=== PATIENT | female | born 1970 | race African-American/Black ===

== ENCOUNTER 2018-08-19 08:58 | Day surgery (SDC) | payer OTHER ==
[2018-08-19] MEDS ORDERED: DUOVISC 1 KIT OPTH ONE (09:15)
[2018-08-19] MEDS ORDERED: BALANCED SALT IRRIG PLAIN 500 ML BTL IRR ONE (09:15)
[2018-08-19] MEDS ORDERED: MOXIFLOXACIN HCL 10 DROPS/ML **OR USE OPTH ONE (09:15)
[2018-08-19] MEDS ORDERED: EPINEPHRINE/PF 1 MG/ML AMP ONE (09:15)
[2018-08-19] MEDS ORDERED: NS 0.9% VIAL 10 ML ONE (09:15)
[2018-08-19] MEDS ORDERED: GENTAMICIN 0.3% OPTH DROP 5ML OPTH SCH (09:30)
[2018-08-19] MEDS ORDERED: NA CHLORIDE 0.9% 500 ML ONE (09:39)
[2018-08-19] MEDS: CYCLOPENTOLATE 1% OPTH 2 ML ONE ×3 (09:40→09:55)
[2018-08-19] MEDS: PHENYLEPHRINE 10% OPTH 5ML ONE ×3 (09:40→09:55)
[2018-08-19] MEDS: TETRACAINE HCL 0.5% 2ML OPTH ONE ×2 (09:59→10:43)
[2018-08-19] MEDS: BUPIVACAINE 0.25% PF 10 ML VIAL ONE ×2 (09:59→10:44)
[2018-08-19] MEDS: LIDOCAINE 2% MPF 5 ML VIAL ONE ×2 (10:00→10:44)
[2018-08-19] MEDS ORDERED: LIDOCAINE 1% MPF 5 ML VIAL ONE (10:49)
[2018-08-19] MEDS ORDERED: MIDAZOLAM HCL 2 MG/2 ML INJ ONE (10:49)
[2018-08-19] MEDS ORDERED: PROPOFOL 200 MG/20 ML VIAL IV ONE (10:49)
--- NOTE | 2018-08-19 11:29 | P.BOP ---
Preoperative diagnosis: Nuclear sclerotic and cortical cataract OD Postoperative diagnosis: Same Primary procedure: Phacoemulsification with IOL OD Estimated blood loss: None Anesthesia: Local (Subtenon's infusion with anesthesia for cataract surgery) Complications: None Implants: ZCB00 +13.0 Transferred to: Other (Day surgery) Condition: Good
[2018-08-19 12:07] VITALS: BP 139/80; TEMP 97.6; O2SAT 100
--- NOTE | 2018-08-19 22:33 | OP ---
Date of Procedure: 08/19/2018 Surgeon: Elyssa Floyd MD Anesthesiologist: Marty Menezes CRNA and Gustavo Thapa M.D. Preoperative Diagnosis: Nuclear sclerotic and cortical cataract, right eye. Operation Performed: Phacoemulsification with intraocular lens implant, right eye. Anesthesia: Per cataract surgery. Complications: None. Description Of Procedure: In day surgery, the patient was prepped with Betadine and draped. A conju nctival incision was made in the inferior nasal quadrant with Christy scissors. A sub-Tenon block c onsisting of a 1:1 mixture of 2% Xylocaine and 0.25% bupivacaine was placed through the conjunctival incision with a blunt cannula. A Honan balloon was placed over the eye and the patient was transferr ed to the operating room. In the operating room the patient was prepped and draped in the usual sterile fashion for ophthalmic surgery. A lid speculum was placed in the right eye. Two paracentesis sites were made superiorly an d inferiorly in the limbal cornea. Viscoat was placed in the anterior chamber and a crescent blade w as used to make a corneal groove and tunnel, and a keratome was used to enter the anterior chamber. Provisc was placed in the anterior chamber and a 360 degree capsulotomy was performed with a cystitom e. The lens was hydrodissected with BSS and rotated freely. The lens was removed with a stop and ch op technique. 5.08 Phaco CDE was used to remove the lens. Residual cortex was removed with the irri gation and aspiration. Provisc was placed in the capsular bag. A ZCB00 +13.0 lens was placed in the capsular bag without complications. Irrigation and aspiration were used to remove residual viscoela stic. The paracentesis sites were hydrated with BSS. The wound and paracentesis sites were inspecte d and found to be watertight. Vigamox 0.07 cc was placed intracamerally at the end of the procedure. The eye was irrigated with balanced salt solution. The eye was patched with a soft cotton patch an d Pope metal shield. The patient was returned to day surgery in good condition. Comments: Discharge Instructions: Ms. Swan is discharged to home in good condition. She is to follow up dante Floyd today at 3 and then in the morning. YESSIL/JEVON Voice ID: [id number] Report ID: [id number]
== END 2018-08-19 11:55 | disposition home or self-care (01) ==
LOC: OR 08:58
PROVIDERS: ATTEND Ophthalmology Retina Specialist
PROC: 08RJ3JZ Replacement of Right Lens with Synthetic Substitute, Percutaneous Approach (ICD-10-PCS; principal; 2018-08-19 10:00)
DX: H25.11 Age-related nuclear cataract, right eye (principal); H25.011 Cortical age-related cataract, right eye; H40.053 Ocular hypertension, bilateral; I10 Essential (primary) hypertension; K21.9 Gastro-esophageal reflux disease without esophagitis; E66.01 Morbid (severe) obesity due to excess calories; Z68.36 Body mass index [BMI] 36.0-36.9, adult; Z83.518 Family history of other specified eye disorder; Z83.3 Family history of diabetes mellitus
CPT/HCPCS: 66984; J0171; J2250; J2704

== ENCOUNTER 2019-01-03 00:42 | Emergency (ER) | payer OTHER ==
[2019-01-03] MEDS ORDERED: ONDANSETRON 4 MG/2 ML VIAL ONE (01:32)
[2019-01-03] MEDS ORDERED: FENTANYL CITR 100 MCG/2 ML ONE ×2 (01:32→02:16)
[2019-01-03] MEDS ORDERED: FAMOTIDINE 20 MG/2 ML VIAL IV ONE (01:32)
[2019-01-03] MEDS ORDERED: NA CHLORIDE 0.9% 1,000 ML ONE (01:32)
[2019-01-03 01:46] LABS: Absolute Lymphocytes (CBC) 2.4 K/uL (0.7-4.9); Absolute Monocytes 0.6 K/uL (0.1-1.3); Absolute Neutrophil 13.5 K/uL (1.8-8.0); Basophils % 0.4 % (0-1.3); Eosinophils % 0.2 % (0-4.4); Hematocrit 50.7 % (36.0-45.0); Lymphocytes % 14.5 % (15.3-44.8); MPV 7.5 fL (7.6-11.3); Monocytes % 3.9 % (3.3-12.3); RBC Red Blood Cell Count 5.85 M/uL (3.86-4.86)
[2019-01-03 01:59] LABS: Albumin 3.9 g/dL (3.4-5.0); Bilirubin Direct 0.4 mg/dL (0-0.2); Bilirubin Total 1.7 mg/dL (0.2-1.0); Potassium 3.9 mmol/L (3.5-5.1); Protein, Total 9.2 g/dL (6.4-8.2)
[2019-01-03 02:58] LABS: Urine Bacteria 20-50 /HPF (<20); Urine Culture Reflex Order REFLEXED; Urine RBC <5 /HPF (NONE SEEN)
[2019-01-03] MEDS ORDERED: MORPHINE 4 MG/ML SYR ONE (04:15)
--- NOTE | 2019-01-03 04:30 | EDPHYS ---
Physician Documentation [facility] Name: Vanna Swan Age: 48 yrs Sex: Female : 1970 Arrival Date: 01/03/2019 Time: 00:48 Bed 5 Private MD: ED Physician Gamaliel Olsen HPI: 01/03 04:25 This 48 yrs old Black Female presents to ER via EMS with complaints of gs Nausea/Vomiting/Diarrhea. 04:25 The patient presents to the emergency department with nausea, vomiting, diarrhea. gs Onset: The symptoms/episode began/occurred acutely, yesterday. Possible causes: unknown. The symptoms are aggravated by nothing. The symptoms are alleviated by nothing. Associated signs and symptoms: Pertinent positives: abdominal pain, Pertinent negatives: fever. Severity of symptoms: At their worst the symptoms were severe in the emergency department the symptoms have improved markedly. The patient has experienced similar episodes in the past, a few times. The patient has not recently seen a physician. USED [facility] [employer] [facility]: 00:53 LMP N/A - ao Historical: - Allergies: 00:52 No Known Allergies; ao - Home Meds: 00:52 Lisinopril Oral [Active]; pantoprazole oral oral [Active]; topiramate oral oral ao [Active]; - PMHx: 00:52 Irregular heart rate; Hypertension; Ulcers; ao - PSHx: 00:52 None; ao - Immunization history:: Adult Immunizations up to date. - Social history:: Smoking status: Patient uses tobacco products, smokes one pack cigarettes per day. Patient uses alcohol, occasionally. Patient/guardian denies using street drugs, IV drugs. - Ebola Screening: : Patient negative for fever greater than or equal to 101.5 degrees Fahrenheit, and additional compatible Ebola Virus Disease symptoms Patient denies exposure to infectious person Patient denies travel to an Ebola-affected area in the 21 days before illness onset. ROS: 04:25 All other systems are negative. gs Exam: 04:25 Head/Face: Normocephalic, atraumatic. Eyes: Pupils equal round and reactive to light, gs extra-ocular motions intact. Lids and lashes normal. Conjunctiva and sclera are non-icteric and not injected. Cornea within normal limits. Periorbital areas with no swelling, redness, or edema. ENT: Nares patent. No nasal discharge, no septal abnormalities noted. Tympanic membranes are normal and external auditory canals are clear. Oropharynx with no redness, swelling, or masses, exudates, or evidence of obstruction, uvula midline. Mucous membranes moist. Neck: Trachea midline, no thyromegaly or masses palpated, and no cervical lymphadenopathy. Supple, full range of motion without nuchal rigidity, or vertebral point tenderness. No Meningismus. Chest/axilla: Normal chest wall appearance and motion. Nontender with no deformity. No lesions are appreciated. 04:25 Respiratory: Lungs have equal breath sounds bilaterally, clear to auscultation and percussion. No rales, rhonchi or wheezes noted. No increased work of breathing, no retractions or nasal flaring. Back: No spinal tenderness. No costovertebral tenderness. Full range of motion. Skin: Warm, dry with normal turgor. Normal color with no rashes, no lesions, and no evidence of cellulitis. MS/ Extremity: Pulses equal, no cyanosis. Neurovascular intact. Full, normal range of motion. Neuro: Awake and alert, GCS 15, oriented to person, place, time, and situation. Cranial nerves II-XII grossly intact. Motor strength 5/5 in all extremities. Sensory grossly intact. Cerebellar exam normal. Normal gait. 04:25 Constitutional: The patient appears alert, awake. 04:25 Cardiovascular: Rate: tachycardic, Rhythm: regular, Pulses: no pulse deficits are appreciated. 04:25 Abdomen/GI: Palpation: mild abdominal tenderness, in all quadrants, rebound tenderness, is not appreciated. Vital Signs: 00:53 BP 119 / 89; Pulse 114; Resp 20; Temp 98.2(O); Pulse Ox 98% on R/A; Weight 132.9 kg ao (R); Height 6 ft. 2 in. (187.96 cm) (R); Pain 7/10; 01:55 BP 112 / 84; Pulse 98; Resp 16; Pulse Ox 99% ; ao 03:34 BP 113 / 83; Pulse 83; Resp 16; Pulse Ox 98% on R/A; ao 04:50 BP 115 / 75; Pulse 84; Resp 16; Temp 98.0(O); Pulse Ox 99% on R/A; Pain 0/10; ao 00:53 Body Mass Index 37.62 (132.90 kg, 187.96 cm) ao MDM: 01:02 Patient medically screened. 04:25 Differential diagnosis: Nonspecific abd pain, gastritis, pancreatitis, viral gs gastroenteritis, gastroenteritis. Data reviewed: vital signs, nurses notes. Counseling: I had a detailed discussion with the patient and/or guardian regarding: the historical points, exam findings, and any diagnostic results supporting the discharge/admit diagnosis, lab results, radiology results, the need for outpatient follow up. Response to treatment: the patient's symptoms have markedly improved after treatment, the patient's symptoms have resolved after treatment, patient is well hydrated. 01/03 01:01 Order name: Basic Metabolic Panel; Complete Time: 02:51 01/03 01:01 Order name: CBC with Diff; Complete Time: 02:51 01/03 01:01 Order name: Hepatic Function; Complete Time: 02:51 01/03 01:01 Order name: Lipase; Complete Time: 02:51 01/03 01:01 Order name: Urine Microscopic Only; Complete Time: 04:33 01/03 03:01 Order name: Urine Culture EDDE 01/03 01:01 Order name: IV Saline Lock; Complete Time: 01:36 01/03 02:52 Order name: CT Abd/Pelvis - W/Contrast 01/03 01:01 Order name: Labs collected and sent; Complete Time: 01:36 01/03 01:01 Order name: Urine Test (obtain specimen); Complete Time: 01:36 01/03 01:01 Order name: Urine Dipstick-Ancillary (obtain specimen); Complete Time: 01:36 gs Administered Medications: 01:30 Drug: Zofran 4 mg Route: IVP; Site: right antecubital; ao 04:55 Follow up: Response: No adverse reaction ao 01:34 Drug: NS 0.9% 1000 ml Route: IV; Rate: 1 bolus; Site: right antecubital; ao 04:55 Follow up: IV Status: Completed infusion; IV Intake: 1000ml ao 01:35 Drug: Pepcid 20 mg Route: IVP; Site: right antecubital; ao 04:55 Follow up: Response: No adverse reaction ao 01:35 Drug: fentaNYL (PF) 50 mcg Route: IVP; Site: right antecubital; ao 04:55 Follow up: Response: No adverse reaction ao 02:04 Drug: fentaNYL (PF) 50 mcg Route: IVP; Site: right antecubital; ao 04:54 Follow up: Response: No adverse reaction ao 04:05 Drug: morphine 4 mg Route: IVP; Site: right antecubital; ao 04:53 Follow up: Response: No adverse reaction ao Disposition: 01/03/19 04:29 Discharged to Home. Impression: Noninfective gastroenteritis and colitis, unspecified. - Condition is Stable. - Prescriptions for Tylenol- Codeine #4 300-60 mg Oral Tablet - take 1 tablet by ORAL route every 6 hours As needed; 10 tablet. Zofran 4 mg Oral Tablet - take 1 tablet by ORAL route every 12 hours As needed; 10 tablet. Flagyl 250 mg Oral Tablet - take 1 tablet by ORAL route every 12 hours for 5 days; 10 tablet. - Medication Reconciliation Form, Thank You Letter, Antibiotic Education, Prescription Opioid Use form. - Follow up: Private Physician; When: 2 - 3 days; Reason: Re-evaluation by your physician. Signatures: Dispatcher [employer] Homar Clifton RN RN Gamaliel Salinas MD MD Corrections: (The following items were deleted from the chart) 04:56 04:29 01/03/2019 04:29 Discharged to Home. Impression: Noninfective gastroenteritis and ao colitis, unspecified. Condition is Stable. Forms are Medication Reconciliation Form, Thank You Letter, Antibiotic Education, Prescription Opioid Use. Follow up: Private Physician; When: 2 - 3 days; Reason: Re-evaluation by your physician. gs
--- NOTE | 2019-01-03 04:30 | ER ---
Nurse's Notes [facility] Name: Vanna Swan Age: 48 yrs Sex: Female : 1970 Arrival Date: 01/03/2019 Time: 00:48 Bed 5 Private MD: Diagnosis: Noninfective gastroenteritis and colitis, unspecified Presentation: 01/03 00:48 Presenting complaint: Patient states: Patient C/O nausea, vomiting and diarrhea for a ao day. Patient also C/O abdominal pain. Patient reports last eating was chicken yesterday. Transition of care: patient was not received from another setting of care. Onset of symptoms is unknown. Risk Assessment: Do you want to hurt yourself or someone else? Patient reports no desire to harm self or others. Initial Sepsis Screen: Does the patient meet any 2 criteria? No. Patient's initial sepsis screen is negative. Does the patient have a suspected source of infection? No. Patient's initial sepsis screen is negative. Care prior to arrival: None. 00:48 Method Of Arrival: EMS: [facility] ao 00:48 Acuity: AILEEN 3 ao Triage Assessment: 00:55 General: Appears in no apparent distress. comfortable, Behavior is calm, cooperative, ao appropriate for age. Pain: Complains of pain in abdomen Pain does not radiate. Pain currently is 7 out of 10 on a pain scale. EENT: No signs and/or symptoms were reported regarding the EENT system. Neuro: Level of Consciousness is awake, alert, obeys commands, Oriented to person, place, time, situation, Appropriate for age Moves all extremities. Full function Speech is normal, Facial symmetry appears normal. Cardiovascular: Capillary refill < 3 seconds Patient's skin is warm and dry. Respiratory: Airway is patent Respiratory effort is even, unlabored, Respiratory pattern is regular, symmetrical. GI: Abdomen is obese, Bowel sounds present X 4 quads. Reports lower abdominal pain. : No signs and/or symptoms were reported regarding the genitourinary system. Derm: No signs and/or symptoms reported regarding the dermatologic system. Musculoskeletal: No signs and/or symptoms reported regarding the musculoskeletal system. 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 - Social history:: Smoking status: Patient uses tobacco products, smokes one pack cigarettes per day. Patient uses alcohol, occasionally. Patient/guardian denies using street drugs, IV drugs. - Ebola Screening: : Patient negative for fever greater than or equal to 101.5 degrees Fahrenheit, and additional compatible Ebola Virus Disease symptoms Patient denies exposure to infectious person Patient denies travel to an Ebola-affected area in the 21 days before illness onset. Screenin:54 Abuse screen: Denies threats or abuse. Denies injuries from another. Nutritional ao screening: No deficits noted. Tuberculosis screening: No symptoms or risk factors identified. Fall Risk None identified. Assessment: 00:56 General: Appears See triage assessment. GI: No deficits noted. ao 01:55 Reassessment: Patient appears in no apparent distress at this time. No changes from ao previously documented assessment. Patient and/or family updated on plan of care and expected duration. Pain level reassessed. Patient is alert, oriented x 3, equal unlabored respirations, skin warm/dry/pink. 03:34 Reassessment: Patient appears in no apparent distress at this time. Patient and/or ao family updated on plan of care and expected duration. Pain level reassessed. Patient is alert, oriented x 3, equal unlabored respirations, skin warm/dry/pink. Waiting on dispo orders. 04:52 Reassessment: DC instruction given to patient. Patient agree with POC and to follow up ao with PCP. No questions at this time. Vital Signs: 00:53 BP 119 / 89; Pulse 114; Resp 20; Temp 98.2(O); Pulse Ox 98% on R/A; Weight 132.9 kg ao (R); Height 6 ft. 2 in. (187.96 cm) (R); Pain 7/10; 01:55 BP 112 / 84; Pulse 98; Resp 16; Pulse Ox 99% ; ao 03:34 BP 113 / 83; Pulse 83; Resp 16; Pulse Ox 98% on R/A; ao 04:50 BP 115 / 75; Pulse 84; Resp 16; Temp 98.0(O); Pulse Ox 99% on R/A; Pain 0/10; ao 00:53 Body Mass Index 37.62 (132.90 kg, 187.96 cm) ao ED Course: 00:47 Gamaliel Olsen MD is Attending Physician. gs 00:48 Patient arrived in ED. ao 00:50 Triage completed. ao 00:54 Arm band placed on right wrist. Patient placed in an exam room, on a stretcher, on ao pulse oximetry. 00:56 Patient has correct armband on for positive identification. Pulse ox on. NIBP on. ao 01:03 Homar Garces, RN is Primary Nurse. ao 01:30 Inserted saline lock: 22 gauge in right antecubital area, using aseptic technique. ao Blood collected. 03:37 CT Abd/Pelvis - W/Contrast In Process Unspecified. EDMS 04:52 No provider procedures requiring assistance completed. IV discontinued, intact, ao bleeding controlled, No redness/swelling at site. Pressure dressing applied. Administered Medications: 01:30 Drug: Zofran 4 mg Route: IVP; Site: right antecubital; ao 04:55 Follow up: Response: No adverse reaction ao 01:34 Drug: NS 0.9% 1000 ml Route: IV; Rate: 1 bolus; Site: right antecubital; ao 04:55 Follow up: IV Status: Completed infusion; IV Intake: 1000ml ao 01:35 Drug: Pepcid 20 mg Route: IVP; Site: right antecubital; ao 04:55 Follow up: Response: No adverse reaction ao 01:35 Drug: fentaNYL (PF) 50 mcg Route: IVP; Site: right antecubital; ao 04:55 Follow up: Response: No adverse reaction ao 02:04 Drug: fentaNYL (PF) 50 mcg Route: IVP; Site: right antecubital; ao 04:54 Follow up: Response: No adverse reaction ao 04:05 Drug: morphine 4 mg Route: IVP; Site: right antecubital; ao 04:53 Follow up: Response: No adverse reaction ao Intake: 04:55 IV: 1000ml; Total: 1000ml. ao Outcome: 04:29 Discharge ordered by . gs 04:53 Discharged to home ambulatory. ao 04:53 Condition: stable 04:53 Discharge instructions given to patient, Instructed on discharge instructions, follow up and referral plans. Demonstrated understanding of instructions, follow-up care, medications, Prescriptions given X 3. 04:56 Patient left the ED. ao Signatures: Dispatcher [employer] Homar Perry RN RN Gamaliel Salinas MD MD
[2019-01-03 05:22] VITALS: BP 115/75; TEMP 98; O2SAT 99
--- NOTE | 2019-01-03 10:17 | RAD REPORT ---
EXAM DESCRIPTION: CT - Abdomen Pelvis W Contrast - 01/03/2019 3:35 am COMPARISON: CT abdomen pelvis July 09, 2014 Indication: Abdominal pain TECHNIQUE: Multiple helical axial images were obtained through the abdomen and pelvis using intraven ous contrast. Coronal and sagittal reformatted images were obtained. All CT scans at this facility use dose modulation, iterative reconstruction, and/or weight-based dosi ng when appropriate to reduce radiation dose to as low as reasonably achievable. FINDINGS: Lung bases: A small hiatal hernia is present. Liver: Low-attenuation is present suggestive of fatty changes. Gallbladder/biliary: Appears unremarkable Pancreas: Unremarkable. No evidence of ductal enlargement. Spleen: Appears unremarkable. No splenomegaly. Adrenals: Unremarkable. Kidneys and ureters: No evidence of hydronephrosis. Normal enhancement. Bladder: Unremarkable. Pelvic organs: A few calcific densities in the uterus suggestive of fibroids. Bowel: Mildly thickened small bowel loops in the mid abdomen demonstrated with adjacent mesenteric st randing suggestive of enteritis. There is low-attenuation within the colonic wall which may be relate d to prior inflammation. No evidence of bowel obstruction. Appendix appears unremarkable. Vasculature: Unremarkable. Peritoneum: No free air. There is a small amount of ascites. Lymph nodes: Unremarkable. Soft tissues: Unremarkable. Bones: Vacuum disc phenomenon and osteophyte formation at L2-L3 noted. IMPRESSION: 1. Findings suggestive of enteritis involving several bowel loops in the midabdomen. 2. Small amount of ascites. Electronically signed by: Navdeep Broussard MD 01/03/2019 3:56 AM CDT Due to temporary technical issues with the PACS/Fluency reporting system, reports are being signed by the in house radiologist as a courtesy to ensure prompt reporting. The interpreting radiologist is f ully responsible for the content of the report.
== END 2019-01-03 04:56 | disposition home or self-care (01) ==
LOC: ER 00:42
DX: K52.9 Noninfective gastroenteritis and colitis, unspecified (principal); I10 Essential (primary) hypertension; F17.210 Nicotine dependence, cigarettes, uncomplicated
CPT/HCPCS: 96361; 87088; 85025; 87086; 80048; 36415; 80076; 81015; 83690; 74177; 96375; 96374; 99284; Q9967; J3010 ×2; J7030; J2405

== ENCOUNTER 2019-01-27 11:31 | Day surgery (SDC) | payer OTHER ==
[2019-01-27] MEDS ORDERED: BALANCED SALT IRRIG PLAIN 500 ML BTL IRR ONE (11:52)
[2019-01-27] MEDS ORDERED: EPINEPHRINE/PF 1 MG/ML AMP ONE (11:52)
[2019-01-27] MEDS ORDERED: NS 0.9% VIAL 10 ML ONE (11:52)
[2019-01-27] MEDS ORDERED: DUOVISC 1 KIT OPTH ONE ×2 (11:52→14:37)
[2019-01-27] MEDS ORDERED: MOXIFLOXACIN HCL 10 DROPS/ML **OR USE OPTH ONE (11:53)
[2019-01-27] MEDS ORDERED: NA CHLORIDE 0.9% 500 ML ONE (11:59)
[2019-01-27] MEDS ORDERED: CYCLOPENTOLATE 1% OPTH 2 ML ONE (11:59)
[2019-01-27] MEDS ORDERED: PHENYLEPHRINE 10% OPTH 5ML ONE (11:59)
[2019-01-27] MEDS ORDERED: PHENYLEPHRINE 10% OPTH 5ML OPTH ONE ×3 (12:10→12:20)
[2019-01-27] MEDS ORDERED: Gatifloxacin Ophth 0.5% (2.5 ML BTL) OPTH ONE ×4 (12:10→12:20)
[2019-01-27] MEDS ORDERED: CYCLOPENTOLATE 1% OPTH 2 ML OPTH ONE ×3 (12:10→12:20)
[2019-01-27 12:16] VITALS: O2SAT 100
[2019-01-27] MEDS: TETRACAINE HCL 0.5% 4ML OPTH ONE ×2 (12:41→13:04)
[2019-01-27] MEDS: BUPIVACAINE 0.25% PF 10 ML VIAL ONE ×2 (12:42→13:05)
[2019-01-27] MEDS: LIDOCAINE 2% MPF 5 ML VIAL ONE ×2 (12:43→13:05)
[2019-01-27] MEDS ORDERED: PROPOFOL 200 MG/20 ML VIAL IV ONE ×2 (12:56→13:07)
[2019-01-27] MEDS ORDERED: LIDOCAINE 2% MPF 5 ML VIAL ONE (12:56)
[2019-01-27] MEDS ORDERED: LIDOCAINE 2% INJ, MPF 2 ML 1 ML ONE (13:08)
--- NOTE | 2019-01-27 13:48 | P.BOP ---
Preoperative diagnosis: Nuclear sclerotic cataract OS Postoperative diagnosis: Same Primary procedure: Phacoemulsification with IOL OS Estimated blood loss: None Anesthesia: Local (Subtenon's infusion with anesthesia for cataract surgery) Complications: None Implants: ZCB00 +17.0 Transferred to: Other (Day surgery) Condition: Good
[2019-01-27 14:12] VITALS: BP 109/78; TEMP 97.1
--- NOTE | 2019-01-27 22:51 | OP ---
Date of Procedure: 01/27/2019 Surgeon: Elyssa Floyd MD Anesthesiologist: Julian Stewart CRNA and Major Rivera MD. Preoperative Diagnosis: Nuclear sclerotic cataract, left eye. Operation Performed: Phacoemulsification with intraocular lens implant, left eye. Anesthesia: Per cataract surgery. Complications: None. Description Of Procedure: In day surgery, the patient was prepped with Betadine and draped. A conju nctival incision was made in the inferior nasal quadrant with Christy scissors. A sub-Tenon block c onsisting of a 1:1 mixture of 2% Xylocaine and 0.25% bupivacaine was placed through the conjunctival incision with a blunt cannula. A Honan balloon was placed over the eye and the patient was transferr ed to the operating room. In the operating room the patient was prepped and draped in the usual sterile fashion for ophthalmic surgery. A lid speculum was placed in the left eye. Two paracentesis sites were made superiorly and inferiorly in the limbal cornea. Viscoat was placed in the anterior chamber and a crescent blade wa s used to make a corneal groove and tunnel, and a keratome was used to enter the anterior chamber. P rovisc was placed in the anterior chamber and a 360 degree capsulotomy was performed with a cystitome . The lens was hydrodissected with BSS and rotated freely. The lens was removed with a stop and cho p technique. 3.81 phaco CDE was used to remove the lens. Residual cortex was removed with the irrig ation and aspiration. Provisc was placed in the capsular bag. A ZCB00 +17.0 lens was placed in the capsular bag without complications. Irrigation and aspiration were used to remove residual viscoelas tic. The paracentesis sites were hydrated with BSS. The wound and paracentesis sites were inspected and found to be watertight. Vigamox 0.07 cc was placed intracamerally at the end of the procedure. The eye was irrigated with balanced salt solution. The eye was patched with a soft cotton patch and Pope metal shield. The patient was returned to day surgery in good condition. Comments: Discharge Instructions: Ms. Swan is discharged to home in good condition. She is to follow up dante Floyd today at 3 to check her pressure and then in the morning. ALPESH/JEVON Voice ID: [id number] Report ID: [id number]
== END 2019-01-27 14:20 | disposition home or self-care (01) ==
LOC: OR 11:31
PROVIDERS: ATTEND Ophthalmology Retina Specialist
PROC: 08RK3JZ Replacement of Left Lens with Synthetic Substitute, Percutaneous Approach (ICD-10-PCS; principal; 2019-01-27 11:30)
DX: H25.12 Age-related nuclear cataract, left eye (principal); I10 Essential (primary) hypertension; K21.9 Gastro-esophageal reflux disease without esophagitis; Z79.899 Other long term (current) drug therapy; F17.200 Nicotine dependence, unspecified, uncomplicated
CPT/HCPCS: 66984; J2704; J0171; J3490

== ENCOUNTER 2019-03-02 21:13 | Emergency (ER) | payer OTHER ==
[2019-03-02] MEDS ORDERED: DICYCLOMINE HCL 10 MG CAP ONE (21:56)
[2019-03-02] MEDS ORDERED: NA CHLORIDE 0.9% 1,000 ML ONE (21:56)
[2019-03-02] MEDS ORDERED: PANTOPRAZOLE 40 MG INJ ONE (21:56)
[2019-03-02] MEDS ORDERED: DIPHENOX/ATROP SULF 1 TAB PO ONE (21:56)
[2019-03-02] MEDS ORDERED: ONDANSETRON 4 MG/2 ML VIAL ONE (21:56)
[2019-03-02 22:56] LABS: Basophils % 0.4 % (0-1.3); Eosinophils % 0.2 % (0-4.4); Hematocrit 50.6 % (36.0-45.0); Lymphocytes % 11.5 % (15.3-44.8); MPV 7.6 fL (7.6-11.3); Monocytes % 3.6 % (3.3-12.3); RBC Red Blood Cell Count 5.61 M/uL (3.86-4.86)
[2019-03-02 23:01] LABS: Albumin 3.9 g/dL (3.4-5.0); Bilirubin Direct 0.5 mg/dL (0-0.2); Bilirubin Total 1.9 mg/dL (0.2-1.0); Potassium 3.5 mmol/L (3.5-5.1); Protein, Total 8.7 g/dL (6.4-8.2)
[2019-03-02] MEDS ORDERED: KETOROLAC 30 MG/ML INJ ONE (23:40)
[2019-03-03] MEDS ORDERED: NA CHLORIDE 0.9% 1,000 ML ONE (00:24)
--- NOTE | 2019-03-03 04:02 | EDPHYS ---
Physician Documentation [facility] Name: Vanna Swan Age: 49 yrs Sex: Female : 1970 Arrival Date: 03/02/2019 Time: 21:16 Bed 6 Private MD: ED Physician Jhonny Lozada HPI: 03/02 22:02 This 49 yrs old Black Female presents to ER via EMS with complaints of tw4 Nausea/Vomiting/Diarrhea. 22:02 The patient presents to the emergency department with nausea, vomiting. Onset: The tw4 symptoms/episode began/occurred today. Possible causes: unknown. The symptoms are aggravated by nothing. The symptoms are alleviated by nothing. The patient has not experienced similar symptoms in the past. Historical: - Allergies: 21:26 No Known Allergies; ak1 - Home Meds: 21:26 lisinopril Oral [Active]; pantoprazole Oral [Active]; topiramate Oral [Active]; ak1 carvedilol oral oral [Active]; unknown fluid pill [Active]; - PMHx: 21:26 Hypertension; Irregular heart rate; Ulcers; colitis; ak1 - PSHx: 21:26 None; ak1 - Immunization history:: Adult Immunizations up to date. - Social history:: Smoking status: Patient/guardian denies using tobacco. - Ebola Screening: : No symptoms or risks identified at this time. ROS: 22:02 Constitutional: Negative for fever, chills, and weight loss, Eyes: Negative for injury, tw4 pain, redness, and discharge, Cardiovascular: Negative for chest pain, palpitations, and edema, Respiratory: Negative for shortness of breath, cough, wheezing, and pleuritic chest pain, Back: Negative for injury and pain. 22:02 MS/Extremity: Negative for injury and deformity, Skin: Negative for injury, rash, and discoloration, Neuro: Negative for headache, weakness, numbness, tingling, and seizure. 22:02 Abdomen/GI: Positive for abdominal pain, nausea and vomiting, nausea, vomiting, and diarrhea, nausea, vomiting, diarrhea, Negative for abdominal distension, black/tarry stool, rectal pain, acute changes. Exam: 03/03 03:58 Constitutional: This is a well developed, well nourished patient who is awake, alert, tw4 and in no acute distress. Head/Face: Normocephalic, atraumatic. Chest/axilla: Normal chest wall appearance and motion. Nontender with no deformity. No lesions are appreciated. Cardiovascular: Regular rate and rhythm with a normal S1 and S2. No gallops, murmurs, or rubs. Normal PMI, no JVD. No pulse deficits. Respiratory: Lungs have equal breath sounds bilaterally, clear to auscultation and percussion. No rales, rhonchi or wheezes noted. No increased work of breathing, no retractions or nasal flaring. Back: No spinal tenderness. No costovertebral tenderness. Full range of motion. MS/ Extremity: Pulses equal, no cyanosis. Neurovascular intact. Full, normal range of motion. Neuro: Awake and alert, GCS 15, oriented to person, place, time, and situation. Cranial nerves II-XII grossly intact. Motor strength 5/5 in all extremities. Sensory grossly intact. Cerebellar exam normal. Normal gait. Psych: Awake, alert, with orientation to person, place and time. Behavior, mood, and affect are within normal limits. Abdomen/GI: Inspection: abdomen appears normal, Bowel sounds: diminished, Palpation: mild abdominal tenderness. Vital Signs: 03/02 21:23 BP 105 / 85; Pulse 99; Resp 16; Temp 97.6; Pulse Ox 98% on R/A; Weight 128.82 kg (R); ak1 Height 6 ft. 2 in. (187.96 cm) (R); Pain 10/10; 22:00 BP 99 / 74; Pulse 96; Resp 16; Temp 98.1; Pulse Ox 99% on R/A; ak1 22:30 BP 118 / 95; Pulse 99; Resp 16; Temp 98.1; Pulse Ox 99% on R/A; ak1 23:53 BP 139 / 91; Pulse 88; Resp 16; Temp 98.1; Pulse Ox 99% on R/A; ak1 03/03 01:44 BP 116 / 76; Pulse 73; Resp 16; Temp 98.1; Pulse Ox 99% on R/A; ak1 04:37 BP 113 / 80; Pulse 85; Resp 14; Pulse Ox 97% on R/A; ak1 03/02 21:23 Body Mass Index 36.46 (128.82 kg, 187.96 cm) ak1 MDM: 03/02 21:18 Patient medically screened. tw4 03/03 03:58 Differential diagnosis: Nonspecific abd pain, gastritis. Data reviewed: vital signs, tw4 nurses notes. Data interpreted: Pulse oximetry: Interpretation: normal. Counseling: I had a detailed discussion with the patient and/or guardian regarding: the historical points, exam findings, and any diagnostic results supporting the discharge/admit diagnosis, lab results, radiology results. Medication response: morphine partially relieved the patient's pain, Toradol markedly relieved the patient's pain. Response to treatment: the patient's symptoms have markedly improved after treatment, and as a result, I will discharge patient. Special discussion: Based on the patient's Hx, exam, and Dx evaluation, there is no indication for emergent surgery or inpatient Tx. It is understood by the patient/guardian that if the Sx's persist or worsen they need to return immediately for re-evaluation. I discussed with the patient/guardian in detail that at this point there is no indication for admission to the hospital. It is understood, however, that if the symptoms persist or worsen the patient needs to return immediately for re-evaluation. 03/02 21:20 Order name: Basic Metabolic Panel tw 03/02 21:20 Order name: CBC with Diff tw 03/02 21:20 Order name: Hepatic Function tw4 03/02 21:20 Order name: Lipase tw 03/02 21:51 Order name: Basic Metabolic Panel; Complete Time: 23:45 EDMS 03/02 23:45 Interpretation: GLUC 126; CRE 1.60; GFR 42. tw4 03/02 21:51 Order name: CBC with Automated Diff; Complete Time: 23:44 EDMS 03/02 23:44 Interpretation: Normal except: WBC 17.2; RBC 5.61; HGB 16.4; HCT 50.6; MCV 90.3. tw4 03/03 00:23 Order name: CT Abd/Pelvis - Without Contrast tw4 03/02 21:20 Order name: IV Saline Lock; Complete Time: 21:54 tw4 03/02 21:20 Order name: Labs collected and sent; Complete Time: 21:54 tw4 Administered Medications: 03/02 21:54 Drug: NS 0.9% 1000 ml Route: IV; Rate: 1 bolus; Site: right antecubital; ak1 23:21 Follow up: IV Status: Completed infusion; IV Intake: 1000ml ak1 21:54 Drug: Zofran 4 mg Route: IVP; Site: right antecubital; ak1 23:21 Follow up: Response: No adverse reaction ak1 21:54 Drug: ProTONIX 40 mg Route: IVP; Site: right antecubital; ak1 23:21 Follow up: Response: No adverse reaction ak1 22:01 Drug: LoMOTIL 1 tabs Route: PO; ak1 23:21 Follow up: Response: No adverse reaction ak1 22:01 Drug: Bentyl 10 mg Route: PO; ak1 23:21 Follow up: Response: No adverse reaction; Pain is unchanged, physician notified ak1 23:25 Drug: TORadol 30 mg Route: IVP; Site: right antecubital; ak1 23:36 Follow up: Response: No adverse reaction ak1 03/03 00:23 Drug: NS 0.9% 1000 ml Route: IV; Rate: 1 bolus; Site: right antecubital; ea 04:42 Follow up: IV Status: Completed infusion; IV Intake: 1000ml ak1 04:33 Drug: morphine 2 mg Route: IVP; Site: right antecubital; ea 04:42 Follow up: Response: No adverse reaction; Pain is decreased ak1 Disposition: 03/03/19 04:01 Discharged to Home. Impression: ENTERITIS, Nausea and vomiting, Diarrhea, unspecified. - Condition is Stable. - Discharge Instructions: Food Choices to Help Relieve Diarrhea, Adult, Diarrhea, Adult, Nausea and Vomiting, Adult, [id number]. - Prescriptions for Zofran 8 mg Oral Tablet - take 1 tablet by ORAL route every 12 hours As needed; 20 tablet. Levsin 0.125 mg Oral Tablet - take 1 tablet by ORAL route every 6 hours; 40 tablet. - Medication Reconciliation Form, Thank You Letter, Antibiotic Education, Prescription Opioid Use form. - Follow up: Private Physician; When: Upon discharge from the Emergency Department; Reason: If symptoms return, Recheck today's complaints, Continuance of care. - Problem is new. - Symptoms have improved. Signatures: Dispatcher [employer] EDYoko Mckeon RN RN ak1 Mariama Mendoza RN RN ea Wadley, Terrence, MD MD tw4 Corrections: (The following items were deleted from the chart) 03/02 22:48 21:51 Creatinine for Radiology+C.LAB.BRZ ordered. EDMS EDMS 03/03 04:42 03/02 21:44 Urine Dipstick-Ancillary ordered. tw4 ak1 03/03 04:42 03/02 21:44 Urine Test ordered. tw4 ak1 03/03 04:43 04:01 03/03/2019 04:01 Discharged to Home. Impression: ENTERITIS; Nausea and vomiting; ak1 Diarrhea, unspecified. Condition is Stable. Forms are Medication Reconciliation Form, Thank You Letter, Antibiotic Education, Prescription Opioid Use. Follow up: Private Physician; When: Upon discharge from the Emergency Department; Reason: If symptoms return, Recheck today's complaints, Continuance of care. Problem is new. Symptoms have improved. tw4
--- NOTE | 2019-03-03 04:02 | ER ---
Nurse's Notes [facility] Name: Vanna Swan Age: 49 yrs Sex: Female : 1970 Arrival Date: 03/02/2019 Time: 21:16 Bed 6 Private MD: Diagnosis: ENTERITIS;Nausea and vomiting;Diarrhea, unspecified Presentation: 03/02 21:23 Presenting complaint: Patient states: 3 hours [employer] pt c/o N/V/D after eating ribs today. ak1 pt c/o generalized abd cramps. Transition of care: patient was not received from another setting of care. Onset of symptoms was March 02, 2019. Risk Assessment: Do you want to hurt yourself or someone else? Patient reports no desire to harm self or others. Initial Sepsis Screen: Does the patient meet any 2 criteria? No. Patient's initial sepsis screen is negative. Does the patient have a suspected source of infection? No. Patient's initial sepsis screen is negative. Care prior to arrival: None. 21:23 Method Of Arrival: EMS: [facility] ak1 21:23 Acuity: AILEEN 3 ak1 21:24 Care prior to arrival: None. ea 21:24 Acuity: AILEEN 3 ea Triage Assessment: 21:26 General: Appears in no apparent distress. uncomfortable, Behavior is cooperative, ak1 anxious, fussy. Pain: Complains of pain in abdomen. EENT: No signs and/or symptoms were reported regarding the EENT system. Neuro: No deficits noted. Cardiovascular: No deficits noted. Respiratory: No deficits noted. GI: Abdomen is round Bowel sounds present X 4 quads. Abd is soft X 4 quads Reports lower abdominal pain, upper abdominal pain, cramping, diarrhea, nausea, vomiting. : No signs and/or symptoms were reported regarding the genitourinary system. Derm: No signs and/or symptoms reported regarding the dermatologic system. Musculoskeletal: No signs and/or symptoms reported regarding the musculoskeletal system. Historical: - Allergies: 21:26 No Known Allergies; ak1 - Home Meds: 21:26 lisinopril Oral [Active]; pantoprazole Oral [Active]; topiramate Oral [Active]; ak1 carvedilol oral oral [Active]; unknown fluid pill [Active]; - PMHx: 21:26 Hypertension; Irregular heart rate; Ulcers; colitis; ak1 - PSHx: 21:26 None; ak1 - Immunization history:: Adult Immunizations up to date. - Social history:: Smoking status: Patient/guardian denies using tobacco. - Ebola Screening: : No symptoms or risks identified at this time. Screenin:23 Abuse screen: Denies threats or abuse. Nutritional screening: No deficits noted. ea Tuberculosis screening: No symptoms or risk factors identified. Fall Risk None identified. Assessment: 21:22 General: Appears uncomfortable, Behavior is restless. Pain: Complains of pain in ea abdomen. Neuro: Level of Consciousness is awake, alert, obeys commands, Oriented to person, place, time, situation. Cardiovascular: Patient's skin is warm and dry. Respiratory: Airway is patent Respiratory effort is even, unlabored, Respiratory pattern is regular, symmetrical. GI: Reports lower abdominal pain, upper abdominal pain, cramping, diarrhea, nausea, vomiting. Derm: Skin is pink, warm \\T\\ dry. Musculoskeletal: Circulation, motion, and sensation intact. 22:58 Reassessment: no vomiting noted or reported since arriving to ER6. no diarrhea or ak1 request to use restroom since arriving to ER6. provider notified of pt's continues request for "a pain shot". 23:25 Reassessment: Patient appears in no apparent distress at this time. No changes from ak1 previously documented assessment. Patient and/or family updated on plan of care and expected duration. Pain level reassessed. Patient is alert, oriented x 3, equal unlabored respirations, skin warm/dry/pink. pt refused UPT stating she has not had "sex". 23:51 Reassessment: pt informed of need for current liter of fluid to finish and that the ERP ak1 ordered a second liter to infuse. 03/03 02:02 Reassessment: pt continues to keep arm bend preventing fluids from infusing. pt ak1 currently at CT. Vital Signs: 03/02 21:23 BP 105 / 85; Pulse 99; Resp 16; Temp 97.6; Pulse Ox 98% on R/A; Weight 128.82 kg (R); ak1 Height 6 ft. 2 in. (187.96 cm) (R); Pain 10/10; 22:00 BP 99 / 74; Pulse 96; Resp 16; Temp 98.1; Pulse Ox 99% on R/A; ak1 22:30 BP 118 / 95; Pulse 99; Resp 16; Temp 98.1; Pulse Ox 99% on R/A; ak1 23:53 BP 139 / 91; Pulse 88; Resp 16; Temp 98.1; Pulse Ox 99% on R/A; ak1 03/03 01:44 BP 116 / 76; Pulse 73; Resp 16; Temp 98.1; Pulse Ox 99% on R/A; ak1 04:37 BP 113 / 80; Pulse 85; Resp 14; Pulse Ox 97% on R/A; ak1 03/02 21:23 Body Mass Index 36.46 (128.82 kg, 187.96 cm) ak1 ED Course: 03/02 21:16 Patient arrived in ED. ds1 21:18 Jhonny Lozada MD is Attending Physician. tw4 21:23 Yoko Farah, DAILY is Primary Nurse. ak1 21:24 Triage completed. ea 21:24 Patient has correct armband on for positive identification. Bed in low position. Call ea light in reach. Side rails up X2. 21:26 Arm band placed on Patient placed in an exam room, on a stretcher, on pulse oximetry, ak1 Patient notified of wait time. 22:00 Initial lab(s) drawn, by me, sent to lab. Inserted saline lock: 20 gauge in right ak1 antecubital area, using aseptic technique. Blood collected. 03/03 03:07 CT Abd/Pelvis - Without Contrast In Process Unspecified. EDMS 04:37 No provider procedures requiring assistance completed. ak1 04:42 IV discontinued, intact, bleeding controlled, No redness/swelling at site. Pressure ak1 dressing applied. Administered Medications: 03/02 21:54 Drug: NS 0.9% 1000 ml Route: IV; Rate: 1 bolus; Site: right antecubital; ak1 23:21 Follow up: IV Status: Completed infusion; IV Intake: 1000ml ak1 21:54 Drug: Zofran 4 mg Route: IVP; Site: right antecubital; ak1 23:21 Follow up: Response: No adverse reaction ak1 21:54 Drug: ProTONIX 40 mg Route: IVP; Site: right antecubital; ak1 23:21 Follow up: Response: No adverse reaction ak1 22:01 Drug: LoMOTIL 1 tabs Route: PO; ak1 23:21 Follow up: Response: No adverse reaction ak1 22:01 Drug: Bentyl 10 mg Route: PO; ak1 23:21 Follow up: Response: No adverse reaction; Pain is unchanged, physician notified ak1 23:25 Drug: TORadol 30 mg Route: IVP; Site: right antecubital; ak1 23:36 Follow up: Response: No adverse reaction ak1 03/03 00:23 Drug: NS 0.9% 1000 ml Route: IV; Rate: 1 bolus; Site: right antecubital; ea 04:42 Follow up: IV Status: Completed infusion; IV Intake: 1000ml ak1 04:33 Drug: morphine 2 mg Route: IVP; Site: right antecubital; ea 04:42 Follow up: Response: No adverse reaction; Pain is decreased ak1 Intake: 03/02 23:21 IV: 1000ml; Total: 1000ml. ak1 03/03 04:42 IV: 1000ml; Total: 2000ml. ak1 Outcome: 04:01 Discharge ordered by . tw4 04:37 Condition: improved ak1 04:37 Discharge instructions given to patient, family, Instructed on discharge instructions, follow up and referral plans. no drinking with medication, no driving heavy equipment, medication usage, Demonstrated understanding of instructions, follow-up care, medications, Prescriptions given X 2. 04:43 Discharged to home ambulatory, with family. ak1 04:43 Patient left the ED. ak1 Signatures: Dispatcher [employer] [facility] Niecy Joseph ds1 Yoko Farah RN RN ak1 Mariama Mendoza RN RN ea Wadley, Terrence, MD MD tw4 Corrections: (The following items were deleted from the chart) 02:04 03/02 23:51 Reassessment: pt informed of need for current litter of fluid to finish and ak1 that the ERP ordered a second litter to infuse. ak1
[2019-03-03] MEDS ORDERED: MORPHINE 2 MG/ML SYR ONE (04:48)
[2019-03-03 04:53] VITALS: TEMP 98.1
[2019-03-03 04:58] VITALS: BP 113/80; O2SAT 97
--- NOTE | 2019-03-03 09:41 | RAD REPORT ---
EXAM DESCRIPTION: CT - Abdomen Pelvis Wo Contrast - 03/03/2019 4:47 am CLINICAL HISTORY: The patient is 49 years old and is Female; ABD PAIN TECHNIQUE: Axial computed tomography images of the abdomen and pelvis without intravenous contrast. Sagittal and coronal reformatted images were created and reviewed. This CT exam was performed usi ng one or more of the following dose reduction techniques: automated exposure control, adjustment o f the mA and/or kV according to patient size, and/or use of iterative reconstruction technique. COMPARISON: CT of the abdomen and pelvis January 03, 2019. FINDINGS: LUNG BASES: Unremarkable. No mass. No consolidation. ABDOMEN: LIVER: The liver is mildly fatty and enlarged. GALLBLADDER AND BILE DUCTS: No calcified stones. No ductal dilation. PANCREAS: Fatty infiltration of the pancreas is noted. No ductal dilation. SPLEEN: Unremarkable. ADRENALS: Unremarkable. No mass. KIDNEYS AND URETERS: No obstructing stones. No hydronephrosis. STOMACH AND BOWEL: The stomach is minimally fluid filled. Several small bowel loops within the m id abdomen demonstrate mucosal thickening with surrounding inflammatory stranding and edema in the ad jacent mesentery. The remainder of the small bowel is normal in appearance. Stool is noted within the colon. Infiltration of the colonic mucosa by fat suggesting a history of inflammation is noted. PELVIS: APPENDIX: The appendix is normal in caliber without surrounding inflammation. BLADDER: The bladder is not well distended. REPRODUCTIVE: Calcified uterine fibroid is present. ABDOMEN and PELVIS: INTRAPERITONEAL SPACE: Free fluid is present within the pelvis. No free air. BONES/JOINTS: No acute fracture. SOFT TISSUES: The soft tissues are normal. VASCULATURE: Unremarkable. No abdominal aortic aneurysm. LYMPH NODES: Unremarkable. No enlarged lymph nodes. IMPRESSION: 1. Findings suggestive of a moderate enteritis involving several small bowel loops wit hin the midabdomen. Findings have progressed since prior exam. 2. Chronic findings as above. Electronically signed by: Minerva Rogers MD 03/03/2019 3:36 AM CDT Due to temporary technical issues with the PACS/Fluency reporting system, reports are being signed by the in house radiologist as a courtesy to ensure prompt reporting. The interpreting radiologist is eleazar gamboaly responsible for the content of the report.
== END 2019-03-03 04:43 | disposition home or self-care (01) ==
LOC: ER 21:13
DX: K52.9 Noninfective gastroenteritis and colitis, unspecified (principal); I10 Essential (primary) hypertension
CPT/HCPCS: 96361; 85025; 80048; 80076; 83690; 74176; 96375; 96374; 99284; C9113; J2270; J7030 ×2; J2405

== ENCOUNTER 2019-09-25 08:05 | Day surgery (SDC) | payer OTHER ==
[2019-09-10 11:17] LABS: Basophils % 0.8 % (0-1.3); Hematocrit 38.1 % (36.0-45.0); Lymphocytes % 26.6 % (15.3-44.8); MPV 7.3 fL (7.6-11.3); RBC Red Blood Cell Count 4.58 M/uL (3.86-4.86)
[2019-09-10 11:21] LABS: Protime INR 0.96
[2019-09-10 11:30] LABS: Potassium 3.9 mmol/L (3.5-5.1)
[2019-09-25] MEDS ORDERED: Ringers Lactate 1,000 ML IV ONE (08:58)
[2019-09-25] MEDS ORDERED: CEFAZOLIN/SWI 1gm 1 GM/10 ML SYR ONE (10:24)
[2019-09-25] MEDS ORDERED: FENTANYL CITR 100 MCG/2 ML ONE (10:32)
[2019-09-25] MEDS ORDERED: dexAMETHasone 10 MG/ML VIAL ONE (10:32)
[2019-09-25] MEDS ORDERED: propofoL 200 MG/20 ML VIAL IV ONE (10:32)
[2019-09-25] MEDS ORDERED: LIDOCAINE 1% 20 ML MDV ONE (10:32)
[2019-09-25] MEDS ORDERED: BUPIVACAINE 0.5% PF 10 ML VIAL ONE (10:32)
[2019-09-25] MEDS ORDERED: LIDOCAINE 2% MPF 5 ML VIAL ONE (10:32)
[2019-09-25] MEDS ORDERED: MIDAZOLAM HCL 2 MG/2 ML INJ ONE (10:32)
[2019-09-25] MEDS ORDERED: ONDANSETRON 4 MG/2 ML VIAL ONE (10:33)
[2019-09-25] MEDS ORDERED: KETOROLAC 30 MG/ML INJ ONE (13:24)
[2019-09-25] MEDS ORDERED: PROMETHAZINE INJ 25 MG/ML AMP ONE (13:50)
[2019-09-25] MEDS ORDERED: HYDROMORPHONE HCL 1 MG/ML INJ ONE (13:50)
[2019-09-25 14:42] VITALS: TEMP 98.9
[2019-09-25] MEDS ORDERED: HYDROCODONE/APAP 7.5/325 MG TAB ONE (15:36)
[2019-09-25 16:15] VITALS: BP 122/76; O2SAT 98
== END 2019-09-25 16:00 | disposition home or self-care (01) ==
LOC: OR 08:05
PROVIDERS: ATTEND Podiatrist Foot Surgery
PROC: 0QSN04Z Reposition Right Metatarsal with Internal Fixation Device, Open Approach (ICD-10-PCS; 2019-09-25)
PROC: 0SQP0ZZ Repair Right Toe Phalangeal Joint, Open Approach (ICD-10-PCS; principal; 2019-09-25 09:15)
DX: M20.11 Hallux valgus (acquired), right foot (principal); M20.41 Other hammer toe(s) (acquired), right foot; M21.6X1 Other acquired deformities of right foot; I10 Essential (primary) hypertension; K21.9 Gastro-esophageal reflux disease without esophagitis; Z87.891 Personal history of nicotine dependence
CPT/HCPCS: 28285 ×4; 28299; 85025; 80048; 36415; 81025; 85610; 85730; J2704; J2550; J2250; J3010; J1100; J1170; J0690; J7120; J2405

== ENCOUNTER 2021-02-27 19:19 | Emergency (ER) | payer OTHER ==
[2021-02-27 20:19] LABS: Absolute Lymphocytes (CBC) 2.2 K/uL (0.7-4.9); Hematocrit 37.7 % (36.0-45.0); Lymphocytes % 31.7 % (15.3-44.8); MPV 7.4 fL (7.6-11.3); RBC Red Blood Cell Count 4.42 M/uL (3.86-4.86)
[2021-02-27 20:21] LABS: Albumin 3.4 g/dL (3.4-5.0); Bilirubin Direct 0.3 mg/dL (0-0.2); Bilirubin Total 0.8 mg/dL (0.2-1.0); Potassium 3.7 mmol/L (3.5-5.1); Protein, Total 7.8 g/dL (6.4-8.2)
[2021-02-27] MEDS ORDERED: MORPHINE 4 MG/ML SYR ONE ×2 (20:37→22:16)
[2021-02-27] MEDS ORDERED: ONDANSETRON 4 MG/2 ML VIAL ONE (20:37)
--- NOTE | 2021-02-27 21:12 | RAD REPORT ---
EXAM DESCRIPTION: CTAbdomen Pelvis W Contrast - 02/27/2021 9:04 pm CLINICAL HISTORY: Abdominal pain. ABD PAIN COMPARISON: Abdomen Pelvis W Contrast dated 01/03/2019 TECHNIQUE: Biphasic CT imaging of the abdomen and pelvis was performed with 100 ml non-ionic IV cont rast. All CT scans are performed using dose optimization technique as appropriate and may include automated exposure control or mA/KV adjustment according to patient size. FINDINGS: The lung bases are clear. The liver, spleen, pancreas, adrenal glands and kidneys are within normal limits. No bowel obstruction, free air, free fluid or abscess. Significant retained stool is seen throughout the colon. Short segment of narrowing is seen in the sigmoid colon (image 85/116). The appendix is no rmal. No evidence of significant lymphadenopathy. No suspicious bony findings. IMPRESSION: No acute intra-abdominal or pelvic finding. Moderate fecal retention is noted. Focal narrowing of the sigmoid colon seen (85/116). Recommend colonoscopy followup if not recently pe rformed.
--- NOTE | 2021-02-27 23:13 | ER ---
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 HX of Ulcerative Colitis. Denies chest pain, denies neck pain, denies arm pain. BP 150/96, HR 75, 98% on RA. Coronavirus screen: Client denies travel out of the [place] in the last 14 days. At this time, the client does not indicate any symptoms associated with coronavirus-19. Ebola Screen: Patient negative for fever greater than or equal to 101.5 degrees Fahrenheit, and additional compatible Ebola Virus Disease symptoms Patient denies exposure to infectious person. Patient denies travel to an Ebola-affected area in the 21 days before illness onset. No symptoms or risks identified at this time. Initial Sepsis Screen: Does the patient meet any 2 criteria? No. Patient's initial sepsis screen is negative. Does the patient have a suspected source of infection? No. Patient's initial sepsis screen is negative. Risk Assessment: Do you want to hurt yourself or someone else? Patient reports no desire to harm self or others. Onset of symptoms was February 27, 2021. 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 Flu vaccine is not up to date. - Social history:: Smoking status: Patient reports the use of cigarette tobacco products, smokes one pack cigarettes per day. Screenin:30 Abuse screen: Denies threats or abuse. Denies injuries from another. Nutritional ca1 screening: No deficits noted. Tuberculosis screening: No symptoms or risk factors identified. Fall Risk IV access (20 points). Assessment: 19:30 General: Appears in no apparent distress. uncomfortable, slender, Behavior is calm, ca1 cooperative, appropriate for age. Pain: Complains of pain in right lower quadrant and left lower quadrant Pain radiates to low back area Quality of pain is described as crampy, Pain began 1 hour ago. Is intermittent. Neuro: Level of Consciousness is awake, alert, obeys commands, Oriented to person, place, time, situation. Cardiovascular: Heart tones S1 S2 present Capillary refill < 3 seconds Patient's skin is warm and dry. Respiratory: Airway is patent Respiratory effort is even, unlabored, Respiratory pattern is regular, symmetrical, Breath sounds are clear bilaterally. GI: Abdomen is round non-distended, obese, Bowel sounds present X 4 quads. Abd is soft X 4 quads Abdomen is tender to palpation in right lower quadrant and left lower quadrant. : No signs and/or symptoms were reported regarding the genitourinary system. EENT: No signs and/or symptoms were reported regarding the EENT system. Derm: Skin is intact, is healthy with good turgor, Skin is pink, warm \T\ dry. Musculoskeletal: Circulation, motion, and sensation intact. Capillary refill < 3 seconds. 20:30 Reassessment: Patient appears in no apparent distress at this time. Patient and/or ca1 family updated on plan of care and expected duration. Pain level reassessed. Patient is alert, oriented x 3, equal unlabored respirations, skin warm/dry/pink. 21:57 Reassessment: Patient appears in no apparent distress at this time. Patient and/or ca1 family updated on plan of care and expected duration. Pain level reassessed. Patient is alert, oriented x 3, equal unlabored respirations, skin warm/dry/pink. 22:56 Reassessment: Patient appears in no apparent distress at this time. Patient and/or ca1 family updated on plan of care and expected duration. Pain level reassessed. Patient is alert, oriented x 3, equal unlabored respirations, skin warm/dry/pink. Patient states feeling better. 23:21 Reassessment: Patient appears in no apparent distress at this time. Patient and/or ca1 family updated on plan of care and expected duration. Pain level reassessed. Patient is alert, oriented x 3, equal unlabored respirations, skin warm/dry/pink. Vital Signs: 19:27 BP 116 / 69; Pulse 72; Resp 18 S; Temp 98.5(O); Pulse Ox 100% on R/A; Weight 122.47 kg ca1 (R); Height 6 ft. 2 in. (187.96 cm) (R); Pain 10/10; 20:30 BP 116 / 66; Pulse 77; Resp 15 S; Pulse Ox 100% on R/A; ca1 21:57 BP 111 / 59; Pulse 76; Resp 18 S; Pulse Ox 100% on R/A; ca1 22:56 BP 122 / 80; Pulse 71; Resp 16 S; Pulse Ox 100% on R/A; ca1 23:21 BP 110 / 64; Pulse 64; Resp 15 S; Pulse Ox 100% on R/A; ca1 19:27 Body Mass Index 34.67 (122.47 kg, 187.96 cm) ca1 ED Course: 19:26 Patient arrived in ED. ca1 19:29 Triage completed. ca1 19:29 Arm band placed on right wrist. ca1 19:30 Patient has correct armband on for positive identification. Placed in gown. Bed in low ca1 position. Call light in reach. Side rails up X2. Pulse ox on. NIBP on. Warm blanket given. 19:30 No provider procedures requiring assistance completed. Maintain EMS IV. Dressing ca1 intact. Good blood return noted. Site clean \T\ dry. Gauge \T\ site: 20 G RFA. 19:31 Alverto Duggan PA is PHCP. [facility] 19:31 Trent Alvarado MD is Attending Physician. [facility] 19:32 Monalisa Martines, DAILY is Primary Nurse. ca1 19:52 Initial lab(s) drawn, by me, sent to lab. ca1 21:04 CT Abd/Pelvis - IV Contrast Only In Process Unspecified. EDMS 23:21 IV discontinued, intact, bleeding controlled, No redness/swelling at site. Pressure ca1 dressing applied. Administered Medications: 20:17 Drug: Zofran (Ondansetron) 4 mg Route: IVP; Site: right forearm; ca1 21:56 Follow up: Response: No adverse reaction; Nausea is decreased ca1 20:20 Drug: morphine 4 mg {Note: rass 0.} Route: IVP; Site: right forearm; ca1 21:56 Follow up: Response: No adverse reaction; Pain is unchanged, physician notified ca1 21:56 Drug: morphine 4 mg {Note: rass 0.} Route: IVP; Site: right forearm; ca1 22:57 Follow up: Response: No adverse reaction; Pain is decreased ca1 Outcome: 23:13 Discharge ordered by MD. laguna 23:21 Discharged to home ambulatory, with significant other. ca1 23:21 Condition: stable 23:21 Discharge instructions given to patient, Instructed on discharge instructions, follow up and referral plans. medication usage, Demonstrated understanding of instructions, follow-up care, medications, Prescriptions given X 2. 23:22 Patient left the ED. ca1 Signatures: Dispatcher [employer] EDMS Alverto Duggan PA PA jmm Acob, Cheryl, RN RN ca1
--- NOTE | 2021-02-27 23:14 | EDPHYS ---
Physician Documentation [facility] Name: Vanna Swan Age: 51 yrs Sex: Female : 1970 Arrival Date: 02/27/2021 Time: 19:26 Bed 17 Private MD: ED Physician Trent Alvarado HPI: 02/27 19:31 This 51 yrs old Black Female presents to ER via EMS with complaints of Abdominal Pain. jmm 19:31 The patient presents with abdominal pain. Onset: The symptoms/episode began/occurred jmm acutely, today. The symptoms radiate to The symptoms are described as achy. Modifying factors: The symptoms are alleviated by nothing, the symptoms are aggravated by nothing. This is a 51 year old female with a history of htn that presents to the ED with complaints of acute onset abdominal pain. Denies vomiting, diarrhea, fever. . 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 Flu vaccine is not up to date. - Social history:: Smoking status: Patient reports the use of cigarette tobacco products, smokes one pack cigarettes per day. ROS: 19:31 Constitutional: Negative for fever, chills, and weight loss, Cardiovascular: Negative jmm for chest pain, palpitations, and edema, Respiratory: Negative for shortness of breath, cough, wheezing, and pleuritic chest pain. 19:31 Abdomen/GI: Positive for abdominal pain. 19:31 All other systems are negative. Exam: 19:31 Constitutional: This is a well developed, well nourished patient who is awake, alert, jmm and in no acute distress. Head/Face: atraumatic. Eyes: EOMI, no conjunctival erythema appreciated ENT: Moist Mucus Membranes Neck: Trachea midline, Supple Chest/axilla: Normal chest wall appearance and motion. Cardiovascular: Regular rate and rhythm. No edema appreciated Respiratory: Normal respirations, no respiratory distress appreciated 19:31 Back: Normal ROM Skin: General appearance color normal MS/ Extremity: Moves all extremities, no obvious deformities appreciated, no edema noted to the lower extremities Neuro: Awake and alert, normal gait Psych: Behavior is normal, Mood is normal, Patient is cooperative and pleasant 19:31 Abdomen/GI: Inspection: abdomen appears normal, Bowel sounds: normal, Palpation: soft, in the left upper quadrant. Vital Signs: 19:27 BP 116 / 69; Pulse 72; Resp 18 S; Temp 98.5(O); Pulse Ox 100% on R/A; Weight 122.47 kg ca1 (R); Height 6 ft. 2 in. (187.96 cm) (R); Pain 10/10; 20:30 BP 116 / 66; Pulse 77; Resp 15 S; Pulse Ox 100% on R/A; ca1 21:57 BP 111 / 59; Pulse 76; Resp 18 S; Pulse Ox 100% on R/A; ca1 22:56 BP 122 / 80; Pulse 71; Resp 16 S; Pulse Ox 100% on R/A; ca1 23:21 BP 110 / 64; Pulse 64; Resp 15 S; Pulse Ox 100% on R/A; ca1 19:27 Body Mass Index 34.67 (122.47 kg, 187.96 cm) ca1 MDM: 20:12 Patient medically screened. [facility] 23:09 Data reviewed: vital signs, nurses notes. Counseling: I had a detailed discussion with luz elena the patient and/or guardian regarding: the historical points, exam findings, and any diagnostic results supporting the discharge/admit diagnosis, lab results, radiology results, the need for outpatient follow up, to return to the emergency department if symptoms worsen or persist or if there are any questions or concerns that arise at home. ED course: Patient is alert and non toxic in appearance in the ED. CT negative for an acute process. Advised to follow up with GI for colonoscopy. Patient given strict return precautions. Patient understood and agrees with the plan of care. . 02/27 19:31 Order name: Basic Metabolic Panel; Complete Time: 20:21 [facility] 02/27 19:31 Order name: CBC with Diff; Complete Time: 20:21 [facility] 02/27 19:31 Order name: Hepatic Function; Complete Time: 20:21 [facility] 02/27 19:31 Order name: Lipase; Complete Time: 20:21 [facility] 02/27 20:42 Order name: CT Abd/Pelvis - IV Contrast Only; Complete Time: 21:13 [facility] 02/27 19:31 Order name: IV Saline Lock; Complete Time: 19:52 [facility] 02/27 19:31 Order name: Labs collected and sent; Complete Time: :52 [facility] Administered Medications: 20:17 Drug: Zofran (Ondansetron) 4 mg Route: IVP; Site: right forearm; ca1 21:56 Follow up: Response: No adverse reaction; Nausea is decreased ca1 20:20 Drug: morphine 4 mg {Note: rass 0.} Route: IVP; Site: right forearm; ca1 21:56 Follow up: Response: No adverse reaction; Pain is unchanged, physician notified ca1 21:56 Drug: morphine 4 mg {Note: rass 0.} Route: IVP; Site: right forearm; ca1 22:57 Follow up: Response: No adverse reaction; Pain is decreased ca1 Disposition: 02/28 00:35 Co-signature as Attending Physician, Trent Alvarado MD. shelbi Disposition Summary: 02/27/21 23:13 Discharge Ordered Location: Home [facility] Condition: Stable [facility] Diagnosis - Abdominal pain, unspecified [facility] Followup: [facility] - With: Private Physician - When: 2 - 3 days - Reason: Recheck today's complaints, Continuance of care, Re-evaluation by your physician Discharge Instructions: - Discharge Summary Sheet [facility] - Abdominal Pain, Adult [facility] Forms: - Medication Reconciliation Form [facility] - Thank You Letter [facility] - Antibiotic Education [facility] - Prescription Opioid Use [facility] - Work release form ca1 Prescriptions: - Pepcid 20 mg Oral Tablet - take 1 tablet by ORAL route every 12 hours for 10 days; 20 tablet; Refills: 0, [facility] Product Selection Permitted - dicyclomine 20 mg Oral Tablet - take 1 tablet by ORAL route 4 times per day; 40 tablet; Refills: 0, Product [facility] Selection Permitted Signatures: Dispatcher [employer] Trent Hare MD MD pkl Mickail, Joel, PA PA jmm Acob, Cheryl, RN RN ca1
[2021-02-27 23:33] VITALS: TEMP 98.5; O2SAT 100
[2021-02-27 23:40] VITALS: BP 110/64
== END 2021-02-27 23:22 | disposition home or self-care (01) ==
LOC: ER 19:19
DX: R10.12 Left upper quadrant pain (principal); I10 Essential (primary) hypertension; F17.210 Nicotine dependence, cigarettes, uncomplicated
CPT/HCPCS: 85025; 80048; 36415; 80076; 83690; 74177; 96375; 96374; 99284; Q9967; J2405

== ENCOUNTER 2021-04-18 13:25 | Emergency (ER) | payer OTHER ==
[2021-04-18 17:44] LABS: Urine Blood Negative (Negative); Urine Glucose Trace (Negative); Urine Protein Negative (Negative); Urine pH 5.5 (5.0-7.0)
[2021-04-18] MEDS ORDERED: ONDANSETRON 4 MG/2 ML VIAL ONE (17:53)
[2021-04-18] MEDS ORDERED: MORPHINE 4 MG/ML SYR ONE ×2 (17:53→19:50)
[2021-04-18 18:10] LABS: Absolute Lymphocytes (CBC) 1.5 K/uL (0.7-4.9); Basophils % 1.1 % (0-1.3); Hematocrit 39.5 % (36.0-45.0); Lymphocytes % 22.2 % (15.3-44.8); MPV 7.1 fL (7.6-11.3); RBC Red Blood Cell Count 4.59 M/uL (3.86-4.86)
--- NOTE | 2021-04-18 18:29 | RAD REPORT ---
EXAM DESCRIPTION: CT - Stone Protocol - 04/18/2021 5:50 pm CLINICAL HISTORY: Flank pain. left mid back pain COMPARISON: Abdomen Pelvis W Contrast dated 02/27/2021 TECHNIQUE: Axial images were obtained without oral or IV contrast. Lack of contrast limits solid org an and vascular assessment. The [id number] spans the entirety of the system partially obscuring uppermost abdomen and lung bases. Coronal reformatted images were obtained and reviewed. All CT scans are performed using dose optimization technique as appropriate and may include automated exposure control or mA/KV adjustment according to patient size. FINDINGS: The lower lung holt are clear. Imaged portions of the liver and spleen show no suspicious findings on non-contrast imaging.Trace flu id is noted in gallbladder fossa. The pancreas and adrenal glands are normal. No pathologic lymphaden opathy in the abdomen or pelvis. No urinary tract stones or obstructive uropathy. No bowel obstruction, free air, free fluid or abscess. Normal appendix noted.Moderate fecal retention throughout the colon. No significant bony abnormality. IMPRESSION: Moderate fecal retention is seen. Mild fluid in the gallbladder fossa seen, followup gallbladder ultrasound could be performed for furt her evaluation clinically indicated.
[2021-04-18 18:32] LABS: Albumin 3.5 g/dL (3.4-5.0); Bilirubin Total 3.4 mg/dL (0.2-1.0); Potassium 3.3 mmol/L (3.5-5.1); Protein, Total 7.9 g/dL (6.4-8.2)
[2021-04-18] MEDS ORDERED: CEFTRIAXONE/SWI 1gm 2 GM/20 ML SYR ONE (19:15)
--- NOTE | 2021-04-18 19:18 | RAD REPORT ---
EXAM DESCRIPTION: US - Abdomen Exam Limited - 04/18/2021 7:05 pm CLINICAL HISTORY: back pain Right upper quadrant abdominal pain COMPARISON: No comparisons FINDINGS: The gallbladder demonstrates contracted gallbladder containing stones. No pericholecystic fluid or gallbladder wall thickening. The common bile duct is normal measuring 4 mm. The liver demonstrates no findings of intrahepatic biliary dilatation. IMPRESSION: Cholelithiasis. Gallbladder contraction presumably from recent meal.
--- NOTE | 2021-04-18 19:40 | ER ---
Nurse's Notes [facility] Name: Vanna Swan Age: 51 yrs Sex: Female : 1970 Arrival Date: 04/18/2021 Time: 13:46 Bed 30 Private MD: Diagnosis: Calculus of gallbladder without cholecystitis Presentation: 04/18 13:46 Chief complaint: Patient states: Back and abd pain for a couple days. CP started ll1 started today. + nasal congestion. No fever. Coronavirus screen: Vaccine status: Patient reports being unvaccinated. Client denies travel out of the [place] in the last 14 days. congestion, cough unrelated to allergies. Coronavirus screen: fatigue, headache, muscle pain, Client presents with at least one sign or symptom that may indicate coronavirus-19. Standard/surgical mask placed on the client. Ebola Screen: Patient denies travel to an Ebola-affected area in the 21 days before illness onset. Initial Sepsis Screen: Does the patient meet any 2 criteria? No. Patient's initial sepsis screen is negative. Does the patient have a suspected source of infection? No. Patient's initial sepsis screen is negative. Risk Assessment: Do you want to hurt yourself or someone else? Patient reports no desire to harm self or others. Onset of symptoms was April 16, 2021. 13:46 Method Of Arrival: EMS: [facility] 13:46 Acuity: AILEEN 3 ll1 Historical: - Allergies: 13:49 No Known Allergies; ll1 - PMHx: 13:49 Colitis; Hypertension; Irregular heart rate; Ulcers; ll1 - PSHx: 13:49 uterine ablation; ll1 - Immunization history:: Client reports having NOT received the Covid vaccine. Flu vaccine status is unknown. - Social history:: Smoking status: Patient reports the use of cigarette tobacco products, smokes one-half pack cigarettes per day. Screenin:14 Abuse screen: Denies threats or abuse. Denies injuries from another. Nutritional ld1 screening: No deficits noted. Tuberculosis screening: No symptoms or risk factors identified. Fall Risk None identified. Assessment: 17:14 General: Appears in no apparent distress. uncomfortable, Behavior is calm, cooperative, ld1 appropriate for age. Pain: Complains of pain in abdomen Pain does not radiate. Pain currently is 9 out of 10 on a pain scale. Quality of pain is described as throbbing, Pain began 2-3 days ago. Is continuous. Neuro: Level of Consciousness is awake, alert, obeys commands, Oriented to person, place, time, situation, Appropriate for age. Cardiovascular: Capillary refill < 3 seconds Patient's skin is warm and dry. Respiratory: Airway is patent Respiratory effort is even, unlabored, Respiratory pattern is regular, symmetrical. GI: Abdomen is round non-distended, Bowel sounds present X 4 quads. Abd is soft Abdomen is tender to palpation in right lower quadrant and left lower quadrant Reports nausea, vomiting. : No signs and/or symptoms were reported regarding the genitourinary system. EENT: No signs and/or symptoms were reported regarding the EENT system. Derm: No signs and/or symptoms reported regarding the dermatologic system. Musculoskeletal: No signs and/or symptoms reported regarding the musculoskeletal system. 18:08 Reassessment: Patient appears in no apparent distress at this time. No changes from ld1 previously documented assessment. Patient and/or family updated on plan of care and expected duration. Pain level reassessed. Patient is alert, oriented x 3, equal unlabored respirations, skin warm/dry/pink. 19:29 Reassessment: Patient appears in no apparent distress at this time. No changes from ld1 previously documented assessment. Patient and/or family updated on plan of care and expected duration. Pain level reassessed. Patient is alert, oriented x 3, equal unlabored respirations, skin warm/dry/pink. Vital Signs: 13:46 BP 126 / 92; Pulse 80; Resp 18; Temp 97.8; Pulse Ox 100% ; Weight 122.47 kg; Height 6 ll1 ft. 2 in. (187.96 cm); Pain 10/10; 17:14 BP 140 / 83; Pulse 72; Resp 18; Pulse Ox 100% on R/A; Pain 9/10; ld1 18:08 BP 118 / 70; Pulse 69; Resp 18; Pulse Ox 98% on R/A; ld1 19:29 BP 134 / 80; Pulse 75; Resp 18; Pulse Ox 100% on R/A; ld1 13:46 Body Mass Index 34.67 (122.47 kg, 187.96 cm) ll1 ED Course: 13:46 Patient arrived in ED. ll1 13:49 Triage completed. ll1 13:49 Arm band placed on. EKG completed in triage. Results shown to MD. ll1 17:06 [facility] Millan [facility]. cp 17:06 aDvis Anthony MD is Attending Physician. cp 17:14 Patient has correct armband on for positive identification. Bed in low position. Call ld1 light in reach. Side rails up X2. night monitor on. Pulse ox on. NIBP on. Door closed. Noise minimized. Warm blanket given. 17:14 No provider procedures requiring assistance completed. ld1 17:44 Urine Microscopic Only Sent. ld1 17:50 CT Stone Protocol In Process Unspecified. EDMS 19:05 US Abdomen Limited: RUQ/epigastric In Process Unspecified. EDMS 23:31 Patient transferred, IV remains in place. ld1 Administered Medications: 17:44 Drug: morphine 4 mg Route: IVP; Site: right antecubital; ld1 17:44 Follow up: Response: No adverse reaction; Marked relief of symptoms ld1 17:44 Drug: Zofran (Ondansetron) 4 mg Route: IVP; Site: right antecubital; ld1 17:44 Follow up: Response: No adverse reaction ld1 17:44 Follow up: Response: No adverse reaction ld1 19:27 Drug: Rocephin - (cefTRIAXone) 2 grams Route: IVPB; Infused Over: 30 mins; Site: right ld1 antecubital; 19:28 Follow up: Response: No adverse reaction; IV Status: Completed infusion ld1 21:35 Drug: Potassium Chloride 20 mEq Route: IV; Rate: calculated rate; Site: right ld1 antecubital; 21:36 Drug: NS 0.9% 500 ml Route: IV; Rate: bolus; Site: right antecubital; ld1 21:36 Drug: NS 0.9% 1000 ml Route: IV; Rate: 75 ml/hr; Site: right antecubital; ld1 21:37 Drug: Dilaudid (HYDROmorphone) 1 mg Route: IVP; Site: right antecubital; ld1 Outcome: 19:40 ER care complete, transfer ordered by . cp 23:30 Transferred by ground EMS to [facility]. ld1 23:30 Condition: stable 23:30 Discharge instructions given to patient, Instructed on the need for transfer, Demonstrated understanding of instructions, follow-up care, medications. 23:31 Patient left the ED. ld1 Signatures: Dispatcher [employer] EDMS Davis Millan PA PA cp Lewis, Lynsay RN RN ll1 Radha Gorman RN RN ld1
--- NOTE | 2021-04-18 19:40 | EDPHYS ---
Physician Documentation [facility] Name: Vanna Swan Age: 51 yrs Sex: Female : 1970 Arrival Date: 04/18/2021 Time: 13:46 Bed 30 Private MD: ED Physician Davis Anthony HPI: 04/18 17:25 This 51 yrs old Black Female presents to ER via EMS with complaints of Abd Pain > 50 cp y/o. 17:25 The patient complains of pain in the left mid back. The pain radiates to the left side cp left side of abdomen. 17:25 Onset: The symptoms/episode began/occurred this morning. Associated signs and symptoms: cp Pertinent positives: nausea, Pertinent negatives: diarrhea, dysuria, fever, pain radiating to the lower extremities, vomiting. Severity of pain: in the emergency department the pain is unchanged despite home interventions. Historical: - Allergies: 13:49 No Known Allergies; ll1 - PMHx: 13:49 Colitis; Hypertension; Irregular heart rate; Ulcers; ll1 - PSHx: 13:49 uterine ablation; ll1 - Immunization history:: Client reports having NOT received the Covid vaccine. Flu vaccine status is unknown. - Social history:: Smoking status: Patient reports the use of cigarette tobacco products, smokes one-half pack cigarettes per day. ROS: 17:30 Back: Positive for pain at rest, pain with movement, of the left mid back. cp 17:30 Eyes: Negative for injury, pain, redness, and discharge. cp 17:30 Constitutional: Negative for body aches, chills, fever, poor PO intake. 17:30 Abdomen/GI: Positive for abdominal pain, nausea, Negative for vomiting, diarrhea, constipation, black/tarry stool, rectal bleeding. 17:30 Cardiovascular: Negative for chest pain, palpitations. cp 17:30 Respiratory: Negative for cough, shortness of breath, wheezing. cp 17:30 Neuro: Negative for altered mental status, dizziness, headache, numbness, weakness. 17:30 All other systems are negative. Exam: 17:35 Constitutional: The patient appears in no acute distress, alert, awake, cp non-diaphoretic, non-toxic, well developed, well nourished, obese. 17:35 Head/Face: Normocephalic, atraumatic. cp 17:35 Eyes: Periorbital structures: appear normal, Conjunctiva: normal, no exudate, no injection, Sclera: no appreciated abnormality, Lids and lashes: appear normal, bilaterally. 17:35 ENT: External ear(s): are unremarkable, Nose: is normal, Mouth: Lips: moist, Oral mucosa: moist, Posterior pharynx: Airway: no evidence of obstruction, patent. 17:35 Chest/axilla: Inspection: normal, Palpation: is normal, no crepitus, no tenderness. 17:35 Cardiovascular: Rate: normal, Rhythm: regular. 17:35 Respiratory: the patient does not display signs of respiratory distress, Respirations: normal, no use of accessory muscles, no retractions, labored breathing, is not present, Breath sounds: are clear throughout, no decreased breath sounds, no stridor, no wheezing. 17:35 Abdomen/GI: Inspection: abdomen appears normal, Bowel sounds: active, all quadrants, Palpation: soft, in all quadrants, moderate abdominal tenderness, in the posterior aspect of left lateral abdomen, anterior aspect of left lateral abdomen, left upper quadrant and left lower quadrant. 17:35 Back: pain, that is moderate, of the left mid back, vertebral tenderness, is not appreciated, Straight leg raises: of both lower extremities does not illicit pain. 17:35 Skin: no rash present. Vital Signs: 13:46 BP 126 / 92; Pulse 80; Resp 18; Temp 97.8; Pulse Ox 100% ; Weight 122.47 kg; Height 6 ll1 ft. 2 in. (187.96 cm); Pain 10/10; 17:14 BP 140 / 83; Pulse 72; Resp 18; Pulse Ox 100% on R/A; Pain 9/10; ld1 18:08 BP 118 / 70; Pulse 69; Resp 18; Pulse Ox 98% on R/A; ld1 19:29 BP 134 / 80; Pulse 75; Resp 18; Pulse Ox 100% on R/A; ld1 13:46 Body Mass Index 34.67 (122.47 kg, 187.96 cm) ll1 MDM: 17:11 Patient medically screened. cp 19:32 Data reviewed: vital signs, nurses notes, lab test result(s), radiologic studies, CT cp scan, ultrasound. Physician consultation: Mariusz Rosa MD was called at 19:32, was contacted at 19:32, regarding patient's condition, after a discussion of the case, a recommendation for transfer for higher level of care is made, due to lack of GI services. 19:45 Physician consultation: was contacted at 19:40, regarding regarding transfer, to [facility]. patient's condition, accepting physician will be DR Browning, hospitalist, for continued care. 20:05 Physician consultation: was contacted at 20:00, regarding regarding transfer, to [facility]. consult, patient's condition, spoke with DR Callahan, GI physician, will consult on patient and requests transfer to hospitalist services. 04/18 17:18 Order name: Basic Metabolic Panel; Complete Time: 18:36 04/18 19:16 Interpretation: Normal except: K 3.3; GFR 58. 04/18 17:18 Order name: CBC with Diff; Complete Time: 18:12 04/18 18:12 Interpretation: Normal except: MPV 7.1. 04/18 17:18 Order name: Hepatic Function; Complete Time: 18:36 04/18 17:18 Order name: Lipase; Complete Time: 18:36 04/18 17:18 Order name: Urine Microscopic Only; Complete Time: 19:45 04/18 19:46 Interpretation: Normal except: UBACT 20-50; SQEPI 5-10. 04/18 17:43 Order name: Urine Dipstick-Ancillary; Complete Time: 18:12 [facility] 04/18 17:18 Order name: CT Stone Protocol; Complete Time: 18:36 04/18 18:38 Order name: US Abdomen Limited: RUQ/epigastric; Complete Time: 19:25 04/18 18:39 Order name: Lactate 04/18 18:39 Order name: Procalcitonin; Complete Time: 20:34 04/18 18:39 Order name: Blood Culture Adult (2) 04/18 19:43 Order name: Urine Culture EDNM 04/18 21:19 Order name: SARS-COV-2 RT PCR EDNM 04/18 13:50 Order name: EKG; Complete Time: 13:50 ll1 04/18 17:18 Order name: IV Saline Lock; Complete Time: 17:44 04/18 17:18 Order name: Labs collected and sent; Complete Time: 17:44 cp 04/18 17:18 Order name: Urine Dipstick-Ancillary (obtain specimen); Complete Time: 17:44 cp Administered Medications: 17:44 Drug: morphine 4 mg Route: IVP; Site: right antecubital; ld1 17:44 Follow up: Response: No adverse reaction; Marked relief of symptoms ld1 17:44 Drug: Zofran (Ondansetron) 4 mg Route: IVP; Site: right antecubital; ld1 17:44 Follow up: Response: No adverse reaction ld1 17:44 Follow up: Response: No adverse reaction ld1 19:27 Drug: Rocephin - (cefTRIAXone) 2 grams Route: IVPB; Infused Over: 30 mins; Site: right ld1 antecubital; 19:28 Follow up: Response: No adverse reaction; IV Status: Completed infusion ld1 21:35 Drug: Potassium Chloride 20 mEq Route: IV; Rate: calculated rate; Site: right ld1 antecubital; 21:36 Drug: NS 0.9% 500 ml Route: IV; Rate: bolus; Site: right antecubital; ld1 21:36 Drug: NS 0.9% 1000 ml Route: IV; Rate: 75 ml/hr; Site: right antecubital; ld1 21:37 Drug: Dilaudid (HYDROmorphone) 1 mg Route: IVP; Site: right antecubital; ld1 Disposition: 04/19 08:49 Co-signature as Attending Physician, Davis Anthony MD I agree with the assessment and giselle plan of care. Disposition Summary: 04/18/21 19:40 Transfer Ordered Transfer Location: [facility] cp Reason: Higher level of care cp Condition: Stable cp Problem: new cp Symptoms: have improved cp Accepting Physician: DR Lilian Browning(04/18/21 23:31) ld1 Diagnosis - Calculus of gallbladder without cholecystitis cp Forms: - Medication Reconciliation Form cp - SBAR form cp Signatures: Dispatcher [employer] Davis Marcelino MD MD cha Page, Corey, PA PA cp Philipp Wei RN RN ll1 Radha Gorman RN RN ld1 Corrections: (The following items were deleted from the chart) 04/18 19:57 19:46 CORONAVIRUS+MR.LAB.BRZ ordered. EDMS EDMS 21:02 19:40 Doctor garza cp 23:31 21:02 DR Lilian Browning cp ld1
[2021-04-18 19:42] LABS: Urine Amorphous Sediment 1+ /HPF (NONE SEEN); Urine Bacteria 20-50 /HPF (<20); Urine Mucus 1+ /HPF (NONE SEEN); Urine RBC <5 /HPF (NONE SEEN)
[2021-04-18] MEDS ORDERED: NA CHLORIDE 0.9% 1,000 ML ONE (21:41)
[2021-04-18] MEDS ORDERED: KCL 20 MEQ/100 mL IVPB 20 MEQ/100 ML BAG IV ONE (21:41)
[2021-04-18] MEDS ORDERED: NA CHLORIDE 0.9% 500 ML ONE (21:41)
[2021-04-18] MEDS ORDERED: HYDROMORPHONE HCL 1 MG/ML INJ ONE (21:57)
[2021-04-19] MEDS ORDERED: HYDROMORPHONE HCL 1 MG/ML INJ ONE (00:11)
[2021-04-19 00:32] VITALS: TEMP 97.8
[2021-04-19 00:35] VITALS: BP 134/80; O2SAT 100
--- NOTE | 2021-04-19 10:57 | EKG ---
Test Date: 2021-04-18 Test Time: 13:53:04 Unit Director: EDGAR MEASUREMENT RESULTS: Intervals: Rate: 75 IL: 174 QRSD: 86 QT: 374 QTc: 417 [place]: P: 45 IL: 174 QRS: 51 T: 35 INTERPRETIVE STATEMENTS: Normal sinus rhythm Normal ECG Compared to ECG 07/07/2013 11:13:07 No significant changes Electronically Signed On 04-19-21 10:54:12 CDT by Deacon Duckworth
== END 2021-04-18 23:31 | disposition short-term general hospital (02) ==
LOC: ER 13:25
DX: K80.20 Calculus of gallbladder without cholecystitis without obstruction (principal); I10 Essential (primary) hypertension; F17.210 Nicotine dependence, cigarettes, uncomplicated; Z20.822 Contact with and (suspected) exposure to COVID-19
CPT/HCPCS: 93005; 87040 ×2; 87088; 85025; 87086; 80048; 36415; 80076; 83605; 83690; 84145; 76377; 74176; 76705; 96375; 96374; 99285; U0003; J3480; J1170; J0696; J7040; J7030; J2405; 81003; 81015

== ENCOUNTER 2021-08-19 09:09 | Emergency (ER) | payer OTHER ==
--- OUTSIDE RECORDS SUMMARY | 2021-08-19 09:13 | XMS REPORT | Continuity of Care Document ---
:1970 Author Organization [facility] t Address [address] [place] [address] Care Team Providers Name Role Phone LYSSA ABER JR Primary Care Physician Unavailable DANY TEJADA Attending Clinician Unavailable ASIYA Attending Clinician Unavailable DANY TEJADA Admitting Clinician Unavailable Payers Payer Name Policy Type Policy Number Effective Date Expiration Date S ource UNITED MEDICARE [id number] 2020 O 00:00:00 [facility] COMM STAR [id number] 2019 PLAN 00:00:00 Problems This patient has no known problems. Allergies, Adverse Reactions, Alerts Allergy Allergy Status Severity Reaction(s) Onset Inactive Treating Comm ents Source Name Type Date Date Clinician NO KNOWN Allergy Active [facility] Medications This patient has no known medications. Vital Signs Vital Name Observation Time Observation Value Comments Source HEIGHT 2021-04-19 01:39:00 188 cm WEIGHT 2021-04-19 01:39:00 125.374 kg HEIGHT 2021-04-19 01:39:00 188 cm WEIGHT 2021-04-19 01:39:00 125.374 kg Procedures This patient has no known procedures. Encounters Start End Encounter Admission Attending Care Care Encounter Source Date/Time Date/Time Type Type Clinicians Facility Department ID 2021-05-22 Inpatient ER MARISEL TEJADA G[facility] [id number] [facility] 11:27:13 LAMIN 2021-04-29 2021-04-29 Outpatient EL MARISEL BRADEN [facility] [id number] [facility] 00:00:00 00:00:00 VALE 2021-04-19 2021-04-19 Outpatient [facility] [id number] [facility] 00:40:00 23:59:00 [facility] Results Test Description Test Time Test Comments Results Result [facility] e Comments TISSUE EXAM 2021-04-27 Surgical Pathology 13:15:38 Report Case: [id number] Authorizing Provider: Yamilex Cota MD Collected: 04/22/2021 10:18 AM Ordering Location: [facility] PERIOPERATIVE Received: 04/22/2021 11:00 AM SERVICES Pathologist: Amaya Peraza MD Specimen: Gallbladder GALLBLADDER, CHOLECYSTECTOMY:- CHRONIC CHOLECYSTITIS- CHOLELITHIASIS- CHOLESTEROLOSIS Signing Pathologist Direct Phone Line: [phone] ally signed by Amaya Peraza MD on 04/27/2021 at 1:15 [id number] asisGallbladderPerform ed.[facility], Department of Pathology, [address] [place] [address], [facility], Department of Pathology, [address] [place] [address], [facility], Department of Pathology, [address] [place] [address], Imaudvfx fresh labeled the patient's name, accession number and "gallbladder" is a 8.3 x 3.3 x 2.0 cm intact gallbladder with a 0.2 cm in length by 0.2 cm in diameter attached cystic duct. The serosa is purple-pink, smooth and hyperemic. The specimen is opened to reveal approximately 4 mL of yellow bile and a 1.5 x 0.8 x 0.5 cm aggregate of yellow, bosselated calculi. There are calculi lodged within the cystic duct. The mucosa is boudreaux-pink, focally hemorrhagic, trabeculated and displays a moderate amount of yellow stippling. The wall measures up to 0.3 cm thick and displays multiple embedded black calculi. Engineering Mechanic sections are submitted in A1-A2, with the inked cystic duct margin in A1.MARCO Slaughter, HT (ASCP) COMPREHENSIVE METABOLIC PANEL 2021-04-24 07:46:37 Test Item Value Reference Range Interpretation Comme nts TOTAL PROTEIN (BEAKER) 7.5 gm/dL 6.0-8.3 Speci men slightly (test code = 770) hemolyzed ALBUMIN (BEAKER) (test code 3.5 g/dL 3.5-5.0 Specimen slightly = 1145) hemolyzed ALKALINE PHOSPHATASE 94 U/L 40-150 (BEAKER) (test code = 346) BILIRUBIN TOTAL (BEAKER) 1.6 mg/dL 0.2-1.2 H Spe cimen slightly (test code = 377) hemolyzed SODIUM (BEAKER) (test code 137 meq/L 136-145 = 381) POTASSIUM (BEAKER) (test 3.9 meq/L 3.5-5.1 Spe cimen slightly code = 379) hemolyzed CHLORIDE (BEAKER) (test 103 meq/L 98-107 code = 382) CO2 (BEAKER) (test code = 22 meq/L 22-29 355) BLOOD UREA NITROGEN 8 mg/dL 7-21 (BEAKER) (test code = 354) CREATININE (BEAKER) (test 0.93 mg/dL 0.57-1.25 Sp ecimen slightly code = 358) hemolyzed GLUCOSE RANDOM (BEAKER) 99 mg/dL 70-105 (test code = 652) CALCIUM (BEAKER) (test code 8.6 mg/dL 8.4-10.2 = 697) AST (SGOT) (BEAKER) (test 32 U/L 5-34 Sp ecimen slightly code = 353) hemolyzed ALT (SGPT) (BEAKER) (test 68 U/L 6-55 H Sp ecimen slightly code = 347) hemolyzed EGFR (BEAKER) (test code = 77 mL/min/1.73 sq m ESTIMATED GFR IS NOT 1092) ACCURATE CRE ATININE CLEARANCE IN UT EDICTING GLOMERULAR FILT RATION RATE. ESTIMATED GFR IS NOT APPLICABLE FOR DIALYSIS PATIENTS. Brick Grader GEETA - KIMBER FCBC (HEMOGRAM ONLY)2021-04-24 07:03:46 Test Item Value Reference Range Interpretation Comments WHITE BLOOD CELL COUNT (BEAKER) 13.4 K/ L 3.5-10.5 H (test code = 775) RED BLOOD CELL COUNT (BEAKER) 4.40 M/ L 3.93-5.22 (test code = 761) HEMOGLOBIN (BEAKER) (test code = 12.6 GM/DL 11.2-15.7 410) HEMATOCRIT (BEAKER) (test code = 39.1 % 34.1-44.9 411) MEAN CORPUSCULAR VOLUME (BEAKER) 88.9 fL 79.4-94.8 (test code = 753) MEAN CORPUSCULAR HEMOGLOBIN 28.6 pg 25.6-32.2 (BEAKER) (test code = 751) MEAN CORPUSCULAR HEMOGLOBIN CONC 32.2 GM/DL 32.2-35.5 (BEAKER) (test code = 752) RED CELL DISTRIBUTION WIDTH 13.0 % 11.7-14.4 (BEAKER) (test code = 412) PLATELET COUNT (BEAKER) (test 167 K/CU MM 150-450 code = 756) MEAN PLATELET VOLUME (BEAKER) 9.9 fL 9.4-12.3 (test code = 754) NUCLEATED RED BLOOD CELLS 0 /100 WBC 0-0 (BEAKER) (test code = 413) [id number] 07:25:27 Test Item Value Reference Range Interpretation Comments PHOSPHORUS (BEAKER) (test code = 2.5 mg/dL 2.3-4.7 604) Brick Grader ID - GLYNN [id number] 07:25:26 Test Item Value Reference Range Interpretation Comments MAGNESIUM (BEAKER) (test code = 1.9 mg/dL 1.6-2.6 627) Brick Grader ID - GLYNN MCOMPREHENSIVE METABOLIC [id number] 07:25:25 Test Item Value Reference Range Interpretation Comments TOTAL PROTEIN 7.2 gm/dL 6.0-8.3 (BEAKER) (test code = 770) ALBUMIN (BEAKER) 3.3 g/dL 3.5-5.0 L (test code = 1145) ALKALINE PHOSPHATASE 95 U/L 40-150 (BEAKER) (test code = 346) BILIRUBIN TOTAL 1.6 mg/dL 0.2-1.2 H (BEAKER) (test code = 377) SODIUM (BEAKER) (test 141 meq/L 136-145 code = 381) POTASSIUM (BEAKER) 3.8 meq/L 3.5-5.1 (test code = 379) CHLORIDE (BEAKER) 106 meq/L 98-107 (test code = 382) CO2 (BEAKER) (test 26 meq/L 22-29 code = 355) BLOOD UREA NITROGEN 7 mg/dL 7-21 (BEAKER) (test code = 354) CREATININE (BEAKER) 1.01 mg/dL 0.57-1.25 (test code = 358) GLUCOSE RANDOM 100 mg/dL 70-105 (BEAKER) (test code = 652) CALCIUM (BEAKER) 9.3 mg/dL 8.4-10.2 (test code = 697) AST (SGOT) (BEAKER) 39 U/L 5-34 H (test code = 353) ALT (SGPT) (BEAKER) 91 U/L 6-55 H (test code = 347) EGFR (BEAKER) (test 70 mL/min/1.73 ESTIMA SANTI GFR IS code = 1092) sq m NOT ACCURATE CREATININE CLEARANCE IN PREDICTING GLOMERULAR FILTRATION RATE . ESTIMATED GFR I S NOT APPLICABLE FOR DIALYSIS PATIEN TS. Brick Grader ID - GLYNN MCBC (HEMOGRAM ONLY)2021-04-23 06:17:56 Test Item Value Reference Range Interpretation Comments WHITE BLOOD CELL COUNT (BEAKER) 10.5 K/ L 3.5-10.5 (test code = 775) RED BLOOD CELL COUNT (BEAKER) 4.24 M/ L 3.93-5.22 (test code = 761) HEMOGLOBIN (BEAKER) (test code = 12.1 GM/DL 11.2-15.7 410) HEMATOCRIT (BEAKER) (test code = 36.7 % 34.1-44.9 411) MEAN CORPUSCULAR VOLUME (BEAKER) 86.6 fL 79.4-94.8 (test code = 753) MEAN CORPUSCULAR HEMOGLOBIN 28.5 pg 25.6-32.2 (BEAKER) (test code = 751) MEAN CORPUSCULAR HEMOGLOBIN CONC 33.0 GM/DL 32.2-35.5 (BEAKER) (test code = 752) RED CELL DISTRIBUTION WIDTH 12.6 % 11.7-14.4 (BEAKER) (test code = 412) PLATELET COUNT (BEAKER) (test 227 K/CU MM 150-450 code = 756) MEAN PLATELET VOLUME (BEAKER) 8.6 fL 9.4-12.3 L (test code = 754) NUCLEATED RED BLOOD CELLS 0 /100 WBC 0-0 (BEAKER) (test code = 413) COMPREHENSIVE METABOLIC [id number] 05:27:00 Test Item Value Reference Range Interpretation Comments TOTAL PROTEIN 6.6 gm/dL 6.0-8.3 (BEAKER) (test code = 770) ALBUMIN (BEAKER) 3.3 g/dL 3.5-5.0 L (test code = 1145) ALKALINE PHOSPHATASE 98 U/L 40-150 (BEAKER) (test code = 346) BILIRUBIN TOTAL 1.9 mg/dL 0.2-1.2 H (BEAKER) (test code = 377) SODIUM (BEAKER) (test 141 meq/L 136-145 code = 381) POTASSIUM (BEAKER) 3.4 meq/L 3.5-5.1 L (test code = 379) CHLORIDE (BEAKER) 106 meq/L 98-107 (test code = 382) CO2 (BEAKER) (test 27 meq/L 22-29 code = 355) BLOOD UREA NITROGEN 7 mg/dL 7-21 (BEAKER) (test code = 354) CREATININE (BEAKER) 1.13 mg/dL 0.57-1.25 (test code = 358) GLUCOSE RANDOM 91 mg/dL 70-105 (BEAKER) (test code = 652) CALCIUM (BEAKER) 8.8 mg/dL 8.4-10.2 (test code = 697) AST (SGOT) (BEAKER) 46 U/L 5-34 H (test code = 353) ALT (SGPT) (BEAKER) 108 U/L 6-55 H (test code = 347) EGFR (BEAKER) (test 62 mL/min/1.73 ESTIMA SANTI GFR IS code = 1092) sq m NOT ACCURATE CREATININE CLEARANCE IN PREDICTING GLOMERULAR FILTRATION RATE . ESTIMATED GFR I S NOT APPLICABLE FOR DIALYSIS PATIEN TS. Brick Grader ID - PAZ [id number] 05:27:00 Test Item Value Reference Range Interpretation Comments MAGNESIUM (BEAKER) (test code = 1.9 mg/dL 1.6-2.6 627) Brick Grader ID - PAZ [id number] 05:27:00 Test Item Value Reference Range Interpretation Comments PHOSPHORUS (BEAKER) (test code = 3.3 mg/dL 2.3-4.7 604) Brick Grader ID - PAZ LCBC (HEMOGRAM ONLY)2021-04-22 04:50:00 Test Item Value Reference Range Interpretation Comments WHITE BLOOD CELL COUNT (BEAKER) 5.1 K/ L 3.5-10.5 (test code = 775) RED BLOOD CELL COUNT (BEAKER) 4.13 M/ L 3.93-5.22 (test code = 761) HEMOGLOBIN (BEAKER) (test code = 12.0 GM/DL 11.2-15.7 410) HEMATOCRIT (BEAKER) (test code = 35.8 % 34.1-44.9 411) MEAN CORPUSCULAR VOLUME (BEAKER) 86.7 fL 79.4-94.8 (test code = 753) MEAN CORPUSCULAR HEMOGLOBIN 29.1 pg 25.6-32.2 (BEAKER) (test code = 751) MEAN CORPUSCULAR HEMOGLOBIN CONC 33.5 GM/DL 32.2-35.5 (BEAKER) (test code = 752) RED CELL DISTRIBUTION WIDTH 12.4 % 11.7-14.4 (BEAKER) (test code = 412) PLATELET COUNT (BEAKER) (test 209 K/CU MM 150-450 code = 756) MEAN PLATELET VOLUME (BEAKER) 8.8 fL 9.4-12.3 L (test code = 754) NUCLEATED RED BLOOD CELLS 0 /100 WBC 0-0 (BEAKER) (test code = 413) SCREEN, [id number] 07:38:00 Test Item Value Reference Range Interpretation Comments TEST URINE (BEAKER) (test Negative code = 583) [id number] 07:13:00 Test Item Value Reference Range Interpretation Comments MAGNESIUM (BEAKER) (test code = 1.8 mg/dL 1.6-2.6 627) Brick Grader ID - GLYNN [id number] 07:13:00 Test Item Value Reference Range Interpretation Comments PHOSPHORUS (BEAKER) (test code = 3.5 mg/dL 2.3-4.7 604) Brick Grader ID - GLYNN MCOMPREHENSIVE METABOLIC [id number] 07:13:00 Test Item Value Reference Range Interpretation Comments TOTAL PROTEIN 6.5 gm/dL 6.0-8.3 (BEAKER) (test code = 770) ALBUMIN (BEAKER) 3.3 g/dL 3.5-5.0 L (test code = 1145) ALKALINE PHOSPHATASE 101 U/L 40-150 (BEAKER) (test code = 346) BILIRUBIN TOTAL 1.8 mg/dL 0.2-1.2 H (BEAKER) (test code = 377) SODIUM (BEAKER) (test 138 meq/L 136-145 code = 381) POTASSIUM (BEAKER) 3.5 meq/L 3.5-5.1 (test code = 379) CHLORIDE (BEAKER) 104 meq/L 98-107 (test code = 382) CO2 (BEAKER) (test 26 meq/L 22-29 code = 355) BLOOD UREA NITROGEN 7 mg/dL 7-21 (BEAKER) (test code = 354) CREATININE (BEAKER) 1.12 mg/dL 0.57-1.25 (test code = 358) GLUCOSE RANDOM 90 mg/dL 70-105 (BEAKER) (test code = 652) CALCIUM (BEAKER) 8.6 mg/dL 8.4-10.2 (test code = 697) AST (SGOT) (BEAKER) 56 U/L 5-34 H (test code = 353) ALT (SGPT) (BEAKER) 126 U/L 6-55 H (test code = 347) EGFR (BEAKER) (test 62 mL/min/1.73 ESTIMA SANTI GFR IS code = 1092) sq m NOT ACCURATE CREATININE CLEARANCE IN PREDICTING GLOMERULAR FILTRATION RATE . ESTIMATED GFR I S NOT APPLICABLE FOR DIALYSIS PATIEN TS. Brick Grader ID - GLYNN MSpecimen slightly ictericCBC (HEMOGRAM ONLY)2021-04-21 04:34:00 Test Item Value Reference Range Interpretation Comments WHITE BLOOD CELL COUNT (BEAKER) 5.2 K/ L 3.5-10.5 (test code = 775) RED BLOOD CELL COUNT (BEAKER) 3.99 M/ L 3.93-5.22 (test code = 761) HEMOGLOBIN (BEAKER) (test code = 11.4 GM/DL 11.2-15.7 410) HEMATOCRIT (BEAKER) (test code = 34.5 % 34.1-44.9 411) MEAN CORPUSCULAR VOLUME (BEAKER) 86.5 fL 79.4-94.8 (test code = 753) MEAN CORPUSCULAR HEMOGLOBIN 28.6 pg 25.6-32.2 (BEAKER) (test code = 751) MEAN CORPUSCULAR HEMOGLOBIN CONC 33.0 GM/DL 32.2-35.5 (BEAKER) (test code = 752) RED CELL DISTRIBUTION WIDTH 12.3 % 11.7-14.4 (BEAKER) (test code = 412) PLATELET COUNT (BEAKER) (test 210 K/CU MM 150-450 code = 756) MEAN PLATELET VOLUME (BEAKER) 8.7 fL 9.4-12.3 L (test code = 754) NUCLEATED RED BLOOD CELLS 0 /100 WBC 0-0 (BEAKER) (test code = 413) FL, [id number] 12:19:00Reason for exam:->abnormal imagery [facility] : 1970 Sex: FFluoroscopic unit utilized for a procedure performed in the OR. No interpretation was requested. Refer to the operative report for findings. Refer to PACS for patient radiation dose information.COMPREHENSIVE METABOLIC [id number] 06:27:00 Test Item Value Reference Range Interpretation Comments TOTAL PROTEIN 6.2 gm/dL 6.0-8.3 (BEAKER) (test code = 770) ALBUMIN (BEAKER) 3.1 g/dL 3.5-5.0 L (test code = 1145) ALKALINE PHOSPHATASE 111 U/L 40-150 (BEAKER) (test code = 346) BILIRUBIN TOTAL 1.7 mg/dL 0.2-1.2 H (BEAKER) (test code = 377) SODIUM (BEAKER) (test 142 meq/L 136-145 code = 381) POTASSIUM (BEAKER) 3.7 meq/L 3.5-5.1 (test code = 379) CHLORIDE (BEAKER) 108 meq/L 98-107 H (test code = 382) CO2 (BEAKER) (test 29 meq/L 22-29 code = 355) BLOOD UREA NITROGEN 8 mg/dL 7-21 (BEAKER) (test code = 354) CREATININE (BEAKER) 1.14 mg/dL 0.57-1.25 (test code = 358) GLUCOSE RANDOM 95 mg/dL 70-105 (BEAKER) (test code = 652) CALCIUM (BEAKER) 8.4 mg/dL 8.4-10.2 (test code = 697) AST (SGOT) (BEAKER) 94 U/L 5-34 H (test code = 353) ALT (SGPT) (BEAKER) 156 U/L 6-55 H (test code = 347) EGFR (BEAKER) (test 61 mL/min/1.73 ESTIMA SANTI GFR IS code = 1092) sq m NOT ACCURATE CREATININE CLEARANCE IN PREDICTING GLOMERULAR FILTRATION RATE . ESTIMATED GFR I S NOT APPLICABLE FOR DIALYSIS PATIEN TS. Brick Grader ID - MADISONSALVADOR [id number] 06:27:00 Test Item Value Reference Range Interpretation Comments MAGNESIUM (BEAKER) (test code = 1.9 mg/dL 1.6-2.6 627) Brick Grader ID - MADISONSALVADOR [id number] 06:27:00 Test Item Value Reference Range Interpretation Comments PHOSPHORUS (BEAKER) (test code = 3.9 mg/dL 2.3-4.7 604) Brick Grader ID - PAZ LCBC (HEMOGRAM ONLY)2021-04-20 05:44:00 Test Item Value Reference Range Interpretation Comments WHITE BLOOD CELL COUNT (BEAKER) 4.6 K/ L 3.5-10.5 (test code = 775) RED BLOOD CELL COUNT (BEAKER) 3.96 M/ L 3.93-5.22 (test code = 761) HEMOGLOBIN (BEAKER) (test code = 11.3 GM/DL 11.2-15.7 410) HEMATOCRIT (BEAKER) (test code = 34.1 % 34.1-44.9 411) MEAN CORPUSCULAR VOLUME (BEAKER) 86.1 fL 79.4-94.8 (test code = 753) MEAN CORPUSCULAR HEMOGLOBIN 28.5 pg 25.6-32.2 (BEAKER) (test code = 751) MEAN CORPUSCULAR HEMOGLOBIN CONC 33.1 GM/DL 32.2-35.5 (BEAKER) (test code = 752) RED CELL DISTRIBUTION WIDTH 12.5 % 11.7-14.4 (BEAKER) (test code = 412) PLATELET COUNT (BEAKER) (test 194 K/CU MM 150-450 code = 756) MEAN PLATELET VOLUME (BEAKER) 8.7 fL 9.4-12.3 L (test code = 754) NUCLEATED RED BLOOD CELLS 0 /100 WBC 0-0 (BEAKER) (test code = 413) SARS-COV2/RT-PCR ([facility])2021-04-20 02:44:00 Test Item Value Reference Range Interpretation Comments SARS-COV2/RT-PCR (test code = Negative Negative [id number]) Negative result for this test determines that SARS-CoV-2 RNA was not present in the specimen above the Limit of Detection (LOD). However, Negative results do not preclude SARS-CoV-2 infection and should not be used as the sole basis for treatment or patient management decisions. Negative results must be combined with clinical observations, patient history, and epidemiological information. A false negative result may occur if a specimen is improperly collected, transported, or handled. A false negative result should be considered if patient's recent exposures or clinical presentation indicate that COVID-19 (SARS-CoV-2) is likely and diagnostic tests for other causes of illness are negative. Re-testing should be considered in cases of suspected false negatives.The limit of detection for this assay is 100 copies/mL.This SARS-CoV-2 test is a real-time RT_PCR test intended for the qualitative detection of nucleic acid from SARS-CoV-2 in a nasopharyngeal swab specimen collected from individuals suspected of COVID-19 by their healthcare provider.This test has not been Food and Drug Administration (FDA) cleared or approved. This is a modified version of an approved Emergency Use Authorization (EUA) and is in the process of review by the FDA. Once authorized by the FDA, the issued EUA will be e ffective until the declaration that circumstances exist justifying the authorization of the emergency use of in vitro diagnostic tests for detection and/or diagnosis of COVID-19 is terminated under Section 564(b)(2) of the Act or the EUA is revoked under Section 564(g) of the Act.Testing was performedusing the [employer] SARS-CoV-2 assay.Fact Sheet for Healthcare Providers:https://www.Rundown App.Matternet/perry/RT SARS-CoV-2 HCP Fact Sheet 51- 008307.pdfFact Sheet for Healthcare Patients:https://www.Rundown App.Matternet/perry/RT SARS-CoV-2 Patient Fact Sheet EN 51-180446J5.pdfMR, ABDOMEN, [id number] 11:04:00Unlisted Reason for Exam - Click Yes and Enter Reason Below->No [facility] : 1970 Sex: FFINAL REPORT MR, ABDOMEN, MRCP HISTORY: Cholelithiasis COMPARISON: None. TECHNIQUE: MRI of the abdomen with exam tailored to evaluate the biliary tree and the pancreas. Multiplanar, multisequence images, including heavily T2- weighted MRCP sequences were obtained. 3-D reconstructions of the biliary tree were provided FINDINGS: Metallic artifact significantly degrades this exam. Bile ducts: Normal in caliber. A subcentimeter intraluminal filling defect in the mid common bile duct on one of the MRCP sequences (series 1101 image 1). No strictures or dilated intra- or extrahepatic bile ducts.Liver: Mild diffuse signal loss from the in-phase to opposed-phase images, compatible with mild steatosis. A circumscribed 22 mm T2 hyperintensity in segment 5/6 and a 10 mm circumscribed T2 hyperintensity in segment 7, incompletely characterized on this noncontrast exam but likely cysts or hemangiomas.Gallbladder: Cholelithiasis and gallbladder wall thickening.Pancreas: Unremarkable. Additional Findings:Lung bases: Significantly obscured by artifact but unremarkable otherwise.Spleen: UnremarkableAdrenals: UnremarkableKidneys and ureters: Unremarkable.Bowel: Unremarkable.Lymph nodes: Unremarkable.Peritoneum: Unremarkable.Vessels: UnremarkableAbdominal wall: Unremarkable.Bones: Unremarkable. IMPRESSION: Metallic artifact significantly degrades this exam. 1.An intraluminal filling defect in the mid common bile duct on one of the MRCP sequences. Concerning for choledocholithiasis. No biliary ductal dilation. Correlate with ERCP. 2.Cholelithiasis with gallbladder wall thickening concerning for cholecystitis. 3.Mild hepatic steatosis. Circumscribed T2 hyperintensitiesin the liver are likely cysts or hemangiomas, up to 22 mm. Signed: Tuan Nicole Verified Date/Time: 04/19/2021 11:04:09 Reading Location: [facility] Diagnostic Imaging Reading Room - [place] [address] HEPATITIS PANEL, [id number] 08:02:00 Test Item Value Reference Range Interpretation Comments HEPATITIS A IGM ANTIBODY (BEAKER) Nonreactive Nonreactive (test code = 498) HEPATITIS B CORE IGM ANTIBODY Nonreactive Nonreactive (BEAKER) (test code = 645) HEPATITIS C ANTIBODY (BEAKER) Nonreactive Nonreactive (test code = 367) HEPATITIS B SURFACE ANTIGEN (2) Nonreactive Nonreactive (BEAKER) (test code = 2585) Brick Grader ID - GABRIEL CURINALYSIS W/ REFLEX URINE [id number] 05:17:00 Test Item Value Reference Range Interpretation Comments COLOR (BEAKER) (test code = 470) Yellow CLARITY (BEAKER) (test code = 469) Hazy SPECIFIC GRAVITY UA (BEAKER) (test 1.016 1.001-1.035 code = 468) PH UA (BEAKER) (test code = 467) 6.0 5.0-8.0 PROTEIN UA (BEAKER) (test code = Negative Negative 464) GLUCOSE UA (BEAKER) (test code = Negative Negative 365) KETONES UA (BEAKER) (test code = Negative Negative 371) BILIRUBIN UA (BEAKER) (test code = Negative Negative 462) BLOOD UA (BEAKER) (test code = 461) Negative Negative NITRITE UA (BEAKER) (test code = Negative Negative 465) LEUKOCYTE ESTERASE UA (BEAKER) Negative Negative (test code = 466) UROBILINOGEN UA (BEAKER) (test code 0.2 mg/dL 0.2-1.0 = 463) RBC UA (BEAKER) (test code = 519) 1 /HPF WBC UA (BEAKER) (test code = 520) 2 /HPF BACTERIA (BEAKER) (test code = 517) Rare MUCUS (BEAKER) (test code = 1574) Rare SQUAMOUS EPITHELIAL (BEAKER) (test 7 /HPF code = 516) CRYSTALS, URINE (BEAKER) (test code None Seen = 1521) AMORPHOUS CRYSTALS (BEAKER) (test Few code = 1584) SOURCE(BEAKER) (test code = 2795) Brick Grader ID - [auto]Brick Grader ID - [id number] 04:58:00 Test Item Value Reference Range Interpretation Comments LIPASE (BEAKER) (test code = 749) 19 U/L 8-78 Brick Grader ID - GLYNN MSpecimen slightly ictericC-REACTIVE [id number] 04:58:00 Test Item Value Reference Range Interpretation Comments C-REACTIVE PROTEIN (BEAKER) (test 1.68 mg/dL 0.00-0.50 H code = 676) Brick Grader ID - GLYNN [id number] 04:58:00 Test Item Value Reference Range Interpretation Comments MAGNESIUM (BEAKER) (test code = 1.8 mg/dL 1.6-2.6 627) Brick Grader ID - GLYNN [id number] 04:58:00 Test Item Value Reference Range Interpretation Comments PHOSPHORUS (BEAKER) (test code = 2.8 mg/dL 2.3-4.7 604) Brick Grader ID - GLYNN MCOMPREHENSIVE METABOLIC [id number] 04:58:00 Test Item Value Reference Range Interpretation Comments TOTAL PROTEIN 6.7 gm/dL 6.0-8.3 (BEAKER) (test code = 770) ALBUMIN (BEAKER) 3.4 g/dL 3.5-5.0 L (test code = 1145) ALKALINE PHOSPHATASE 118 U/L 40-150 (BEAKER) (test code = 346) BILIRUBIN TOTAL 2.7 mg/dL 0.2-1.2 H (BEAKER) (test code = 377) SODIUM (BEAKER) (test 140 meq/L 136-145 code = 381) POTASSIUM (BEAKER) 3.7 meq/L 3.5-5.1 (test code = 379) CHLORIDE (BEAKER) 108 meq/L 98-107 H (test code = 382) CO2 (BEAKER) (test 26 meq/L 22-29 code = 355) BLOOD UREA NITROGEN 6 mg/dL 7-21 L (BEAKER) (test code = 354) CREATININE (BEAKER) 0.99 mg/dL 0.57-1.25 (test code = 358) GLUCOSE RANDOM 103 mg/dL 70-105 (BEAKER) (test code = 652) CALCIUM (BEAKER) 8.5 mg/dL 8.4-10.2 (test code = 697) AST (SGOT) (BEAKER) 259 U/L 5-34 H (test code = 353) ALT (SGPT) (BEAKER) 207 U/L 6-55 H (test code = 347) EGFR (BEAKER) (test 72 mL/min/1.73 ESTIMA SANTI GFR IS code = 1092) sq m NOT ACCURATE CREATININE CLEARANCE IN PREDICTING GLOMERULAR FILTRATION RATE . ESTIMATED GFR I S NOT APPLICABLE FOR DIALYSIS PATIEN TS. Brick Grader ID - GLYNN MSpecimen slightly ictericBILIRUBIN, [id number] 04:58:00 Test Item Value Reference Range Interpretation Comments BILIRUBIN DIRECT (BEAKER) (test 1.5 mg/dL 0.1-0.5 H code = 706) Brick Grader ID - GLYNN MPROTHROMBIN [id number] 04:26:00 Test Item Value Reference Range Interpretation Comments PROTIME (BEAKER) 13.1 seconds 11.9-14.2 (test code = 759) INR (BEAKER) (test 1.01 See_Comment [Automat ed message] code = 370) The system [employer] generated this result transmitted ref erence range: <=5.90. The reference range was not used to int erpret this result as normal/abnormal . RECOMMENDED COUMADIN/WARFARIN INR THERAPY RANGESSTANDARD DOSE: 2.0 - 3.0 Includes: PROPHYLAXIS forvenous thrombosis, systemic embolization; TREATMENT for venous thrombosis and/or pulmonary embolus.HIGH RISK: Target INR is 2.5-3.5 for patients with mechanical heart valves.CBC W/PLT COUNT & AUTO DIFFERENTIAL 2021-04-19 04:21:00 Test Item Value Reference Range Interpretation Comments WHITE BLOOD CELL COUNT (BEAKER) 5.0 K/ L 3.5-10.5 (test code = 775) RED BLOOD CELL COUNT (BEAKER) 4.15 M/ L 3.93-5.22 (test code = 761) HEMOGLOBIN (BEAKER) (test code = 11.8 GM/DL 11.2-15.7 410) HEMATOCRIT (BEAKER) (test code = 35.7 % 34.1-44.9 411) MEAN CORPUSCULAR VOLUME (BEAKER) 86.0 fL 79.4-94.8 (test code = 753) MEAN CORPUSCULAR HEMOGLOBIN 28.4 pg 25.6-32.2 (BEAKER) (test code = 751) MEAN CORPUSCULAR HEMOGLOBIN CONC 33.1 GM/DL 32.2-35.5 (BEAKER) (test code = 752) RED CELL DISTRIBUTION WIDTH 12.6 % 11.7-14.4 (BEAKER) (test code = 412) PLATELET COUNT (BEAKER) (test 203 K/CU MM 150-450 code = 756) MEAN PLATELET VOLUME (BEAKER) 8.7 fL 9.4-12.3 L (test code = 754) NUCLEATED RED BLOOD CELLS 0 /100 WBC 0-0 (BEAKER) (test code = 413) NEUTROPHILS RELATIVE PERCENT 64 % (BEAKER) (test code = 429) LYMPHOCYTES RELATIVE PERCENT 29 % (BEAKER) (test code = 430) MONOCYTES RELATIVE PERCENT 5 % (BEAKER) (test code = 431) EOSINOPHILS RELATIVE PERCENT 1 % (BEAKER) (test code = 432) BASOPHILS RELATIVE PERCENT 0 % (BEAKER) (test code = 437) NEUTROPHILS ABSOLUTE COUNT 3.19 K/ L 1.56-6.13 (BEAKER) (test code = 670) LYMPHOCYTES ABSOLUTE COUNT 1.45 K/ L 1.18-3.74 (BEAKER) (test code = 414) MONOCYTES ABSOLUTE COUNT (BEAKER) 0.26 K/ L 0.24-0.36 (test code = 415) EOSINOPHILS ABSOLUTE COUNT 0.05 K/ L 0.04-0.36 (BEAKER) (test code = 416) BASOPHILS ABSOLUTE COUNT (BEAKER) 0.01 K/ L 0.01-0.08 (test code = 417) IMMATURE GRANULOCYTES-RELATIVE 0 % 0-1 PERCENT (BEAKER) (test code = 2801) U/S, ABDOMINAL, [id number] 03:10:00Abdomen limited area? Add comment if clarification is needed.->Gall BladderReason for exam:->ch oledocholithiasisShould this be performed at the bedside?->Yes [facility] 1970 Sex: FFINAL REPORT EXAM/TECHNIQUE: Limited ultrasound of the abdomen, right upper quadrant. INDICATION: Choledocholithiasis. COMPARISON: None. FINDINGS: Liver: Visualized liver is normal in appearance and contour without focal mass. The main portal vein is patent measuring 12 mm. Biliary: Cholelithiasis is present. Adenomyomatosis may be present. No wall thickening, dilatation, or sonographic Enamorado sign. The common bile duct measures 3 mm. Pancreas: The visualized pancreas is unremarkable in appearance. Right kidney: No hydronephrosis or focal mass. Impression: Cholelithiasis is present without biliary dilatation. Signed: Danny Trammell MDReport Verified Date/Time: 04/19/2021 03:10:27
[2021-08-19] MEDS ORDERED: HYDROCODONE/APAP 5/325 MG TAB ONE (10:41)
--- NOTE | 2021-08-19 12:12 | RAD REPORT ---
EXAM DESCRIPTION: RAD - Lumbar Spine 3 Views - 08/19/2021 11:51 am CLINICAL HISTORY: SMASH INJURY COMPARISON: Lumbar Spine 3 Views dated 07/10/2018 FINDINGS: A three-view lumbar spine examination was performed. Lumbar bodies are normal in height. There is very slight retrolisthesis of L2 on 3 with L2-3 disc spa ce narrowed. This is a stable presentation from 2018. Endplate spurring changes are seen throughout t he lumbar spine also similar to comparison. No fracture or acute bony process seen. No other disc spa ce narrowing. Facet joint degenerative change in the mid and lower lumbar spine without significant p rogression since 2018. No pars defects identified. IMPRESSION: Vertebral body, disc and facet joint degenerative changes are present as detailed. No acute lumbar finding. No significant change from 2018 imaging.
--- NOTE | 2021-08-19 12:13 | RAD REPORT ---
EXAM DESCRIPTION: RAD - Pelvis - 08/19/2021 11:51 am CLINICAL HISTORY: TRAUMA COMPARISON: Stone Protocol dated 04/18/2021 TECHNIQUE: AP imaging of the pelvis was obtained. FINDINGS: No fracture of the bony pelvis identifiable. Mild SI joint degenerative changes are presen t. Mild sclerosis along the margins of the SI joints match the CT study. Sclerosis of the pubic symph ysis also matches the prior study. The bilateral hip joint degenerative changes are stable. No AVN or acute femoral head finding. IMPRESSION: Pelvis and hip joint degenerative change matching the recent 04/18/2021 CT study. No acu te findings.
--- NOTE | 2021-08-19 12:14 | RAD REPORT ---
EXAM DESCRIPTION: RAD - Hip Right 2 View - 08/19/2021 11:52 am CLINICAL HISTORY: SMASH INJURY COMPARISON: Stone Protocol dated 04/18/2021 FINDINGS: AP and frog-leg views of the right hip were obtained. There is no fracture or dislocation. No AVN or focal head abnormality. Hip joint degenerative changes are present with joint space narrowing and spurring along the articular margins of the femoral head and acetabulum. No periarticular mass or hematoma. SI joint degenerative changes are present. The SI joint and hip joint degenerative changes are not substantially different from the 04/18/2021 C T study. IMPRESSION: Negative right hip examination for acute or significant findings. Degenerative hip joint changes match the 04/18/2021 CT study.
--- NOTE | 2021-08-19 12:28 | ER ---
Nurse's Notes [facility] Name: Vanna Swan Age: 51 yrs Sex: Female : 1970 Arrival Date: 08/19/2021 Time: 09:12 Bed 23 Private MD: Diagnosis: Contusions to low back and right hip, laceration to left flank (no repair needed) Presentation: 08/19 09:42 Chief complaint: Patient states: i had an injection done in my neck this morning. they tw2 dropped me from laying. i was under sedation. i was under anestheisa when it happened so i dont know what all i hit. it was about 8 am. my RIGHT hip is hurting able. i know i have a laceration on my back because there was bandages. i asked them what i hit and they said i hit the surgical chair. they wanted to keep me and watch me but i told them my brother had been out there an hour waiting for me so i was ready to go. they just now let me out of over there and when i put weight i noticed the pain in my RIGHT hip. we came straight over here. Coronavirus screen: At this time, the client does not indicate any symptoms associated with coronavirus-19. Ebola Screen: Patient denies travel to an Ebola-affected area in the 21 days before illness onset. Initial Sepsis Screen: Does the patient meet any 2 criteria? No. Patient's initial sepsis screen is negative. Does the patient have a suspected source of infection? No. Patient's initial sepsis screen is negative. Risk Assessment: Do you want to hurt yourself or someone else? Patient reports no desire to harm self or others. Onset of symptoms was August 19, 2021. 09:42 Method Of Arrival: Wheelchair tw2 09:42 Acuity: AILEEN 4 tw2 10:25 Care prior to arrival: Bleeding of injury controlled. Injury dressed. Mechanism of ab2 Injury: Laceration sustained Injury was Pt was under anesthesia and was told she rolled off the side of the bed during her neck injection and fell into a surgical chair, causing a laceration to the left lower area of her back. . Trauma event details: Injury occurred in the [facility], Injury occurred: in a public building. Injury occurred: August 19, 2021. Triage Assessment: 09:48 General: Appears in no apparent distress. obese, well groomed, Behavior is. Pain: tw2 Complains of pain in right hip and back. 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 N/A - Post-menopause ab2 Trauma Activation: Not Applicable Physician: ED Physician; Name: ; Notified At: ; Arrived At: Physician: General Surgeon; Name: ; Notified At: ; Arrived At: Physician: Radiology; Name: ; Notified At: ; Arrived At: Physician: Respiratory; Name: ; Notified At: ; Arrived At: Physician: Lab; Name: ; Notified At: ; Arrived At: Historical: - Allergies: 09:47 No Known Allergies; tw2 - Home Meds: 09:47 lisinopril Oral [Active]; pantoprazole Oral [Active]; tw2 - PMHx: 09:47 Colitis; Hypertension; Irregular heart rate; Ulcers; tw2 - PSHx: 09:47 uterine ablation; tw2 - Immunization history:: Adult Immunizations up to date, Flu vaccine is not up to date. - Social history:: Smoking status: Patient denies any tobacco usage or history of. - Immunization history: Last tetanus immunization: - up to date. Screenin:21 Abuse screen: Denies threats or abuse. Denies injuries from another. Nutritional ab2 screening: No deficits noted. Tuberculosis screening: No symptoms or risk factors identified. Fall Risk None identified. Primary Survey: 10:21 NO uncontrolled hemorrhage observed. A: The patient is alert. Airway: patent, No ab2 supplemental oxygen in use on arrival. Breathing/Chest: Respiratory pattern: regular, Respiratory effort: spontaneous, unlabored, Breath sounds: clear, Chest inspection: symmetrical rise and fall of the chest. Circulation: Heart tones present. Pulses: palpable right dorsalis pedis artery and left dorsalis pedis artery. Disability Alert. Exposure/Environment: All clothing and personal items were removed. Forensic evidence collection is not deemed to be indicated at this time. Items placed in patient belonging bag. There is no evidence of uncontrolled external bleeding. Obvious injury(ies) are noted at this time: Pt has superficial laceration to left lower back. Reassessment Airway Airway Patent Breathing/Chest Respiratory pattern Regular Respiratory effort Spontaneous Unlabored Breath sounds Clear Circulation Pulses Palpable Disability Alert. Assessment: 10:17 General: Appears in no apparent distress. uncomfortable, well groomed, Behavior is ab2 calm, cooperative, appropriate for age. Pain: Complains of pain in left low back Pain currently is 10 out of 10 on a pain scale. Quality of pain is described as sharp, Pain began suddenly, 1 hour ago. Neuro: No deficits noted. Level of Consciousness is Oriented to person, place, time, situation, Appropriate for age. GI: No deficits noted. No signs and/or symptoms were reported involving the gastrointestinal system. : No deficits noted. No signs and/or symptoms were reported regarding the genitourinary system. Derm: Wound noted left low back Other: superficial laceration measuring approx 20cm in length Reports pain that is 10 out of 10 on a pain scale. Musculoskeletal: Reports pain in left lower back. Injury Description: Laceration sustained to left low back is superficial, > 20 cm long, was sustained 1-2 hours ago. a small amount of bleeding noted at this time. Vital Signs: 09:42 BP 143 / 106; Pulse 70; Resp 17; Temp 97.7; Pulse Ox 98% on R/A; Weight 128.82 kg (R); tw2 Height 6 ft. 2 in. (187.96 cm) (R); Pain 10/10; 10:32 BP 167 / 117; Pulse 73; Resp 18; Pulse Ox 97% ; watts 11:16 BP 129 / 82; Pulse 79; Resp 16; Pulse Ox 97% ; ab2 09:42 Body Mass Index 36.46 (128.82 kg, 187.96 cm) tw2 [place] Coma Score: 10:23 Eye Response: spontaneous(4). Verbal Response: oriented(5). Motor Response: obeys ab2 commands(6). Total: 15. Trauma Score (Adult): 10:23 Eye Response: spontaneous(1); Verbal Response: oriented(1); Motor Response: obeys ab2 commands(2); Systolic BP: > 89 mm Hg(4); Respiratory Rate: 10 to 29 per min(4); Giles Score: 15; Trauma Score: 12 ED Course: 09:12 Patient arrived in ED. as 09:46 Triage completed. tw2 09:49 Arm band placed on. tw2 10:16 Carlin Muñoz is Primary Nurse. ab2 10:17 Hermes Fu MD is Attending Physician. sp3 10:23 No provider procedures requiring assistance completed. Patient did not have IV access ab2 during this emergency room visit. Patient maintains SpO2 saturation greater than 95% on room air. Dressings: non-adherent dressing x 1 left low back. 10:27 Patient has correct armband on for positive identification. Placed in gown. Bed in low ab2 position. Call light in reach. Side rails up X2. Warm blanket given. Pillow given. Verbal reassurance given. Head of bed elevated. 10:28 Thermoregulation: warm blanket given to patient. ab2 11:51 XRAY Lumbar Spine (3 Views) In Process Unspecified. EDMS 11:51 Pelvis XRAY In Process Unspecified. EDMS 11:51 Hip Right 2 View In Process Unspecified. EDMS Administered Medications: 10:42 Drug: HYDROcodone-acetaminophen 5 mg-325 mg 2 tabs Route: PO; ab2 12:44 Follow up: Response: No adverse reaction; Pain is decreased watts Intake: 12:45 PO: 0ml; Total: 0ml. watts Outcome: 12:27 Discharge ordered by . sp3 12:45 Discharged to home watts 12:45 Condition: good 12:45 Discharge instructions given to patient. 12:45 Patient's length of stay was not longer than 2 hours. watts 12:45 Patient left the ED. watts Signatures: Dispatcher [employer] Viky Calzada Tara RN RN tw2 Hermes Fu MD MD sp3 Isabell Blevins RN RN ha Bleininger, Alexis ab2
--- NOTE | 2021-08-19 12:28 | EDPHYS ---
Physician Documentation [facility] Name: Vanna Swan Age: 51 yrs Sex: Female : 1970 Arrival Date: 08/19/2021 Time: 09:12 Bed 23 Private MD: ED Physician Hermes Fu HPI: 08/19 10:35 This 51 yrs old Black Female presents to ER via Wheelchair with complaints of Fall sp3 Injury, Hip Pain, Laceration - back. 10:35 51-year-old female with a history of hypertension and cervical radiculopathy who was sp3 getting steroid injections performed at the local procedure clinic presents with chief complaint bilateral hip pain low back pain and laceration secondary to allegedly "being dropped" after procedure by the staff there. Patient states that after the procedure while she was still sedated that the staff dropped her onto the ground where she injured herself in the above manner. Patient does not have full recollection of what happened secondary to being sedated. She states that later "they admitted to dropping her" and she presents here for evaluation of her pain and injuries. She currently does not have a headache, change in her neck pain, chest pain, upper back pain, rash, bleeding, abdominal pain, nausea, vomiting, diarrhea, any other symptoms on ROS. She cannot say whether she lost consciousness or not since she was in a sedated state.. 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 - Social history:: Smoking status: Patient denies any tobacco usage or history of. - Immunization history: Last tetanus immunization: - up to date. ROS: 10:37 Constitutional: Negative for fever, chills, and weight loss, Eyes: Negative for injury, sp3 pain, redness, and discharge, ENT: Negative for injury, pain, and discharge, Neck: Negative for injury, pain, and swelling, Cardiovascular: Negative for chest pain, palpitations, and edema, Respiratory: Negative for shortness of breath, cough, wheezing, and pleuritic chest pain, Abdomen/GI: Negative for abdominal pain, nausea, vomiting, diarrhea, and constipation, Neuro: Negative for headache, weakness, numbness, tingling, and seizure. 10:37 All other systems are negative. Exam: 10:37 Constitutional: This is a well developed, well nourished patient who is awake, alert, sp3 and in no acute distress. Head/Face: Normocephalic, atraumatic. Eyes: Pupils equal round and reactive to light, extra-ocular motions intact. Lids and lashes normal. Conjunctiva and sclera are non-icteric and not injected. Cornea within normal limits. Periorbital areas with no swelling, redness, or edema. ENT: Nares patent. No nasal discharge, no septal abnormalities noted. External auditory canals are clear. Oropharynx with no redness, swelling, or masses, exudates, or evidence of obstruction, uvula midline. Mucous membranes moist. Neck: Trachea midline, no thyromegaly or masses palpated, and no cervical lymphadenopathy. Supple, full range of motion without nuchal rigidity, or vertebral point tenderness. No Meningismus. Chest/axilla: Normal chest wall appearance and motion. Nontender with no deformity. No lesions are appreciated. Cardiovascular: Regular rate and rhythm with a normal S1 and S2. No gallops, murmurs, or rubs. Normal PMI, no JVD. No pulse deficits. Respiratory: Lungs have equal breath sounds bilaterally, clear to auscultation and percussion. No rales, rhonchi or wheezes noted. No increased work of breathing, no retractions or nasal flaring. Abdomen/GI: Soft, non-tender, with normal bowel sounds. No distension or tympany. No guarding or rebound. No evidence of tenderness throughout. Skin: Warm, dry with normal turgor. Normal color with no rashes, no lesions, and no evidence of cellulitis. Neuro: Awake and alert, GCS 15, oriented to person, place, time, and situation. Cranial nerves II-XII grossly intact. Motor strength 5/5 in all extremities. Sensory grossly intact. Cerebellar exam normal. Normal gait. Psych: Awake, alert, with orientation to person, place and time. Behavior, mood, and affect are within normal limits. 10:37 Back: Approximately 20 cm laceration going horizontally on her lower back that is superficial with minimal bleeding and not requiring repair.. 10:37 Musculoskeletal/extremity: Patient has diffuse lower back pain including pain on palpation of the lower spinous processes. It is hard for patient to bear weight secondary to pain on her right hip. There is no hip shortening and range of motion is present. No pain to pelvic rock no lower abdominal pain noted. Distal exam is normal.. Vital Signs: 09:42 BP 143 / 106; Pulse 70; Resp 17; Temp 97.7; Pulse Ox 98% on R/A; Weight 128.82 kg (R); tw2 Height 6 ft. 2 in. (187.96 cm) (R); Pain 10/10; 10:32 BP 167 / 117; Pulse 73; Resp 18; Pulse Ox 97% ; watts 11:16 BP 129 / 82; Pulse 79; Resp 16; Pulse Ox 97% ; ab2 09:42 Body Mass Index 36.46 (128.82 kg, 187.96 cm) tw2 Giles Coma Score: 10:23 Eye Response: spontaneous(4). Verbal Response: oriented(5). Motor Response: obeys ab2 commands(6). Total: 15. Trauma Score (Adult): 10:23 Eye Response: spontaneous(1); Verbal Response: oriented(1); Motor Response: obeys ab2 commands(2); Systolic BP: > 89 mm Hg(4); Respiratory Rate: 10 to 29 per min(4); [place] Score: 15; Trauma Score: 12 MDM: 10:34 Patient medically screened. sp3 10:39 Data reviewed: vital signs, nurses notes. ED course: 51-year-old female presents with sp3 injuries consistent with a fall type mechanism. Will obtain x-rays of the pelvis, right hip, and lumbosacral spine. 2 [place]'s will be given for pain control. I do not believe patient has significant head or neck injury or any other secondary injuries at this time. Patient is okay with the plan and will be discharged if work-up is negative. Laceration will be cleaned and dressed.. 12:25 ED course: X-rays negative and laceration has been dressed. Will discharge patient home sp3 at this time.. 08/19 10:34 Order name: XRAY Lumbar Spine (3 Views); Complete Time: 12:25 sp3 08/19 10:34 Order name: Pelvis XRAY; Complete Time: 12:25 sp3 08/19 11:35 Order name: Hip Right 2 View; Complete Time: 12:25 EDMS Administered Medications: 10:42 Drug: HYDROcodone-acetaminophen 5 mg-325 mg 2 tabs Route: PO; ab2 12:44 Follow up: Response: No adverse reaction; Pain is decreased watts Disposition Summary: 08/19/21 12:27 Discharge Ordered Location: Home sp3 Condition: Stable sp3 Diagnosis - Contusions to low back and right hip, laceration to left flank (no repair needed) sp3 Followup: sp3 - With: Private Physician - When: As needed - Reason: Continuance of care Discharge Instructions: - Discharge Summary Sheet sp3 - Contusion sp3 - Laceration Care, Adult sp3 Forms: - Medication Reconciliation Form sp3 - Thank You Letter sp3 - Antibiotic Education sp3 - Prescription Opioid Use sp3 Signatures: Dispatcher [employer] EDMS Emely Jeffery, RN RN tw2 Hermes Fu MD MD sp3 Au-StagerIsabell RN RN Carlin Roblero ab2 Corrections: (The following items were deleted from the chart) 11:35 10:34 Hip Left 2 View+RAD.[email or web address].[email or web address] ordered. EDMS EDMS
[2021-08-19 12:54] VITALS: TEMP 97.7
[2021-08-19 12:56] VITALS: O2SAT 97
[2021-08-19 12:57] VITALS: BP 129/82
== END 2021-08-19 12:45 | disposition home or self-care (01) ==
LOC: ER 09:09
DX: S70.01XA Contusion of right hip, initial encounter (principal); S30.0XXA Contusion of lower back and pelvis, initial encounter; S31.119A Laceration without foreign body of abdominal wall, unspecified quadrant without penetration into peritoneal cavity, initial encounter; W17.89XA Other fall from one level to another, initial encounter; Y93.89 Activity, other specified; Y92.239 Unspecified place in hospital as the place of occurrence of the external cause; Z98.890 Other specified postprocedural states
CPT/HCPCS: 72100; 72170; 99284

== ENCOUNTER 2021-08-21 09:29 | Emergency (ER) | payer OTHER ==
--- OUTSIDE RECORDS SUMMARY | 2021-08-21 09:32 | XMS REPORT | Continuity of Care Document ---
:1970 Author Organization [facility] t Address [address] [place] [address] Care Team Providers Name Role Phone LYSSA BAER JR Primary Care Physician Unavailable DANY TEJADA Attending Clinician Unavailable ASIYA Attending Clinician Unavailable DANY TEJADA Admitting Clinician Unavailable Payers Payer Name Policy Type Policy Number Effective Date Expiration Date S ource UNITED MEDICARE [id number] 2020 O 00:00:00 [facility] [id number] 2019 PLAN 00:00:00 Problems This patient has no known problems. Allergies, Adverse Reactions, Alerts Allergy Allergy Status Severity Reaction(s) Onset Inactive Treating Comm ents Source Name Type Date Date Clinician NO KNOWN Allergy Active [facility] Medications This patient has no known medications. [...] ID 2021-05-22 Inpatient ER MARISEL TEJADA Gastro [id number] [facility] 11:27:13 LAMIN 2021-04-29 2021-04-29 Outpatient EL MARISEL BRADEN [facility] [id number] [facility] 00:00:00 00:00:00 VALE 2021-04-19 2021-04-19 Outpatient [facility] [id number] [facility] [place] 00:40:00 23:59:00 [facility] Results Test Description Test Time Test Comments Results Result [facility] e Comments TISSUE EXAM 2021-04-27 Surgical Pathology 13:15:38 Report Case: [id number] Authorizing Provider: Yamilex Cota MD Collected: 04/22/2021 10:18 AM Ordering Location: [facility] PERIOPERATIVE Received: 04/22/2021 11:00 AM SERVICES Pathologist: Amaya Peraza MD Specimen: Gallbladder GALLBLADDER, CHOLECYSTECTOMY:- CHRONIC CHOLECYSTITIS- CHOLELITHIASIS- CHOLESTEROLOSIS Signing Pathologist Direct Phone Line: [phone] ally signed by Amaya Peraza MD on 04/27/2021 at 1:15 [id number] asisGallbladderPerform ed.[facility], Department of Pathology, [address] [place] [address], [facility], [address] [place] [address], [facility], [facility], [address] [place] [address], Xjddnvfu fresh labeled the patient's name, accession number [...] thick and displays multiple embedded black calculi. Stunner sections are submitted in A1-A2, with the [...] NOT 1092) ACCURATE CRE ATININE CLEARANCE IN [place] EDICTING GLOMERULAR FILT RATION RATE. ESTIMATED GFR IS NOT APPLICABLE FOR DIALYSIS PATIENTS. [facility] GEETA - KIMBER FCBC (HEMOGRAM ONLY)2021-04-24 07:03:46 [...] WBC 0-0 (BEAKER) (test code = 413) [id number] 07:25:27 Test Item Value Reference Range Interpretation Comments PHOSPHORUS (BEAKER) (test code = 2.5 mg/dL 2.3-4.7 604) [facility] ID - GLYNN [id number] 07:25:26 Test Item Value Reference Range Interpretation Comments MAGNESIUM (BEAKER) (test code = 1.9 mg/dL 1.6-2.6 627) [facility] ID - GLYNN MCOMPREHENSIVE METABOLIC [id number] 07:25:25 Test Item Value Reference Range Interpretation [...] S NOT APPLICABLE FOR DIALYSIS PATIEN TS. [facility] ID - GLYNN MCBC (HEMOGRAM ONLY)2021-04-23 06:17:56 [...] (BEAKER) (test code = 413) COMPREHENSIVE METABOLIC [id number] 05:27:00 Test Item Value Reference Range Interpretation [...] S NOT APPLICABLE FOR DIALYSIS PATIEN TS. [facility] ID - PAZ [id number] 05:27:00 Test Item Value Reference Range Interpretation Comments MAGNESIUM (BEAKER) (test code = 1.9 mg/dL 1.6-2.6 627) [facility] ID - PAZ [id number] 05:27:00 Test Item Value Reference Range Interpretation Comments PHOSPHORUS (BEAKER) (test code = 3.3 mg/dL 2.3-4.7 604) [facility] ID - PAZ LCBC (HEMOGRAM ONLY)2021-04-22 04:50:00 [...] 0-0 (BEAKER) (test code = 413) SCREEN, [id number] 07:38:00 Test Item Value Reference Range Interpretation Comments TEST URINE (BEAKER) (test Negative code = 583) [id number] 07:13:00 Test Item Value Reference Range Interpretation Comments MAGNESIUM (BEAKER) (test code = 1.8 mg/dL 1.6-2.6 627) [facility] ID - GLYNN [id number] 07:13:00 Test Item Value Reference Range Interpretation Comments PHOSPHORUS (BEAKER) (test code = 3.5 mg/dL 2.3-4.7 604) [facility] ID - GLYNN MCOMPREHENSIVE METABOLIC [id number] 07:13:00 Test Item Value Reference Range Interpretation [...] S NOT APPLICABLE FOR DIALYSIS PATIEN TS. [facility] ID - GLYNN MSpecimen slightly ictericCBC (HEMOGRAM [...] 0-0 (BEAKER) (test code = 413) [place], [id number] 12:19:00Reason for exam:->abnormal imagery [facility] 1970 Sex: FFluoroscopic unit utilized for a procedure performed in the OR. No interpretation was requested. Refer to the operative report for findings. Refer to PACS for patient radiation dose information.COMPREHENSIVE METABOLIC [id number] 06:27:00 Test Item Value Reference Range Interpretation [...] S NOT APPLICABLE FOR DIALYSIS PATIEN TS. [facility] ID - MADISONSALVADOR [id number] 06:27:00 Test Item Value Reference Range Interpretation Comments MAGNESIUM (BEAKER) (test code = 1.9 mg/dL 1.6-2.6 627) [facility] ID - MADISONSALVADOR [id number] 06:27:00 Test Item Value Reference Range Interpretation Comments PHOSPHORUS (BEAKER) (test code = 3.9 mg/dL 2.3-4.7 604) [facility] ID - PAZ LCBC (HEMOGRAM ONLY)2021-04-20 05:44:00 [...] 0-0 (BEAKER) (test code = 413) SARS-COV2/RT-PCR ([facility])2021-04-20 02:44:00 Test Item Value Reference Range Interpretation Comments SARS-COV2/RT-PCR (test code = Negative Negative [id number]) Negative result for this test determines that [...] the [place] SARS-CoV-2 assay.Fact Sheet for Healthcare Providers:https://www.[employer].DesignHub/perry/RT SARS-CoV-2 HCP Fact Sheet 51- 066527.pdfFact Sheet for Healthcare Patients:https://www.[employer]Hub/perry/RT SARS-CoV-2 Patient Fact Sheet EN 51-877526M7.pdfMR, ABDOMEN, [id number] 11:04:00Unlisted Reason for Exam - Click Yes and Enter Reason Below->No [facility] 1970 Sex: FFINAL REPORT [...] Nicole Verified Date/Time: 04/19/2021 11:04:09 Reading Location: [facility] Diagnostic Imaging Reading Room - [place] [address] HEPATITIS PANEL, [id number] 08:02:00 Test Item Value Reference Range Interpretation Comments HEPATITIS A IGM ANTIBODY (BEAKER) Nonreactive Nonreactive (test code = 498) HEPATITIS B CORE IGM ANTIBODY Nonreactive Nonreactive (BEAKER) (test code = 645) HEPATITIS C ANTIBODY (BEAKER) Nonreactive Nonreactive (test code = 367) HEPATITIS B SURFACE ANTIGEN (2) Nonreactive Nonreactive (BEAKER) (test code = 2585) [facility] ID - GABRIEL CURINALYSIS W/ REFLEX URINE [id number] 05:17:00 Test Item Value Reference Range Interpretation [...] = 1584) SOURCE(BEAKER) (test code = 2795) [facility] ID - [auto][facility] ID - [id number] 04:58:00 Test Item Value Reference Range Interpretation Comments LIPASE (BEAKER) (test code = 749) 19 U/L 8-78 [facility] ID - GLYNN MSpecimen slightly ictericC-REACTIVE [id number] 04:58:00 Test Item Value Reference Range Interpretation Comments C-REACTIVE PROTEIN (BEAKER) (test 1.68 mg/dL 0.00-0.50 H code = 676) [facility] ID - GLYNN [id number] 04:58:00 Test Item Value Reference Range Interpretation Comments MAGNESIUM (BEAKER) (test code = 1.8 mg/dL 1.6-2.6 627) [facility] ID - GLYNN [id number] 04:58:00 Test Item Value Reference Range Interpretation Comments PHOSPHORUS (BEAKER) (test code = 2.8 mg/dL 2.3-4.7 604) [facility] ID - GLYNN MCOMPREHENSIVE METABOLIC [id number] 04:58:00 Test Item Value Reference Range Interpretation [...] S NOT APPLICABLE FOR DIALYSIS PATIEN TS. [facility] ID - GLYNN MSpecimen slightly ictericBILIRUBIN, [id number] 04:58:00 Test Item Value Reference Range Interpretation Comments BILIRUBIN DIRECT (BEAKER) (test 1.5 mg/dL 0.1-0.5 H code = 706) [facility] ID - GLYNN MPROTHROMBIN [id number] 04:26:00 Test Item Value Reference Range Interpretation Comments PROTIME (BEAKER) 13.1 seconds 11.9-14.2 (test code = 759) INR (BEAKER) (test 1.01 See_Comment [Automat ed message] code = 370) The system Akred[employer] generated this result transmitted ref erence range: [...] (BEAKER) (test code = 2801) U/S, ABDOMINAL, [id number] 03:10:00Abdomen limited area? Add comment if clarification is needed.->Gall BladderReason for exam:->ch oledocholithiasisShould this be performed at the bedside?->Yes [facility] : 1970 Sex: FFINAL REPORT [...]
[2021-08-21] MEDS ORDERED: KETOROLAC 30 MG/ML INJ ONE (10:21)
--- NOTE | 2021-08-21 11:10 | RAD REPORT ---
EXAM DESCRIPTION: CT - Head C Spine Cap Wo Con - 08/21/2021 10:43 am TECHNIQUE: Computed axial tomography of the head and cervical spine was obtained. Coronal and sagitt al reconstruction was performed Computed axial tomography of the chest, abdomen and pelvis was obtained. Contrast was not requested. All CT scans are performed using dose optimization technique as appropriate and may include automated exposure control or mA/KV adjustment according to patient size. CLINICAL HISTORY: Head and neck injury with chest and abdominal pain status post fall COMPARISON: CT 2020 FINDINGS: An intracranial bleed is not seen. The ventricles are normal in caliber. An extra-axial fluid collection is not noted. . Fluid within the sinuses/mastoids is not seen. A cervical fracture is not seen. No dislocation is noted. The evaluation of mediastinum, jc, vessels, solid organs and bowel are limited secondary to the lac k of contrast administration. A mediastinal hematoma is not noted. A pleural effusion is not seen. A lung contusion is not present. The liver,spleen, pancreas, adrenals,kidneys and bladder do not demonstrate a traumatic injury. Mild contusion within the subcutaneous tissues of the left posterior pelvis IMPRESSION: 1. No acute intracranial abnormality is seen. 2. A cervical fracture is not visualized. If the patient continues have symptoms to suggest intracran ial/spinal cord pathology MRI be recommended 3. No traumatic abnormality involving the chest/abdomen 4. Mild contusion within the subcutaneous tissues of the left posterior pelvis
--- NOTE | 2021-08-21 11:12 | ER ---
Nurse's Notes [facility] Name: Vanna Swan Age: 51 yrs Sex: Female : 1970 Arrival Date: 08/21/2021 Time: 09:30 Bed 15 Private MD: Diagnosis: Contusion of lower back and pelvis Presentation: 08/21 09:35 Chief complaint: Patient states: On Sunday, she was having a back injections and fell ww off the surgical table while under anesthesia. She was seen here Sunday in the ER. Complaining of right hip to right thigh, headache, neck pain and back pain. Has 2 abrasions to the back. Coronavirus screen: Vaccine status: Patient reports receiving the 2nd dose of the covid vaccine. Client denies travel out of the [place] in the last 14 days. Ebola Screen: Patient negative for fever greater than or equal to 101.5 degrees Fahrenheit, and additional compatible Ebola Virus Disease symptoms Patient denies exposure to infectious person. Initial Sepsis Screen: Does the patient meet any 2 criteria? No. Patient's initial sepsis screen is negative. Initial Sepsis Screen: Does the patient have a suspected source of infection? No. Patient's initial sepsis screen is negative. Risk Assessment: Do you want to hurt yourself or someone else? Patient reports no desire to harm self or others. Onset of symptoms was August 19, 2021. 09:35 Method Of Arrival: Wheelchair ww 09:35 Acuity: AILEEN 3 ww Triage Assessment: 09:41 Headache History: Denies prior headaches. General: Appears in no apparent distress. ww Behavior is cooperative, appropriate for age. Pain: Complains of pain in scalp, back and right leg Pain currently is 10 out of 10 on a pain scale. Pain began 2-3 days ago. EENT: No deficits noted. No signs and/or symptoms were reported regarding the EENT system. Neuro: No deficits noted. Level of Consciousness is awake, alert, obeys commands, Oriented to person, place, time, situation. Cardiovascular: No deficits noted. Respiratory: No deficits noted. Airway is patent Respiratory effort is even, unlabored, Respiratory pattern is regular, symmetrical. GI: No deficits noted. No signs and/or symptoms were reported involving the gastrointestinal system. : No deficits noted. No signs and/or symptoms were reported regarding the genitourinary system. Derm: Skin is healthy with good turgor, 2 abrasions on lower back. Musculoskeletal: Reports pain in scalp, back and right leg. FAMILY MEDICINE RESIDENT: 09:41 LMP N/A - Post-menopause ww Historical: - Allergies: 09:41 No Known Allergies; ww - Home Meds: :41 lisinopril Oral [Active]; pantoprazole Oral [Active]; ww - PMHx: :41 Colitis; Hypertension; Irregular heart rate; Ulcers; ww - PSHx: 09:41 uterine ablation; neck injections; ww - Immunization history:: Client reports receiving the 2nd dose of the Covid vaccine. - Social history:: Smoking status: Patient reports the use of cigarette tobacco products, smokes one-half pack cigarettes per day, Patient/guardian denies using alcohol, street drugs, The patient lives with family. - Family history:: not pertinent. Screenin:54 Abuse screen: Denies threats or abuse. Denies injuries from another. Nutritional ic1 screening: No deficits noted. Tuberculosis screening: No symptoms or risk factors identified. Fall Risk Fall in past 12 months (25 points). Gait- Normal/Bed Rest/Wheelchair (0 pts) Mental Status- Oriented to own ability (0 pts). Exposure risk/Travel Screening: None identified. Assessment: 09:54 General: Appears uncomfortable, Behavior is calm, cooperative. Pain: Complains of pain ic1 in face and right leg. Pain: Pain currently is 9 out of 10 on a pain scale. 10:35 Reassessment: Pt transported to CT via stretcher. In NAD. ic1 10:48 Reassessment: Pt returned back to room via stretcher from CT. On cont monitoring. ic1 Denies distress at this time. Bed in low, locked position. Call light left within reach. Vital Signs: 09:35 BP 143 / 97; Pulse 66; Resp 18; Temp 97.7; Pulse Ox 96% on R/A; Weight 128.82 kg; ww Height 6 ft. 2 in. (187.96 cm); Pain 10/10; 09:53 BP 133 / 78; Pulse 63; Resp 18; Pulse Ox 97% on R/A; ic1 11:19 BP 123 / 84; Pulse 70; Resp 18; Pulse Ox 97% on R/A; ic1 09:35 Body Mass Index 36.46 (128.82 kg, 187.96 cm) ED Course: 09:30 Patient arrived in ED. am2 09:41 Triage completed. ww 09:41 Arm band placed on left wrist. 09:46 Crissy Bowens MD is Attending Physician. ky2 09:54 Patient has correct armband on for positive identification. Bed in low position. Call ic1 light in reach. Side rails up X2. Warm blanket given. 10:42 CT Traumagram (Head C Spine CAP wo con) In Process Unspecified. EDMS Administered Medications: 10:25 Drug: Ketorolac 60 mg Route: IM; Site: right gluteus; ic1 Outcome: 11:12 Discharge ordered by . [facility] 11:20 Discharged to home via wheelchair, with family. ic1 11:20 Condition: stable 11:20 Discharge instructions given to patient, Instructed on discharge instructions, follow up and referral plans. Demonstrated understanding of instructions, follow-up care, medications, Prescriptions given X 2. 11:32 Patient left the ED. ic1 Signatures: Dispatcher [employer] EDMS Christen Silva Crissy Rashid MD MD kyYolanda Tubbs, RN RN Goldie Miller RN RN ic1 Corrections: (The following items were deleted from the chart) 10:57 10:48 Reassessment: Pt returned back to room via stretcher from CT. On cont monitoring. ic1 Denies distress at this time. ic1
--- NOTE | 2021-08-21 11:12 | EDPHYS ---
Physician Documentation [facility] Name: Vanna Swan Age: 51 yrs Sex: Female : 1970 Arrival Date: 08/21/2021 Time: 09:30 Bed 15 Private MD: ED Physician Crissy Bowens HPI: 08/21 10:31 This 51 yrs old Black Female presents to ER via Wheelchair with complaints of Headache, ma2 Back Pain, Fall Injury. 10:31 This 51 yrs old Black Female presents to ER via Wheelchair with complaints of Headache, ma2 Back Pain, Fall Injury. 10:31 This 51 yrs old Black Female presents to ER via Wheelchair with complaints of Headache, ma2 Back Pain, Fall Injury. 10:31 Onset: The symptoms/episode began/occurred gradually, 1 week(s) ago. Onset: The ma2 symptoms/episode began/occurred suddenly, 2 day(s) ago. Severity of symptoms: At its worst the pain was mild, in the emergency department the pain is unchanged. Patient here with left flank pain, headache neck pain, s/p fall 2 days ago, she was undergoing a procedure at the GI center when she fell off the stretcher . 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 - Social history:: Smoking status: Patient reports the use of cigarette tobacco products, smokes one-half pack cigarettes per day, Patient/guardian denies using alcohol, street drugs, The patient lives with family. - Family history:: not pertinent. ROS: 10:31 Constitutional: Negative for fever, chills, and weight loss. ma2 10:31 All other systems are negative. Exam: 10:31 Constitutional: This is a well developed, well nourished patient who is awake, alert, ma2 and in no acute distress. Head/Face: Normocephalic, atraumatic. Eyes: Pupils equal round and reactive to light, extra-ocular motions intact. Lids and lashes normal. Conjunctiva and sclera are non-icteric and not injected. Cornea within normal limits. Periorbital areas with no swelling, redness, or edema. ENT: Nares patent. No nasal discharge, no septal abnormalities noted. Tympanic membranes are normal and external auditory canals are clear. Oropharynx with no redness, swelling, or masses, exudates, or evidence of obstruction, uvula midline. Mucous membranes moist. Neck: Trachea midline, no thyromegaly or masses palpated, and no cervical lymphadenopathy. Supple, full range of motion without nuchal rigidity, or vertebral point tenderness. No Meningismus. Chest/axilla: Normal chest wall appearance and motion. Nontender with no deformity. No lesions are appreciated. Cardiovascular: Regular rate and rhythm with a normal S1 and S2. No gallops, murmurs, or rubs. Normal PMI, no JVD. No pulse deficits. Respiratory: Lungs have equal breath sounds bilaterally, clear to auscultation and percussion. No rales, rhonchi or wheezes noted. No increased work of breathing, no retractions or nasal flaring. Abdomen/GI: Soft, non-tender, with normal bowel sounds. No distension or tympany. No guarding or rebound. No evidence of tenderness throughout. Back: There is left flank superficial abrasion, otherwise no spinal tenderness. No costovertebral tenderness. Full range of motion. Skin: Warm, dry with normal turgor. Normal color with no rashes, no lesions, and no evidence of cellulitis. MS/ Extremity: Pulses equal, no cyanosis. Neurovascular intact. Full, normal range of motion. Neuro: Awake and alert, GCS 15, oriented to person, place, time, and situation. Cranial nerves II-XII grossly intact. Motor strength 5/5 in all extremities. Sensory grossly intact. Cerebellar exam normal. Normal gait. Vital Signs: 09:35 BP 143 / 97; Pulse 66; Resp 18; Temp 97.7; Pulse Ox 96% on R/A; Weight 128.82 kg; ww Height 6 ft. 2 in. (187.96 cm); Pain 10/10; 09:53 BP 133 / 78; Pulse 63; Resp 18; Pulse Ox 97% on R/A; ic1 11:19 BP 123 / 84; Pulse 70; Resp 18; Pulse Ox 97% on R/A; ic1 09:35 Body Mass Index 36.46 (128.82 kg, 187.96 cm) ww MDM: 09:46 Patient medically screened. ma2 10:31 Differential diagnosis:. ma2 11:11 Data reviewed: vital signs, nurses notes, EMS record. Counseling: I had a detailed ma2 discussion with the patient and/or guardian regarding: the historical points, exam findings, and any diagnostic results supporting the discharge/admit diagnosis, the presence of at least one elevated blood pressure reading (>120/80) during this emergency department visit, the need for outpatient follow up. Counseling: I had a detailed discussion with the patient and/or guardian regarding: lab results, radiology results. Response to treatment: the patient's symptoms have markedly improved after treatment. 08/21 10:16 Order name: CT Traumagram (Head C Spine CAP wo con); Complete Time: 11:11 ma2 Administered Medications: 10:25 Drug: Ketorolac 60 mg Route: IM; Site: right gluteus; ic1 Disposition Summary: 08/21/21 11:12 Discharge Ordered Location: Home ma2 Condition: Stable ma2 Diagnosis - Contusion of lower back and pelvis ma2 Followup: ma2 - With: Private Physician - When: Tomorrow - Reason: Recheck today's complaints, Continuance of care Discharge Instructions: - Discharge Summary Sheet ma2 - Contusion, [id number] ma2 Forms: - Medication Reconciliation Form ma2 - Thank You Letter ma2 - Antibiotic Education ma2 - Prescription Opioid Use ma2 Prescriptions: - Cyclobenzaprine 10 mg Oral Tablet - take 1 tablet by ORAL route every 8 hours As needed; 30 tablet; Refills: 0, ma2 Product Selection Permitted - Diclofenac Sodium 75 mg Oral Tablet Sustained Release - take 1 tablet by ORAL route 2 times per day; 30 tablet; Refills: 0, Product ma2 Selection Permitted Signatures: Dispatcher [employer] EDMS Crissy Bowens MD MD ma2 Yolanda Davila RN RN ww Goldie Miller RN RN ic1 Corrections: (The following items were deleted from the chart) 10:35 10:31 Constitutional: This is a well developed, well nourished patient who is awake, ma2 alert, and in no acute distress. Head/Face: Normocephalic, atraumatic. Eyes: Pupils equal round and reactive to light, extra-ocular motions intact. Lids and lashes normal. Conjunctiva and sclera are non-icteric and not injected. Cornea within normal limits. Periorbital areas with no swelling, redness, or edema. ENT: Nares patent. No nasal discharge, no septal abnormalities noted. Tympanic membranes are normal and external auditory canals are clear. Oropharynx with no redness, swelling, or masses, exudates, or evidence of obstruction, uvula midline. Mucous membranes moist. Neck: Trachea midline, no thyromegaly or masses palpated, and no cervical lymphadenopathy. Supple, full range of motion without nuchal rigidity, or vertebral point tenderness. No Meningismus. Chest/axilla: Normal chest wall appearance and motion. Nontender with no deformity. No lesions are appreciated. Cardiovascular: Regular rate and rhythm with a normal S1 and S2. No gallops, murmurs, or rubs. Normal PMI, no JVD. No pulse deficits. Respiratory: Lungs have equal breath sounds bilaterally, clear to auscultation and percussion. No rales, rhonchi or wheezes noted. No increased work of breathing, no retractions or nasal flaring. Abdomen/GI: Soft, non-tender, with normal bowel sounds. No distension or tympany. No guarding or rebound. No evidence of tenderness throughout. Back: No spinal tenderness. No costovertebral tenderness. Full range of motion. Skin: Warm, dry with normal turgor. Normal color with no rashes, no lesions, and no evidence of cellulitis. MS/ Extremity: Pulses equal, no cyanosis. Neurovascular intact. Full, normal range of motion. Neuro: Awake and alert, GCS 15, oriented to person, place, time, and situation. Cranial nerves II-XII grossly intact. Motor strength 5/5 in all extremities. Sensory grossly intact. Cerebellar exam normal. Normal gait. ma2
[2021-08-21 11:38] VITALS: TEMP 97.7
[2021-08-21 11:39] VITALS: O2SAT 97
[2021-08-21 11:41] VITALS: BP 123/84
== END 2021-08-21 11:32 | disposition home or self-care (01) ==
LOC: ER 09:29
DX: S30.0XXA Contusion of lower back and pelvis, initial encounter (principal); W17.89XA Other fall from one level to another, initial encounter; Y92.538 Other ambulatory health services establishments as the place of occurrence of the external cause; I10 Essential (primary) hypertension; F17.210 Nicotine dependence, cigarettes, uncomplicated
CPT/HCPCS: 70450; 71250; 72125; 96372; 99283

== ENCOUNTER 2021-09-21 08:43 | Emergency (ER) | payer OTHER ==
--- OUTSIDE RECORDS SUMMARY | 2021-09-21 08:47 | XMS REPORT | Continuity of Care Document ---
:1970 Author Organization [facility] t Address [address] [place] [address] Care Team Providers Name Role Phone LYSSA BAER JR Primary Care Physician Unavailable DANY TEJADA Attending Clinician Unavailable ASIYA Attending Clinician Unavailable DANY TEJADA Admitting Clinician Unavailable Payers Payer Name Policy Type Policy Number Effective Date Expiration Date S ource UNITED MEDICARE [id number] 2020 O 00:00:00 [facility] STAR [id number] 2019 PLAN 00:00:00 Problems This patient has no known problems. Allergies, Adverse Reactions, Alerts Allergy Allergy Status Severity Reaction(s) Onset Inactive Treating Comm ents Source Name Type Date Date Clinician NO KNOWN Allergy Active [facility] Medications This patient has no known medications. [...] ID 2021-05-22 Inpatient ER MARISEL TEJADA Gastro [id number] [facility] 11:27:13 LAMIN 2021-04-29 2021-04-29 Outpatient EL MARISEL BRADEN [facility] [id number] [facility] 00:00:00 00:00:00 VALE 2021-04-19 2021-04-19 Outpatient [facility] [id number] [facility] 00:40:00 23:59:00 [facility] Results Test Description Test Time Test Comments Results Result [facility] e Comments TISSUE EXAM 2021-04-27 Surgical Pathology 13:15:38 Report Case: [id number] Authorizing Provider: Yamilex Cota MD Collected: 04/22/2021 10:18 AM Ordering Location: [facility] PERIOPERATIVE Received: 04/22/2021 11:00 AM SERVICES Pathologist: Amaya Peraza MD Specimen: Gallbladder GALLBLADDER, CHOLECYSTECTOMY:- CHRONIC CHOLECYSTITIS- CHOLELITHIASIS- CHOLESTEROLOSIS Signing Pathologist Direct Phone Line: [phone] ally signed by Amaya Peraza MD on 04/27/2021 at 1:15 [id number] asisGallbladderPerform ed.[facility], Department of Pathology, [address] [place] [id number], [facility], [facility] of [facility], [address] [place] [id number], [facility], Department of Pathology, [address] [place] [id number], Cndanxwh fresh labeled the patient's name, accession number [...] thick and displays multiple embedded black calculi. Marketing Reporting Analyst sections are submitted in A1-A2, with the [...] GFR IS NOT APPLICABLE FOR DIALYSIS PATIENTS. Clinic Manager GEETA - KIMBER FCBC (HEMOGRAM ONLY)2021-04-24 07:03:46 [...] WBC 0-0 (BEAKER) (test code = 413) [id number] 07:25:27 Test Item Value Reference Range Interpretation Comments PHOSPHORUS (BEAKER) (test code = 2.5 mg/dL 2.3-4.7 604) Clinic Manager ID - GLYNN [id number] 07:25:26 Test Item Value Reference Range Interpretation Comments MAGNESIUM (BEAKER) (test code = 1.9 mg/dL 1.6-2.6 627) Clinic Manager ID - GLYNN MCOMPREHENSIVE METABOLIC [id number] 07:25:25 Test Item Value Reference Range Interpretation [...] S NOT APPLICABLE FOR DIALYSIS PATIEN TS. Clinic Manager ID - GLYNN MCBC (HEMOGRAM ONLY)2021-04-23 06:17:56 [...] (BEAKER) (test code = 413) COMPREHENSIVE METABOLIC [id number] 05:27:00 Test Item Value Reference Range Interpretation [...] S NOT APPLICABLE FOR DIALYSIS PATIEN TS. Clinic Manager ID - PAZ [id number] 05:27:00 Test Item Value Reference Range Interpretation Comments MAGNESIUM (BEAKER) (test code = 1.9 mg/dL 1.6-2.6 627) Clinic Manager ID - PAZ [id number] 05:27:00 Test Item Value Reference Range Interpretation Comments PHOSPHORUS (BEAKER) (test code = 3.3 mg/dL 2.3-4.7 604) Clinic Manager ID - PAZ LCBC (HEMOGRAM ONLY)2021-04-22 04:50:00 [...] 0-0 (BEAKER) (test code = 413) SCREEN, [id number] 07:38:00 Test Item Value Reference Range Interpretation Comments TEST URINE (BEAKER) (test Negative code = 583) [id number] 07:13:00 Test Item Value Reference Range Interpretation Comments MAGNESIUM (BEAKER) (test code = 1.8 mg/dL 1.6-2.6 627) Clinic Manager ID - GLYNN [id number] 07:13:00 Test Item Value Reference Range Interpretation Comments PHOSPHORUS (BEAKER) (test code = 3.5 mg/dL 2.3-4.7 604) Clinic Manager ID - GLYNN MCOMPREHENSIVE METABOLIC [id number] 07:13:00 Test Item Value Reference Range Interpretation [...] 347) EGFR (BEAKER) (test 62 mL/min/1.73 ESTIMA SNATI GFR IS code = 1092) sq m NOT ACCURATE CREATININE CLEARANCE IN PREDICTING GLOMERULAR FILTRATION RATE . ESTIMATED GFR I S NOT APPLICABLE FOR DIALYSIS PATIEN TS. Clinic Manager ID - GLYNN MSpecimen slightly ictericCBC (HEMOGRAM [...] 0-0 (BEAKER) (test code = 413) FL, [id number] 12:19:00Reason for exam:->abnormal imagery [facility] 1970 Sex: FFluoroscopic unit utilized for a procedure performed in the OR. No interpretation was requested. Refer to the operative report for findings. Refer to PACS for patient radiation dose information.COMPREHENSIVE METABOLIC [id number] 06:27:00 Test Item Value Reference Range Interpretation [...] S NOT APPLICABLE FOR DIALYSIS PATIEN TS. Clinic Manager ID - MADISONSALVADOR [id number] 06:27:00 Test Item Value Reference Range Interpretation Comments MAGNESIUM (BEAKER) (test code = 1.9 mg/dL 1.6-2.6 627) Clinic Manager ID - MADISONSALVADOR [id number] 06:27:00 Test Item Value Reference Range Interpretation Comments PHOSPHORUS (BEAKER) (test code = 3.9 mg/dL 2.3-4.7 604) Clinic Manager ID - PAZ LCBC (HEMOGRAM ONLY)2021-04-20 05:44:00 [...] 0-0 (BEAKER) (test code = 413) SARS-COV2/RT-PCR ([facility])2021-04-20 02:44:00 Test Item Value Reference Range Interpretation Comments SARS-COV2/RT-PCR (test code = Negative Negative [id number]) Negative result for this test determines that [...] the [place] SARS-CoV-2 assay.Fact Sheet for Healthcare Providers:https://www.[employer].CustEx/perry/RT SARS-CoV-2 HCP Fact Sheet 51- 174284.pdfFact Sheet for Healthcare Patients:https://www.[employer].CustEx/perry/RT SARS-CoV-2 Patient Fact Sheet EN 51-981590W9.pdfMR, ABDOMEN, [id number] 11:04:00Unlisted Reason for Exam - Click Yes and Enter Reason Below->No [facility] 1970 Sex: FFINAL REPORT [...] Nicole Verified Date/Time: 04/19/2021 11:04:09 Reading Location: [facility] Diagnostic Imaging Reading Room - [place] [address] HEPATITIS PANEL, [id number] 08:02:00 Test Item Value Reference Range Interpretation Comments HEPATITIS A IGM ANTIBODY (BEAKER) Nonreactive Nonreactive (test code = 498) HEPATITIS B CORE IGM ANTIBODY Nonreactive Nonreactive (BEAKER) (test code = 645) HEPATITIS C ANTIBODY (BEAKER) Nonreactive Nonreactive (test code = 367) HEPATITIS B SURFACE ANTIGEN (2) Nonreactive Nonreactive (BEAKER) (test code = 2585) Clinic Manager ID - GABRIEL CURINALYSIS W/ REFLEX URINE [id number] 05:17:00 Test Item Value Reference Range Interpretation [...] = 1584) SOURCE(BEAKER) (test code = 2795) Clinic Manager ID - [auto]Clinic Manager ID - [id number] 04:58:00 Test Item Value Reference Range Interpretation Comments LIPASE (BEAKER) (test code = 749) 19 U/L 8-78 Clinic Manager ID - GLYNN MSpecimen slightly ictericC-REACTIVE [id number] 04:58:00 Test Item Value Reference Range Interpretation Comments C-REACTIVE PROTEIN (BEAKER) (test 1.68 mg/dL 0.00-0.50 H code = 676) Clinic Manager ID - GLYNN [id number] 04:58:00 Test Item Value Reference Range Interpretation Comments MAGNESIUM (BEAKER) (test code = 1.8 mg/dL 1.6-2.6 627) Clinic Manager ID - GLYNN [id number] 04:58:00 Test Item Value Reference Range Interpretation Comments PHOSPHORUS (BEAKER) (test code = 2.8 mg/dL 2.3-4.7 604) Clinic Manager ID - GLYNN MCOMPREHENSIVE METABOLIC [id number] 04:58:00 Test Item Value Reference Range Interpretation [...] S NOT APPLICABLE FOR DIALYSIS PATIEN TS. Clinic Manager ID - GLYNN MSpecimen slightly ictericBILIRUBIN, [id number] 04:58:00 Test Item Value Reference Range Interpretation Comments BILIRUBIN DIRECT (BEAKER) (test 1.5 mg/dL 0.1-0.5 H code = 706) Clinic Manager ID - GLYNN MPROTHROMBIN [id number] 04:26:00 Test Item Value Reference Range Interpretation Comments PROTIME (BEAKER) 13.1 seconds 11.9-14.2 (test code = 759) INR (BEAKER) (test 1.01 See_Comment [Automat ed message] code = 370) The system Quill generated this result transmitted ref erence range: [...] (BEAKER) (test code = 2801) U/S, ABDOMINAL, [id number] 03:10:00Abdomen limited area? Add comment if clarification is needed.->Gall BladderReason for exam:->ch oledocholithiasisShould this be performed at the bedside?->Yes [facility] : 1970 Sex: FFINAL REPORT [...]
--- NOTE | 2021-09-21 09:16 | ER ---
Nurse's Notes [facility] Name: Vanna Swan Age: 51 yrs Sex: Female : 1970 Arrival Date: 09/21/2021 Time: 08:45 Bed 5 Private MD: Diagnosis: Pain in left shoulder-chronic;Low back pain Presentation: 09/21 08:53 Chief complaint: Patient states: Left shoulder, neck and lower back pain since August. States was having a procedure done at the GI center and states during procedure was 'dropped on the floor' and since then has been having problems. Coronavirus screen: Vaccine status: Patient reports receiving the 2nd dose of the covid vaccine. Client denies travel out of the [place] in the last 14 days. Ebola Screen: Patient negative for fever greater than or equal to 101.5 degrees Fahrenheit, and additional compatible Ebola Virus Disease symptoms. Initial Sepsis Screen: Does the patient meet any 2 criteria? No. Patient's initial sepsis screen is negative. Does the patient have a suspected source of infection? No. Patient's initial sepsis screen is negative. Risk Assessment: Do you want to hurt yourself or someone else? Patient reports no desire to harm self or others. Onset of symptoms was August 19, 2021. 08:53 Method Of Arrival: Ambulatory vg1 08:53 Acuity: AILEEN 3 vg1 Triage Assessment: 08:55 General: Appears uncomfortable, Behavior is calm, cooperative. Pain: Complains of pain vg1 in neck, Left shoulder, and lower back Pain currently is 10 out of 10 on a pain scale. Musculoskeletal: Reports numbness and tingling to CLARE arms. Historical: - Allergies: 08:55 No Known Allergies; vg1 - Home Meds: 08:55 lisinopril Oral [Active]; pantoprazole Oral [Active]; vg1 - PMHx: 08:55 Colitis; Hypertension; Irregular heart rate; Ulcers; vg1 - PSHx: 08:55 neck injections; uterine ablation; vg1 - Immunization history:: Client reports receiving the 2nd dose of the Covid vaccine. - Social history:: Smoking status: Patient reports the use of cigarette tobacco products, smokes one-half pack cigarettes per day. Screenin:07 Abuse screen: Denies threats or abuse. Denies injuries from another. Nutritional jg9 screening: No deficits noted. Tuberculosis screening: No symptoms or risk factors identified. Fall Risk None identified. Assessment: 09:08 General: Appears in no apparent distress. Behavior is calm, Patient talking on phone jg9 and continued to remain on the phone as I stood in room to perform assessment, patient looked up once and asked, "what you want". . 09:14 Reassessment: Pt left AMA. This RN went into the room to assess pt for treatment. While ic1 speaking on the phone, pt stated to me, "Elsie just leave". Pt informed that she would have to sign a form. Pt left without signing. In NAD. Vital Signs: 08:53 BP 140 / 98; Pulse 98; Resp 16; Temp 97.3; Pulse Ox 100% ; Weight 128.82 kg; Height 6 vg1 ft. 2 in. (187.96 cm); Pain 10/10; 08:53 Body Mass Index 36.46 (128.82 kg, 187.96 cm) vg1 ED Course: 08:45 Patient arrived in ED. as 08:55 Triage completed. vg1 08:55 Arm band placed on. vg1 08:56 Cici Rodriguez FNP-C is [facility]. kb 08:56 Davis Anthony MD is Attending Physician. kb Administered Medications: No medications were administered Outcome: 09:15 Patient left the ED. ic1 09:18 Discharge ordered by . kb 09:18 Patient left the ED. kb Signatures: Ccii Rodriguez FNP-C FNP-Viky Ware Victoria RN RN vg1 Yazmin Mayfield RN RN jg9 Goldie Miller RN RN ic1 Corrections: (The following items were deleted from the chart) 08:57 08:53 BP 150 / 103; Pulse 98bpm; Resp 16bpm; Pulse Ox 100%; Temp 97.3F; 128.82 kg; vg1 Height 6 ft. 2 in.; BMI: 36.4; Pain 10/10; vg1
--- NOTE | 2021-09-21 09:16 | EDPHYS ---
Physician Documentation [facility] Name: Vanna Swan Age: 51 yrs Sex: Female : 1970 Arrival Date: 09/21/2021 Time: 08:45 Bed 5 Private MD: Davis Smith HPI: 09/21 09:14 This 51 yrs old Black Female presents to ER via Ambulatory with complaints of Shoulder kb Pain, Neck Pain, >24Hrs Old, Low Back Pain. 09:14 The patient or guardian complains of decreased range of motion, pain, tenderness. left kb shoulder. Context: The problem was sustained at an office, resulted from from a chronic condition, a fall, The patient experiences decreased range of motion, The patient reports no obvious deformity. Onset: The symptoms/episode began/occurred 1 month(s) ago. Modifying factors: the symptoms are alleviated by nothing. The symptoms are aggravated by movement. Associated signs and symptoms: Pertinent positives: severe pain. Severity of symptoms: At their worst the symptoms were moderate, in the emergency department the symptoms are unchanged. Treatment prior to arrival includes: no previous treatment. The patient has not experienced similar symptoms in the past. The patient has been recently seen by a physician:. Pt reports left neck, left shoulder and low back pain that started on 08/19/21 after falling from a surgical bed. Has been seen multiple times for the pain, but nothing has been found. States she was having an injection into shoulder at time of fall for chronic pain. Historical: - Allergies: 08:55 No Known Allergies; vg1 - Home Meds: 08:55 lisinopril Oral [Active]; pantoprazole Oral [Active]; vg1 - PMHx: 08:55 Colitis; Hypertension; Irregular heart rate; Ulcers; vg1 - PSHx: 08:55 neck injections; uterine ablation; vg1 - Immunization history:: Client reports receiving the 2nd dose of the Covid vaccine. - Social history:: Smoking status: Patient reports the use of cigarette tobacco products, smokes one-half pack cigarettes per day. ROS: 09:07 Constitutional: Negative for fever, chills, and weight loss. kb 09:07 Neck: Positive for pain with movement, pain at rest, tenderness, of the left posterior aspect of neck. 09:07 Back: Positive for pain at rest, pain with movement, of the lumbar area. 09:07 MS/extremity: Positive for pain, of the anterior aspect of left shoulder and posterior aspect of left shoulder. 09:07 All other systems are negative. Exam: 09:11 Constitutional: This is a well developed, well nourished patient who is awake, alert, kb and in no acute distress. Head/Face: Normocephalic, atraumatic. ENT: Moist Mucous membranes Respiratory: Respirations even and unlabored. No increased work of breathing. Talking in full sentences Skin: Warm, dry with normal turgor. Normal color. Neuro: Awake and alert, GCS 15, oriented to person, place, time, and situation. Moves all extremities. Normal gait. Psych: Awake, alert, with orientation to person, place and time. Behavior, mood, and affect are within normal limits. 09:11 Neck: External neck: tenderness, that is mild, of the left posterior aspect of neck, C-spine: appears grossly normal. 09:11 Back: pain, that is moderate, of the low back area, ROM is normal, vertebral tenderness, is appreciated at lumbar spine. 09:11 Musculoskeletal/extremity: Extremities: grossly normal except: noted in the posterior aspect of left shoulder and anterior aspect of left shoulder: pain, tenderness, ROM: limited active range of motion due to pain, Circulation is intact in all extremities. Sensation intact. Vital Signs: 08:53 BP 140 / 98; Pulse 98; Resp 16; Temp 97.3; Pulse Ox 100% ; Weight 128.82 kg; Height 6 vg1 ft. 2 in. (187.96 cm); Pain 10/10; 08:53 Body Mass Index 36.46 (128.82 kg, 187.96 cm) vg1 MDM: 08:58 Patient medically screened. kb 09:03 Data reviewed: vital signs, nurses notes. Data reviewed: old medical records, x-rays kb were done after fall on 08/19/21 that showed nothing acute. CT Head, c-spine, CAP was done on 08/21/21 that showed nothing acute. Data interpreted: Pulse oximetry: on room air is 100 %. Interpretation: normal. 09:06 Counseling: I had a detailed discussion with the patient and/or guardian regarding: the kb historical points, exam findings, and any diagnostic results supporting the discharge/admit diagnosis, the need for outpatient follow up, a family practitioner, to return to the emergency department if symptoms worsen or persist or if there are any questions or concerns that arise at home. ED course: Pt educated that she will have to follow up with PCP to have MRI ordered and then scheduled. Offered medications for pain and a muscle relaxer. Pt states "Let me see Dr Anthony." Dr Anthony notified. 09:10 ED course: Pt walked out of ED on telephone with steady gait. Pt did not wait for Dr nicky Anthony to see her as requested. . Administered Medications: No medications were administered Disposition: 12:13 Co-signature as Attending Physician, Davis Anthony MD I agree with the assessment and giselle plan of care. Disposition Summary: 09/21/21 09:18 Discharge Ordered Location: Home(09/21/21 09:18) Condition: Stable(09/21/21 09:18) kb Diagnosis - Pain in left shoulder - chronic kb - Low back pain kb Followup: kb - With: Private Physician - When: 2 - 3 days - Reason: Recheck today's complaints, Continuance of care, Re-evaluation by your physician Followup: kb - With: Emergency Department - When: As needed - Reason: Worsening of condition Discharge Instructions: - Discharge Summary Sheet kb - Musculoskeletal Pain kb Forms: - Medication Reconciliation Form kb - Thank You Letter kb - Antibiotic Education kb - Prescription Opioid Use kb Signatures: Cici Rodriguez, EXTRUSION PRESS SUPERVISOR-C EXTRUSION PRESS SUPERVISOR-Davis Plunkett MD MD cha Garcia, Victoria, RN RN vg1 Goldie Miller RN RN ic1 Corrections: (The following items were deleted from the chart) 09:07 09:06 ED course: Pt educated that she will have to follow up with PCP to have MRI kb ordered and then scheduled. Offered medications for pain and a muscle relaxer. Pt states "Let me see Dr Anthony.". kb 09:14 09:03 Data reviewed: old medical records, kb kb : 09:15 Home ic1 kb 16 09:15 Stable ic1 kb
[2021-09-21 10:09] VITALS: BP 140/98; TEMP 97.3; O2SAT 100
== END 2021-09-21 09:18 | disposition home or self-care (01) ==
LOC: ER 08:43
DX: M25.512 Pain in left shoulder (principal); I10 Essential (primary) hypertension; F17.210 Nicotine dependence, cigarettes, uncomplicated; W19.XXXA Unspecified fall, initial encounter; Y92.89 Other specified places as the place of occurrence of the external cause
CPT/HCPCS: 99281

== ENCOUNTER 2022-05-27 07:57 | Emergency (ER) | payer OTHER ==
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
[2022-05-27] MEDS ORDERED: FENTANYL CITR 100 MCG/2 ML ONE ×2 (09:09→10:47)
[2022-05-27] MEDS ORDERED: ONDANSETRON 4 MG/2 ML VIAL ONE (09:09)
[2022-05-27 09:17] LABS: Absolute Lymphocytes (CBC) 1.9 K/uL (0.7-4.9); Hematocrit 39.6 % (36.0-45.0); Lymphocytes % 26.3 % (15.3-44.8); MCV 83.5 fL (80-100); MPV 6.9 fL (7.6-11.3); RBC Red Blood Cell Count 4.74 M/uL (3.86-4.86)
[2022-05-27 10:07] LABS: Albumin 3.9 g/dL (3.4-5.0); Bilirubin Total 1.4 mg/dL (0.2-1.0); Potassium 4.1 mmol/L (3.5-5.1); Protein, Total 8.3 g/dL (6.4-8.2)
[2022-05-27 11:18] LABS: Urine Blood Negative (Negative); Urine Glucose Negative (Negative); Urine Protein Negative (Negative); Urine Specific Gravity 1.015 (1.005-1.030)
[2022-05-27] MEDS ORDERED: NA CHLORIDE 0.9% 500 ML ONE ×2 (11:25→12:17)
--- NOTE | 2022-05-27 11:25 | RAD REPORT ---
EXAM DESCRIPTION: CT - Abdomen Pelvis W Contrast - 05/27/2022 11:03 am CLINICAL HISTORY: Abdominal pain/constipation COMPARISON: 2020 TECHNIQUE: Computed axial tomography of the abdomen pelvis was obtained. 100 cc Isovue-300 was admin istered intravenously. Oral contrast was given All CT scans are performed using dose optimization technique as appropriate and may include automated exposure control or mA/KV adjustment according to patient size. FINDINGS: The liver, spleen, pancreas, adrenal and kidneys appear unremarkable. Cholecystectomy There is no evidence of diverticulitis. Rectum is mildly distended stool. Liquid stool is present throughout transverse and right colon. Small bowel caliber is normal. Wall thickness normal Postsurgical changes involve the stomach. Small hiatal hernia IMPRESSION: Rectum is mildly distended with stool
[2022-05-27 11:38] LABS: Urine Mucus Slight /HPF (None Seen); Urine RBC <5 /HPF (None Seen)
[2022-05-27] MEDS ORDERED: BISACODYL 10 MG RECTAL SUPP ONE (12:17)
[2022-05-27] MEDS ORDERED: LACTULOSE 20 GM/30 ML UCUP ONE (12:20)
--- NOTE | 2022-05-27 13:07 | EDPHYS ---
Physician Documentation [facility] Name: Vanna Swan Age: 52 yrs Sex: Female : 1970 Arrival Date: 05/27/2022 Time: 07:58 Bed 4 Private MD: ED Physician Shyam Worley HPI: 05/27 08:40 This 52 yrs old Black Female presents to ER via Ambulatory with complaints of cp Constipation, Leg Pain, Rectal Bleeding. 08:40 The patient presents to the emergency department with bleeding from the rectum/anus, cp that is mild, pain in the rectal area, that is moderate, constipation with last BM 2 weeks ago. 08:40 Associate signs and symptoms: Pertinent negatives: abdominal pain, diarrhea, fever, cp vomiting. 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 - Social history:: Smoking status: Patient reports the use of cigarette tobacco products, smokes one-half pack cigarettes per day. ROS: 08:45 Constitutional: Negative for body aches, chills, fever, poor PO intake. cp 08:45 Eyes: Negative for injury, pain, redness, and discharge. cp 08:45 ENT: Negative for drainage from ear(s), ear pain, sore throat, difficulty swallowing, difficulty handling secretions. 08:45 Cardiovascular: Negative for chest pain, edema, palpitations. 08:45 Respiratory: Negative for cough, shortness of breath, wheezing. 08:45 Abdomen/GI: Positive for constipation, rectal pain, rectal bleeding, Negative for abdominal pain, vomiting, diarrhea. 08:45 : Positive for difficulty urinating. 08:45 Neuro: Negative for altered mental status, headache, numbness, weakness. 08:45 All other systems are negative. Exam: 08:50 Constitutional: The patient appears in no acute distress, alert, awake, non-toxic, well cp developed, well nourished, uncomfortable. 08:50 Head/Face: Normocephalic, atraumatic. cp 08:50 Eyes: Periorbital structures: appear normal, Conjunctiva: normal, no exudate, no cp injection, Sclera: no appreciated abnormality, Lids and lashes: appear normal, bilaterally. 08:50 ENT: External ear(s): are unremarkable, Nose: is normal, Mouth: Lips: moist, Oral mucosa: pink and intact, moist, Posterior pharynx: Airway: no evidence of obstruction, patent. 08:50 Chest/axilla: Inspection: normal. 08:50 Cardiovascular: Rate: normal, Rhythm: regular, Edema: is not appreciated, JVD: is not appreciated. 08:50 Respiratory: the patient does not display signs of respiratory distress, Respirations: normal, no use of accessory muscles, no retractions, labored breathing, is not present, Breath sounds: are clear throughout, no decreased breath sounds, no stridor, no wheezing. 08:50 Abdomen/GI: Inspection: obese Bowel sounds: active, all quadrants, Palpation: abdomen is soft and non-tender, in all quadrants, Rectal exam: Stool: brown, guaiac negative, hemorrhoid(s), external, without bleeding, without inflammation, without thrombosis, fecal impaction, is not appreciated. 08:50 Back: pain, that is moderate, of the low back, ROM is normal. 08:50 Neuro: Orientation: to person, place \T\ time. Mentation: is normal, Motor: moves all fours, strength is normal, Sensation: is normal. Vital Signs: 08:17 BP 121 / 87; Pulse 80; Resp 17; Temp 98.4; Pulse Ox 100% on R/A; Weight 116.12 kg; jl7 Height 6 ft. 2 in. (187.96 cm); Pain 10/10; 08:37 BP 105 / 68; Pulse 77; Resp 18; Pulse Ox 100% on R/A; Pain 10/10; mb9 09:45 BP 103 / 66; Pulse 72; Resp 18; Pulse Ox 100% on R/A; mb9 11:00 BP 131 / 86; Pulse 71; Resp 16; Pulse Ox 100% on R/A; mb9 12:00 BP 117 / 78; Pulse 64; Resp 16; Pulse Ox 100% on R/A; mb9 08:17 Body Mass Index 32.87 (116.12 kg, 187.96 cm) jl7 MDM: 08:24 Patient medically screened. cp 09:00 Differential diagnosis: hemorrhoids, fissure, abscess, constipation, bowel obstruction, cp fecal impaction. 13:05 Data reviewed: vital signs, nurses notes, lab test result(s), radiologic studies, CT cp scan. 13:05 Counseling: I had a detailed discussion with the patient and/or guardian regarding: the cp historical points, exam findings, and any diagnostic results supporting the discharge/admit diagnosis, lab results, radiology results, to return to the emergency department if symptoms worsen or persist or if there are any questions or concerns that arise at home. Response to treatment: the patient's symptoms have mildly improved after treatment, and as a result, I will discharge patient. 05/27 08:35 Order name: CBC with Diff; Complete Time: 10:22 05/27 10:22 Interpretation: Normal except: MPV 6.9. cp 05/27 08:35 Order name: CMP; Complete Time: 10:21 cp 05/27 10:21 Interpretation: Normal except: GLUC 115; GFR 70; BILIT 1.4; TP 8.3; GLOB 4.4; A/G 0.9. cp 05/27 08:35 Order name: Lipase; Complete Time: 10:21 cp 05/27 10:22 Interpretation: LIP 166; Reviewed. 05/27 08:35 Order name: Urine Microscopic Only; Complete Time: 11:43 cp 05/27 08:35 Order name: CT Abd/Pelvis - PO and IV Contrast; Complete Time: 11:43 cp 05/27 11:43 Interpretation: Report reviewed. 05/27 11:19 Order name: Urine Dipstick-Ancillary; Complete Time: 11:43 EDMS 05/27 08:35 Order name: IV Saline Lock; Complete Time: 09:09 cp 05/27 08:35 Order name: Labs collected and sent; Complete Time: 09:09 cp Administered Medications: 09:19 Drug: fentaNYL (PF) 25 mcg Route: IVP; Site: right upper arm; mb9 09:35 Follow up: Response: No adverse reaction mb9 10:22 Follow up: Response: No adverse reaction mb9 09:19 Drug: Zofran (Ondansetron) 4 mg Route: IVP; Site: right upper arm; mb9 09:36 Follow up: Response: No adverse reaction mb9 10:23 Follow up: Response: No adverse reaction mb9 10:47 Drug: fentaNYL (PF) 25 mcg Route: IVP; Site: right upper arm; mb9 11:20 Follow up: Response: No adverse reaction mb9 11:35 Drug: NS 0.9% 500 ml Route: IV; Rate: bolus; Site: right upper arm; mb9 12:26 Drug: Bisacodyl Suppository 10 mg Route: CT; mb9 13:52 Follow up: Response: No adverse reaction mb9 12:27 Drug: NS 0.9% 500 ml Route: IV; Rate: 125 ml/hr; Site: right upper arm; mb9 13:52 Follow up: Response: No adverse reaction; IV Status: Completed infusion mb9 12:27 Drug: Lactulose 30 grams Volume: 45 ml; Route: PO; mb9 13:00 Follow up: Response: No adverse reaction mb9 Disposition: 14:53 Co-signature as Attending Physician, Shyam Worley MD I agree with the assessment and kdr plan of care. Disposition Summary: 05/27/22 13:06 Discharge Ordered Location: Home cp Problem: new cp Symptoms: have improved cp Condition: Stable cp Diagnosis - Constipation, unspecified cp Followup: cp - With: Private Physician - When: 2 - 3 days - Reason: Recheck today's complaints Discharge Instructions: - Discharge Summary Sheet cp - Constipation, Adult cp Forms: - Medication Reconciliation Form cp - Thank You Letter cp - Antibiotic Education cp - Prescription Opioid Use cp Prescriptions: - Miralax - take 1 application by ORAL route once daily As needed; 1 bottle; Refills: 0, cp Product Selection Permitted Signatures: Dispatcher [employer] EDShyam Odonnell MD MD kdr Calderon, Audri RN RN aa5 Davis Millan PA PA cp Leal, Jahala, RN RN jl7 Mariel Toure RN RN mb9 Corrections: (The following items were deleted from the chart) 09:09 08:35 Urine Test ordered. cp aa5
--- NOTE | 2022-05-27 13:07 | ER ---
Nurse's Notes [facility] Name: Vanna Swan Age: 52 yrs Sex: Female : 1970 Arrival Date: 05/27/2022 Time: 07:58 Bed 4 Private MD: Diagnosis: Constipation, unspecified Presentation: 05/27 08:17 Chief complaint: Patient states: Constipation, last BM 2-3 weeks ago, reports "Tried to jl7 get it moving and stuck finger in there and pulled out a clot last night." "It's hurting so bad got my legs hurting and everything.". Coronavirus screen: At this time, the client does not indicate any symptoms associated with coronavirus-19. Ebola Screen: No symptoms or risks identified at this time. Initial Sepsis Screen: Does the patient meet any 2 criteria? No. Patient's initial sepsis screen is negative. Does the patient have a suspected source of infection? No. Patient's initial sepsis screen is negative. Risk Assessment: Do you want to hurt yourself or someone else? Patient reports no desire to harm self or others. Onset of symptoms was May 08, 2022. Care prior to arrival: None. 08:17 Method Of Arrival: Ambulatory jl7 08:17 Acuity: AILEEN 3 jl7 Triage Assessment: 08:19 General: Appears in no apparent distress. uncomfortable, Behavior is calm, cooperative, jl7 appropriate for age. Pain: Complains of pain in abdomen Pain currently is 10 out of 10 on a pain scale. GI: Reports constipation. 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 - Social history:: Smoking status: Patient reports the use of cigarette tobacco products, smokes one-half pack cigarettes per day. Screenin:00 Abuse screen: Denies threats or abuse. Nutritional screening: No deficits noted. mb9 Tuberculosis screening: No symptoms or risk factors identified. Fall Risk None identified. Assessment: 08:31 General: Appears uncomfortable, Behavior is calm, cooperative, appropriate for age. mb9 Pain: Complains of pain in abdomen Pain currently is 10 out of 10 on a pain scale. Quality of pain is described as heavy, pressure, Pain began 2 weeks ago. Neuro: Level of Consciousness is awake, alert, obeys commands, Oriented to person, place, time, situation, Appropriate for age Speech is normal. Cardiovascular: Heart tones S1 S2 present Rhythm is regular. Respiratory: Airway is patent Respiratory effort is even, unlabored, Respiratory pattern is regular, symmetrical, Breath sounds are clear bilaterally. GI: Abdomen is round Last BM was May 13, 2022. Bowel sounds present X 4 quads. Abdomen is tender to palpation in right lower quadrant Reports constipation, dark colored blood when she wipes or attempts to have a bowel movement. : Reports difficulty urinating and feels she has to push her urine out. EENT: No signs and/or symptoms were reported regarding the EENT system. Derm: Skin is intact, Skin is dry, Skin temperature is warm. Musculoskeletal: Range of motion: intact in all extremities, Reports pain in right foot, left foot, right leg and left leg since 2 weeks ago. 09:22 Reassessment: Called CT to inform them the pt finished her oral contrast. mb9 09:45 General: Appears comfortable, Behavior is calm, cooperative, appropriate for age. Pain: mb9 Complains of pain in abdomen. Neuro: Level of Consciousness is awake, alert, obeys commands, Oriented to person, place, time, situation, Appropriate for age. Cardiovascular: Heart tones S1 S2 present Rhythm is regular. Respiratory: Airway is patent Respiratory effort is even, unlabored, Respiratory pattern is regular, symmetrical. Derm: Skin is intact, Skin is dry, Skin temperature is warm. 11:00 General: Appears comfortable, Behavior is calm, cooperative. Pain: Complains of pain in mb9 abdomen. Neuro: Level of Consciousness is awake, alert, obeys commands, Oriented to person, place, time, situation, Appropriate for age. Cardiovascular: Heart tones S1 S2 present Rhythm is regular. Respiratory: Airway is patent Respiratory effort is even, unlabored, Respiratory pattern is regular, symmetrical. Derm: Skin is intact, Skin is dry, Skin temperature is warm. 12:32 General: Appears comfortable, pt sleeping in bed. Pain: Complains of pain in abdomen. mb9 Neuro: Cardiovascular: Heart tones S1 S2 present Rhythm is regular. Respiratory: Airway is patent Respiratory effort is even, unlabored, Respiratory pattern is regular, symmetrical. GI: Abdomen is round. Derm: Skin is intact, Skin is dry, Skin temperature is warm. 13:21 Reassessment: pt on bedside commode attempting to have a BM. mb9 13:48 Pain: Complains of pain in abdomen. Neuro: Level of Consciousness is awake, alert, mb9 obeys commands, Oriented to person, place, time, situation, Appropriate for age. Respiratory: Airway is patent Respiratory effort is even, unlabored, Respiratory pattern is regular, symmetrical. GI: Last BM was May 27, 2022. at 13:00. Pt stool was brown and solid. Derm: Skin is intact, Skin is dry, Skin temperature is warm. Vital Signs: 08:17 BP 121 / 87; Pulse 80; Resp 17; Temp 98.4; Pulse Ox 100% on R/A; Weight 116.12 kg; jl7 Height 6 ft. 2 in. (187.96 cm); Pain 10/10; 08:37 BP 105 / 68; Pulse 77; Resp 18; Pulse Ox 100% on R/A; Pain 10/10; mb9 09:45 BP 103 / 66; Pulse 72; Resp 18; Pulse Ox 100% on R/A; mb9 11:00 BP 131 / 86; Pulse 71; Resp 16; Pulse Ox 100% on R/A; mb9 12:00 BP 117 / 78; Pulse 64; Resp 16; Pulse Ox 100% on R/A; mb9 08:17 Body Mass Index 32.87 (116.12 kg, 187.96 cm) jl7 ED Course: 07:58 Patient arrived in ED. am2 08:13 Davis Millan PA is PHCP. cp 08:13 Shyam Worley MD is Attending Physician. cp 08:19 Triage completed. jl7 08:19 Arm band placed on right wrist. jl7 08:19 Placed in gown. Bed in low position. Call light in reach. Side rails up X 1. mb9 08:31 Mariel Toure RN is Primary Nurse. mb9 08:45 Served as a compounder during rectal exam. mb9 09:02 Missed attempt(s): 20 gauge in right antecubital area. Bleeding controlled, band aid mb9 applied, catheter tip intact. 09:05 Initial lab(s) drawn, by me, sent to lab. Inserted saline lock: 22 gauge in right upper aa5 arm, using aseptic technique. Blood collected. 11:05 CT Abd/Pelvis - PO and IV Contrast In Process Unspecified. EDMS 13:51 IV discontinued, intact, bleeding controlled, No redness/swelling at site. Pressure mb9 dressing applied. Administered Medications: 09:19 Drug: fentaNYL (PF) 25 mcg Route: IVP; Site: right upper arm; mb9 09:35 Follow up: Response: No adverse reaction mb9 10:22 Follow up: Response: No adverse reaction mb9 09:19 Drug: Zofran (Ondansetron) 4 mg Route: IVP; Site: right upper arm; mb9 09:36 Follow up: Response: No adverse reaction mb9 10:23 Follow up: Response: No adverse reaction mb9 10:47 Drug: fentaNYL (PF) 25 mcg Route: IVP; Site: right upper arm; mb9 11:20 Follow up: Response: No adverse reaction mb9 11:35 Drug: NS 0.9% 500 ml Route: IV; Rate: bolus; Site: right upper arm; mb9 12:26 Drug: Bisacodyl Suppository 10 mg Route: [place]; mb9 13:52 Follow up: Response: No adverse reaction mb9 12:27 Drug: NS 0.9% 500 ml Route: IV; Rate: 125 ml/hr; Site: right upper arm; mb9 13:52 Follow up: Response: No adverse reaction; IV Status: Completed infusion mb9 12:27 Drug: Lactulose 30 grams Volume: 45 ml; Route: PO; mb9 13:00 Follow up: Response: No adverse reaction mb9 Medication: 09:00 VIS not applicable for this client. mb9 Outcome: 13:06 Discharge ordered by . cp 13:50 Discharged to home via wheelchair. mb9 13:50 Condition: stable 13:50 Discharge instructions given to patient, Instructed on discharge instructions, follow up and referral plans. Demonstrated understanding of instructions, follow-up care, medications, Prescriptions given X 1. 13:51 Patient left the ED. mb9 Signatures: Dispatcher [employer] EDMS Kathie Thompson, RN RN aa5 Davis Millan PA PA cp Leal, Jahala RN RN jl7 Christen Silva am2 Mariel Toure RN RN mb9 Corrections: (The following items were deleted from the chart) 11:48 09:37 BP 103 / 66; Pulse 72bpm; Resp 18bpm; Pulse Ox 100% RA; mb9 mb9
[2022-05-27 14:23] VITALS: TEMP 98.4; O2SAT 100
[2022-05-27 14:27] VITALS: BP 117/78
== END 2022-05-27 13:51 | disposition home or self-care (01) ==
LOC: ER 07:57
DX: K59.00 Constipation, unspecified (principal); F17.210 Nicotine dependence, cigarettes, uncomplicated
CPT/HCPCS: 96361; 85025; 36415; 83690; 80053; 74177; 96375; 96374; 99284; Q9967; J3010 ×2; J7040 ×2; J2405; 81003; 81015

== ENCOUNTER 2022-12-24 09:56 | Observation (INO) | payer OTHER ==
--- OUTSIDE RECORDS SUMMARY | 2022-12-24 10:01 | XMS REPORT | Continuity of Care Document ---
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 Scheduled 1970 Screening for malignant [facility] 00:00:00 neoplasm of breast Medical C enter (procedure) [code = 695575241] Future Scheduled 1970 CT Colonography (combo) [facility] 00:00:00 [code = CT Colonography [facility] (combo)] Future Scheduled 1970 Screening for malignant [facility] 00:00:00 neoplasm of colon Medical Ce nter (procedure) [code = 865073461] Future Scheduled 1970 Screening for malignant [facility] 00:00:00 neoplasm of colon Medical Ce nter (procedure) [code = 077660653] Future Scheduled 1970 Screening for malignant [facility] 00:00:00 neoplasm of colon Medical Ce nter (procedure) [code = 849656457] Future Scheduled 1970 Screening for malignant [facility] 00:00:00 neoplasm of colon Medical Ce nter (procedure) [code = 917926427] Future Scheduled 1970 Sigmoidoscopy [code = [facility] S[facility]oscopy] Medical Cente r Future Scheduled 1970 Screening for malignant [facility] 00:00:00 neoplasm of breast Medical C enter (procedure) [code = 012948202] Future Scheduled 1970 CT Colonography (combo) [facility] 00:00:00 [code = CT Colonography [facility] (combo)] Future Scheduled 1970 Screening for malignant [facility] 00:00:00 neoplasm of colon Medical Ce nter (procedure) [code = 743730723] Future Scheduled 1970 Screening for malignant [facility] 00:00:00 neoplasm of colon Medical Ce nter (procedure) [code = 278690552] Future Scheduled 1970 Screening for malignant [facility] 00:00:00 neoplasm of colon Medical Ce [facility]ter (procedure) [code = 780815111] Future Scheduled 1970 Screening for malignant [facility] 00:00:00 neoplasm of breast Medical C enter (procedure) [code = 915389751] Future Scheduled 1970 CT Colonography (combo) [facility] 00:00:00 [code = CT Colonography [facility] (combo)] Future Scheduled 1970 Screening for malignant [facility] 00:00:00 neoplasm of colon Medical Ce nter (procedure) [code = 656839685] Future Scheduled 1970 Screening for malignant [facility] 00:00:00 neoplasm of colon Medical Ce nter (procedure) [code = 721030195] Future Scheduled 1970 Screening for malignant [facility] 00:00:00 neoplasm of colon Medical Ce nter (procedure) [code = 526626752] Future Scheduled 1970 Screening for malignant [facility] 00:00:00 neoplasm of colon Medical Ce nter (procedure) [code = 504823766] Future Scheduled 1970 Sigmoidoscopy [code = [facility] 00[facility] S[facility]oscopy] Medical Cente r Encounters Start End Encounter Admission Attending Care Care Encounter Source Date/Time Date/Time Type Type Clinicians Facility Department ID 2022-07-27 Outpatient [facility] [id number] [place] 01:03[place]21 [id number] [facility] 2022-06-30 Outpatient [facility] [id number] [place] 01:02:12 [id number] [facility] 2022-03-06 Outpatient [facility] [id number] [place] 12:00:42 KHUSHBOO [id number] [facility] 2022-02-22 Outpatient [facility] [id number] [place] 16:01:00 [id number] [facility] 2022-02-08 Outpatient [facility] [id number] [place] 06:05:00 [id number] [facility] 2022-02-07 Outpatient [facility] [id number] [place] 15:02:19 [id number] [facility] 2021-05-22 Inpatient ER MALLORY, [facility] [id number] [facility] 11:27:13 LAMIN 2022-04-27 2022-04-28 [facility] [id number] 06:43:00 15:25:00 [facility] 2022-03-06 2022-04-04 [facility] [id number] 14:30:00 23:59:00 [facility] 2022-03-31 2022-03-31 [facility] [id number] 06:03:00 08:48:00 [facility] 2022-03-24 2022-03-24 [facility] [id number] 09:30:00 23:59:00 [facility] 2022 2022-02-09 Inpatient E LOTUS, [facility] [id number] [facility] 06:37:00 18:00:00 ANT 2022-01-17 2022-01-17 Outpatient RAHUL, [facility] [id number] [facility] 10:38:00 23:59:00 [facility]LE [facility] 2021-04-29 2021-04-29 Outpatient DONA BRADEN [facility] [id number] [facility] 00:00:00 00:00:00 VALE 2021-04-19 2021-04-19 Outpatient [facility] [id number] [facility] 00:40:00 23:59:00 [facility] Test Description Test Time Test Comments Results Result Sourc e Comments TISSUE EXAM 2021-04-27 Surgical Pathology 13:15:38 Report Case: [id number] Authorizing Provider: Yamilex Cota MD Collected: 04/22/2021 10:18 AM Ordering Location: [facility] PERIOPERATIVE Received: 04/22/2021 11:00 AM SERVICES Pathologist: Amaya Peraza MD Specimen: Gallbladder GALLBLADDER, CHOLECYSTECTOMY:- CHRONIC CHOLECYSTITIS- CHOLELITHIASIS- CHOLESTEROLOSIS Signing Pathologist Direct Phone Line: [phone] ally signed by Amaya Peraza MD on 04/27/2021 at 1:15 [id number] asisGallbladderPerform ed.[facility], Department of Pathology, [address] [place] [address], [facility], [address] [place] [address], [facility], [facility] of [facility]ology, [address] [place] [address], Tcgktujo fresh labeled the patient's name, accession number [...] thick and displays multiple embedded black calculi. Security Systems Administrator sections are submitted in A1-A2, with the inked cystic duct margin in A1.MARCO Slaughter, HT ([facility]) COMPREHENSIVE METABOLIC PANEL 2021-04-24 07:46:37 Test Item [...] GFR IS NOT APPLICABLE FOR DIALYSIS PATIENTS. Investigator Narcotics ID Sumeet QUIROGA FCBC (HEMOGRAM ONLY)2021-04-24 07:03:46 Test Item Value [...] WBC 0-0 (BEAKER) (test code = 413) [id number] 07:25:27 Test Item Value Reference Range Interpretation Comments PHOSPHORUS (BEAKER) (test code = 2.5 mg/dL 2.3-4.7 604) Investigator Narcotics ID - GLYNN [id number] 07:25:26 Test Item Value Reference Range Interpretation Comments MAGNESIUM (BEAKER) (test code = 1.9 mg/dL 1.6-2.6 627) Investigator Narcotics ID - GLYNN MCOMPREHENSIVE METABOLIC [id number] 07:25:25 Test Item Value Reference Range Interpretation [...] S NOT APPLICABLE FOR DIALYSIS PATIEN TS. Investigator Narcotics ID - GLYNN [facility] (HEMOGRAM ONLY)2021-04-23 06:17:56 Test Item Value Reference [...] (BEAKER) (test code = 413) COMPREHENSIVE METABOLIC [id number] 05:27:00 Test Item Value Reference Range Interpretation [...] S NOT APPLICABLE FOR DIALYSIS PATIEN TS. Investigator Narcotics ID - PAZ [id number] 05:27:00 Test Item Value Reference Range Interpretation Comments MAGNESIUM (BEAKER) (test code = 1.9 mg/dL 1.6-2.6 627) Investigator Narcotics ID - PAZ [id number] 05:27:00 Test Item Value Reference Range Interpretation Comments PHOSPHORUS (BEAKER) (test code = 3.3 mg/dL 2.3-4.7 604) Investigator Narcotics ID - PAZ LCBC (HEMOGRAM ONLY)2021-04-22 04:50:00 [...] 0-0 (BEAKER) (test code = 413) SCREEN, [id number] 07:38:00 Test Item Value Reference Range Interpretation Comments TEST URINE (BEAKER) (test Negative code = 583) [id number] 07:13:00 Test Item Value Reference Range Interpretation Comments MAGNESIUM (BEAKER) (test code = 1.8 mg/dL 1.6-2.6 627) Investigator Narcotics ID - GLYNN [id number] 07:13:00 Test Item Value Reference Range Interpretation Comments PHOSPHORUS (BEAKER) (test code = 3.5 mg/dL 2.3-4.7 604) Investigator Narcotics ID Sumeet MAKI MCOMPREHENSIVE METABOLIC [id number] 07:13:00 Test Item Value Reference Range Interpretation [...] S NOT APPLICABLE FOR DIALYSIS PATIEN TS. Investigator Narcotics ID - GLYNN MSpecimen slightly ictericCBC (HEMOGRAM [...] 0-0 (BEAKER) (test code = 413) FL, [id number] 12:19:00Reason for exam:->abnormal imagery [facility] 1970 Sex: FFluoroscopic unit utilized for a procedure performed in the OR. No interpretation was requested. Refer to the operative report for findings. Refer to PACS for patient radiation dose information.COMPREHENSIVE METABOLIC [id number] 06:27:00 Test Item Value Reference Range Interpretation [...] S NOT APPLICABLE FOR DIALYSIS PATIEN TS. Investigator Narcotics ID - PISALVADOR [id number] 06:27:00 Test Item Value Reference Range Interpretation Comments MAGNESIUM (BEAKER) (test code = 1.9 mg/dL 1.6-2.6 627) Investigator Narcotics ID - PAZ [id number] 06:27:00 Test Item Value Reference Range Interpretation Comments PHOSPHORUS (BEAKER) (test code = 3.9 mg/dL 2.3-4.7 604) Investigator Narcotics ID - PAZ LCBC (HEMOGRAM ONLY)2021-04-20 05:44:00 [...] 0-0 (BEAKER) (test code = 413) SARS-COV2/RT-PCR ([facility])2021-04-20 02:44:00 Test Item Value Reference Range Interpretation Comments SARS-COV2/RT-PCR (test code = Negative Negative 2923661) Negative result for this test determines that [...] 564(g) of the Act.Testing was performed using [employer] SARS-CoV-2 assay.Fact Sheet for Healthcare Providers:https://www.[employer]/perry/RT SARS-CoV-2 HCP Fact Sheet 51- 093125.pdfFact Sheet for Healthcare Patients:https://www.[employer].pollock/perry/RT SARS-CoV-2 Patient Fact Sheet EN 51-466720R7.pdfMR, ABDOMEN, [id number] 11:04:00Unlisted Reason for Exam - Click Yes and Enter Reason Below->No [facility] 1970 Sex: FFINAL [...] segment 5/6 and a 10 mm circumscribed [id number] in segment 7, incompletely characterized on this [...] Raya Verified Date/Time: 04/19/2021 11:04:09 Reading Location: [facility] Diagnostic Imaging Reading Room - [place] [address] HEPATITIS PANEL, [id number] 08:02:00 Test Item Value Reference Range Interpretation Comments HEPATITIS A IGM ANTIBODY (BEAKER) Nonreactive Nonreactive (test code = 498) HEPATITIS B CORE IGM ANTIBODY Nonreactive Nonreactive (BEAKER) (test code = 645) HEPATITIS C ANTIBODY (BEAKER) Nonreactive Nonreactive (test code = 367) HEPATITIS B SURFACE ANTIGEN (2) Nonreactive Nonreactive (BEAKER) (test code = 2585) Investigator Narcotics ID - GABRIEL CURINALYSIS W/ REFLEX URINE [id number] 05:17:00 Test Item Value Reference Range Interpretation [...] = 1584) SOURCE(BEAKER) (test code = 2795) Investigator Narcotics ID - [auto]Investigator Narcotics ID - [id number] 04:58:00 Test Item Value Reference Range Interpretation Comments MAGNESIUM (BEAKER) (test code = 1.8 mg/dL 1.6-2.6 627) Investigator Narcotics ID - GLYNN [id number] 04:58:00 Test Item Value Reference Range Interpretation Comments PHOSPHORUS (BEAKER) (test code = 2.8 mg/dL 2.3-4.7 604) Investigator Narcotics ID - GLYNN MCOMPREHENSIVE METABOLIC [id number] 04:58:00 Test Item Value Reference Range Interpretation [...] S NOT APPLICABLE FOR DIALYSIS PATIEN TS. Investigator Narcotics ID - GLYNN MSpecimen slightly ictericBILIRUBIN, [id number] 04:58:00 Test Item Value Reference Range Interpretation Comments BILIRUBIN DIRECT (BEAKER) (test 1.5 mg/dL 0.1-0.5 H code = 706) Investigator Narcotics ID - GLYNN [id number] 04:58:00 Test Item Value Reference Range Interpretation Comments LIPASE (BEAKER) (test code = 749) 19 U/L 8-78 Investigator Narcotics ID - GLYNN MSpecimen slightly ictericC-REACTIVE [id number] 04:58:00 Test Item Value Reference Range Interpretation Comments C-REACTIVE PROTEIN (BEAKER) (test 1.68 mg/dL 0.00-0.50 H code = 676) Investigator Narcotics ID - GLYNN MPROTHROMBIN TIME/[id number] 04:26:00 Test Item Value Reference Range Interpretation Comments PROTIME (BEAKER) 13.1 seconds 11.9-14.2 (test code = 759) INR (BEAKER) (test 1.01 See_Comment [Automat ed message] code = 370) The system [employer] generated this result transmitted ref erence range: <=5.90. The reference range was not used to int erpret this result as normal/abnormal . RECOMMENDED COUMADIN/WARFARIN INR THERAPY RANGESSTANDARD DOSE: 2.0 - 3.0 Includes: PROPHYLAXIS for venous thrombosis, systemic embolization; TREATMENT for venous thrombosis and/or pulmonary embolus.HIGH RISK: Target INR is 2.5-3.5 for patients with mechanical heart valves.CBC W/PLT COUNT & AUTO [id number] 04:21:00 Test Item Value Reference Range Interpretation [...] (BEAKER) (test code = 2801) U/S, ABDOMINAL, [id number] 03:10:00Abdomen limited area? Add comment if clarification is needed.->Gall BladderReason for exam:->ch oledocholithiasisShould this be performed at the bedside?->Yes [facility] BELINDAMACK NSYDER : 1970 Sex: FFINAL REPORT EXAM/TECHNIQUE: Limited [...] present without biliary dilatation. Signed: Danny Trammell [facility] Verified Date/Time: 04/19/2021 03:10:27
[2022-12-24] MEDS ORDERED: ONDANSETRON 4 MG/2 ML VIAL ONE (10:40)
[2022-12-24] MEDS ORDERED: MORPHINE 4 MG/ML SYR ONE ×2 (10:40→12:16)
[2022-12-24 11:05] LABS: Absolute Lymphocytes (CBC) 1.5 K/uL (0.7-4.9); Lymphocytes % 10.7 % (15.3-44.8); MCV 93.5 fL (80-100); MPV 6.2 fL (7.6-11.3); Protime INR 1.11; RBC Red Blood Cell Count 4.49 M/uL (3.86-4.86)
[2022-12-24 11:11] LABS: Specific Gravity 1.015 (1.005-1.030); Urine Bacteria None Seen /HPF (<20); Urine Bilirubin NEGATIVE (Negative); Urine Blood Trace (Negative); Urine Clarity Clear (Clear); Urine Color Light-Orange (Yellow); Urine Glucose NEGATIVE (Negative); Urine Protein NEGATIVE (Negative); Urine RBC <5 /HPF (None Seen); Urine Urobilinogen 2+ (Normal); Urine pH 7.5 (5.0-7.0)
--- NOTE | 2022-12-24 11:22 | RAD REPORT ---
EXAM DESCRIPTION: US - Extremity Venous Uni Ltd - 12/24/2022 11:12 am CLINICAL HISTORY: Pain;Swelling Leg swelling and edema. COMPARISON: <Comparisons> FINDINGS: Right lower extremity venous system was interrogated with Doppler technique. Normal flow, compressibility and augmentation was noted. There is no DVT present. IMPRESSION: No evidence of right lower extremity deep venous thrombosis.
[2022-12-24 11:23] LABS: ALT/SGPT 26 U/L (13-56); AST/SGOT 33 U/L (15-37); Alkaline Phosphatase 154 U/L (45-117); BUN Blood Urea Nitrogen 8 mg/dL (7-18); Bicarbonate 29 mEq/L (21-32); Bilirubin Indirect, Calculated 1.9 (0.2-0.8); Bilirubin Total 2.9 mg/dL (0.2-1.0); Glomerular Filtration Rate 101 ml/min (=/>90); Glucose Level 113 mg/dL (74-106); Magnesium 1.7 mg/dL (1.6-2.4); NT PRO-BNP 58 pg/mL (<125); Potassium 3.5 mEq/L (3.5-5.1); Protein, Total 7.7 g/dL (6.4-8.2); Sodium Level 133 mEq/L (136-145)
--- NOTE | 2022-12-24 11:35 | RAD REPORT ---
EXAM DESCRIPTION: RAD - Chest Single View - 12/24/2022 11:24 am CLINICAL HISTORY: CHEST PAIN Chest pain. COMPARISON: CHEST SINGLE VIEW dated 07/07/2013; CHEST SINGLE VIEW dated 01/26/2013; CHEST SINGLE VIEW dated 08/27/2012; CHEST SINGLE VIEW dated 08/26/2012 FINDINGS: Portable technique limits examination quality. Mild hazy left basilar lung opacities seen with trace left pleural effusion, likely representing pneu monia. The lungs are otherwise clear. The heart is normal in size. No displaced fractures.
[2022-12-24 11:51] LABS: Troponin High Sensitivity < 3.0 pg/mL (<58.9)
[2022-12-24] MEDS ORDERED: HYDROMORPHONE HCL 1 MG/ML INJ ONE ×3 (12:17→15:26)
--- NOTE | 2022-12-24 13:32 | RAD REPORT ---
EXAM DESCRIPTION: CT - Chest For Pe Angio - 12/24/2022 1:18 pm CLINICAL HISTORY: Chest pain. CHEST PAIN COMPARISON: CTANGIO CHEST FOR PE dated 07/07/2013 TECHNIQUE: CT angiogram of the pulmonary arteries was performed with MIP. All CT scans are performed using dose optimization technique as appropriate and may include automated exposure control or mA/KV adjustment according to patient size. FINDINGS: Moderate pulmonary embolism is seen involving the left main pulmonary artery as well as th e segmental branches anterior left upper lobe branch, lingular branch and left lower lobe branches. S mall pulmonary embolism is seen in posterior right lower lobe branches well as medial right upper lob e branches. No acute aortic finding demonstrated. No evidence of right ventricular strain pattern. Mild atelectasis is present in both lung bases. Small area of ground-glass attenuation is seen lingul a and lateral right upper lobe. Small left pleural effusion. No concerning bony finding. IMPRESSION: Positive for bilateral pulmonary thromboembolism, with more extensive PE seen involving the left. No RV strain pattern. Small left pleural effusion.
--- NOTE | 2022-12-24 13:36 | RAD REPORT ---
EXAM DESCRIPTION: CTAbdomen Pelvis W Contrast - 12/24/2022 1:19 pm CLINICAL HISTORY: Abdominal pain. elevated liver enzymes COMPARISON: Abdomen Pelvis W Contrast dated 05/27/2022; Abdomen Pelvis W Contrast dated ; Abdomen Pelvis W Contrast dated 01/03/2019; CT ABD PELVIS W CONTRAST dated 07/09/2014 TECHNIQUE: Biphasic CT imaging of the abdomen and pelvis was performed with 100 ml non-ionic IV cont rast. All CT scans are performed using dose optimization technique as appropriate and may include automated exposure control or mA/KV adjustment according to patient size. FINDINGS: Mild atelectasis both lung bases with small left pleural effusion.Postsurgical changes of cholecystectomy. Postsurgical changes are also present gastroesophageal junction with small hiatal he rnia. The liver is diffusely fatty. The spleen, pancreas, adrenal glands and kidneys are within normal limi ts. No bowel obstruction, free air, free fluid or abscess. Moderate fecal retention throughout the colon. The appendix is normal. No evidence of significant lymphadenopathy. No suspicious bony findings. IMPRESSION: Moderate diffuse fatty liver. Moderate fecal retention throughout the colon.
--- NOTE | 2022-12-24 13:47 | ER ---
Nurse's Notes [facility] Name: Vanna Swan Age: 52 yrs Sex: Female : 1970 Arrival Date: 12/24/2022 Time: 09:56 Bed 6 Private MD: Diagnosis: Pulmonary embolism without acute cor pulmonale;Chest pain, unspecified Presentation: 12/24 10:14 Chief complaint: Intermittent left sided chest pain x 3 days, cough, congestion, and hb mild SOB today. Coronavirus screen: Client presents with at least one sign or symptom that may indicate coronavirus-19. Provider contacted for isolation considerations. Ebola Screen: No symptoms or risks identified at this time. Initial Sepsis Screen: Does the patient meet any 2 criteria? No. Patient's initial sepsis screen is negative. Does the patient have a suspected source of infection? No. Patient's initial sepsis screen is negative. Risk Assessment: Do you want to hurt yourself or someone else? Patient reports no desire to harm self or others. Onset of symptoms was December 21, 2022. 10:14 Method Of Arrival: Ambulatory hb 10:14 Acuity: AILEEN 3 hb Historical: - Allergies: 10:16 No Known Allergies; hb - Home Meds: 10:16 lisinopril Oral [Active]; Oxycodone HCl Oral [Active]; pantoprazole Oral [Active]; hb - PMHx: 10:16 Colitis; Hypertension; Irregular heart rate; Ulcers; hb - PSHx: 10:16 Cholecystectomy; gastric; neck injections; uterine ablation; hb - Immunization history:: Adult Immunizations up to date. - Social history:: Smoking status: . Screenin:15 [facility] ED Fall Risk Assessment (Adult) Score/Fall Risk Level 0 - 2 = Low Risk. Abuse eh3 screen: Denies threats or abuse. Denies injuries from another. Nutritional screening: No deficits noted. Tuberculosis screening: No symptoms or risk factors identified. Assessment: 10:15 General: Appears in no apparent distress. uncomfortable, Behavior is calm, cooperative, eh3 appropriate for age. Pain: Complains of pain in chest and left leg Pain radiates to anterior aspect of left upper chest Pain currently is 9 out of 10 on a pain scale. Quality of pain is described as sharp, squeezing, Pain began 2-3 days ago. Is continuous, Aggravated by breathing. Neuro: Level of Consciousness is awake, alert, obeys commands, Oriented to person, place, time, situation. Cardiovascular: Capillary refill < 3 seconds Patient's skin is warm and dry. Respiratory: Airway is patent Respiratory effort is even, unlabored, Respiratory pattern is regular, symmetrical. GI: Abdomen is round non-distended. : No signs and/or symptoms were reported regarding the genitourinary system. EENT: No signs and/or symptoms were reported regarding the EENT system. Derm: Skin is pink, warm \T\ dry. Musculoskeletal: Circulation, motion, and sensation intact. 11:15 Reassessment: Patient appears in no apparent distress at this time. Patient and/or [facility] family updated on plan of care and expected duration. Pain level reassessed. Patient is alert, oriented x 3, equal unlabored respirations, skin warm/dry/pink. 12:15 Reassessment: Patient appears in no apparent distress at this time. Patient and/or 3 family updated on plan of care and expected duration. Pain level reassessed. Patient is alert, oriented x 3, equal unlabored respirations, skin warm/dry/pink. 13:15 Reassessment: Patient appears in no apparent distress at this time. Patient and/or [facility] family updated on plan of care and expected duration. Pain level reassessed. Patient is alert, oriented x 3, equal unlabored respirations, skin warm/dry/pink. Patient states symptoms have improved. 14:15 Reassessment: Patient appears in no apparent distress at this time. Patient and/or 3 family updated on plan of care and expected duration. Pain level reassessed. Patient is alert, oriented x 3, equal unlabored respirations, skin warm/dry/pink. 14:48 Reassessment: Failed attempt to call report to 4th floorEsperanza states the nurse will [facility] call back to receive report. 15:15 Reassessment: Patient appears in no apparent distress at this time. Patient and/or 3 family updated on plan of care and expected duration. Pain level reassessed. Patient is alert, oriented x 3, equal unlabored respirations, skin warm/dry/pink. 15:47 Reassessment: Nurse to nurse report received by DAILY Rios. [facility] Vital Signs: 10:14 BP 141 / 98; Pulse 107; Resp 18; Temp 98.2; Pulse Ox 96% on R/A; Weight 95.25 kg; hb Height 6 ft. 2 in. ; Pain 10/10; 10:15 BP 131 / 95; Pulse 97; Resp 18; Temp 98.9(O); Pulse Ox 98% ; eh3 11:15 BP 127 / 90; Pulse 93; Resp 15; Pulse Ox 97% on R/A; eh3 12:15 BP 138 / 93; Pulse 84; Resp 19; Pulse Ox 99% on R/A; eh3 13:15 BP 126 / 92; Pulse 81; Resp 20; Pulse Ox 96% on R/A; eh3 14:15 BP 124 / 90; Pulse 80; Resp 20; Pulse Ox 97% on R/A; eh3 14:57 BP 124 / 90; Pulse 82; Resp 18; Pulse Ox 99% on R/A; ld1 10:14 Body Mass Index 26.96 (95.25 kg, 187.96 cm) hb 10:14 Pain Scale: Adult hb Vitals: 10:15 Cardiac Rhythm Assessment Sinus rhythm. eh3 ED Course: 09:58 Patient arrived in ED. am2 10:05 Davis Millan PA is PHCP. cp 10:05 Shyam Worley MD is Attending Physician. cp 10:15 Elina Esposito RN is Primary Nurse. eh3 10:15 Patient has correct armband on for positive identification. Bed in low position. Call eh3 light in reach. Side rails up X2. Client placed on continuous cardiac and pulse oximetry monitoring. NIBP monitoring applied. Door closed. Noise minimized. Lights dimmed. Warm blanket given. 10:15 Patient maintains SpO2 saturation greater than 95% on room air. eh3 10:16 Triage completed. hb 10:16 Arm band placed on. hb 10:45 Missed attempt(s): 22 gauge in right antecubital area. Bleeding controlled, band aid eh3 applied, catheter tip intact. 10:56 Inserted saline lock: 20 gauge in right forearm, using aseptic technique. Blood ld1 collected. Missed attempt(s): 20 gauge in right forearm. 11:14 US Extremity Venous Unilateral Ltd In Process Unspecified. EDMS 11:26 XRAY Chest (1 view) In Process Unspecified. EDMS 13:20 CT Chest For PE Angio In Process Unspecified. EDMS 13:21 CT Abd/Pelvis - IV Contrast Only In Process Unspecified. EDMS 13:44 Tristan Bridges MD is Hospitalizing Provider. cp Administered Medications: 10:55 Drug: morphine IVP or IV 4 mg Route: IVP; Infused Over: 4 mins; Site: right forearm; eh3 12:00 Follow up: Response: No adverse reaction; Pain is unchanged, physician notified eh3 10:55 Drug: Ondansetron IVP 4 mg Route: IVP; Site: right forearm; eh3 12:00 Follow up: Response: No adverse reaction eh3 12:28 Drug: HYDROmorphone IVP 1 mg Route: IVP; Site: right forearm; eh3 13:30 Follow up: Response: Pain is decreased eh3 15:20 Drug: HYDROmorphone IVP 1 mg Route: IVP; Site: right forearm; ld1 15:46 Follow up: Response: Pain is decreased eh3 Outcome: 13:47 Decision to Hospitalize by Provider. cp 16:14 Patient left the ED. aa5 Signatures: Dispatcher [employer] EDMS Kathie Thompson RN RN aa5 Davis Millan PA PA cp Isabell Morrow RN RN Christen Silva am2 Radha Morley RN RN ld1 Elina Esposito RN RN eh3 Corrections: (The following items were deleted from the chart) 11:09 10:30 Kathie Thompson RN is Primary Nurse. aa5 3 11:09 11:08 Primary Nurse role handed off by Kathie Thompson RN 3 eh3 11:09 11:08 Elina Esposito RN is Primary Nurse. eh3 eh3 12:50 12:15 Reassessment: Patient appears in no apparent distress at this time. Patient eh3 and/or family updated on plan of care and expected duration. Pain level reassessed. Patient is alert, oriented x 3, equal unlabored respirations, skin warm/dry/pink. Patient states symptoms have improved. eh3
--- NOTE | 2022-12-24 13:47 | EDPHYS ---
Physician Documentation [facility] Name: Vanna Swan Age: 52 yrs Sex: Female : 1970 Arrival Date: 12/24/2022 Time: 09:56 Bed 6 Private MD: ED Physician Shyam Worley HPI: 12/24 10:20 This 52 yrs old Black Female presents to ER via Ambulatory with complaints of Pain All cp Over, Chest Pain. 10:20 The patient or guardian reports chest pain that is located primarily in the anterior cp chest wall, left. 10:20 Onset: 3 day(s) ago. cp 10:20 The pain radiates to back. Associated signs and symptoms: Pertinent positives: cough, cp lower extremity pain, lower extremity swelling, shortness of breath, Pertinent negatives: diaphoresis, palpitations, syncope, vomiting. The chest pain is described as constant. Duration: The patient or guardian reports a single episode, that is still ongoing, and worsening. Severity of pain: in the emergency department the pain is unchanged despite home interventions. Historical: - Allergies: 10:16 No Known Allergies; hb - Home Meds: 10:16 lisinopril Oral [Active]; Oxycodone HCl Oral [Active]; pantoprazole Oral [Active]; hb - PMHx: 10:16 Colitis; Hypertension; Irregular heart rate; Ulcers; hb - PSHx: 10:16 Cholecystectomy; gastric; neck injections; uterine ablation; hb - Immunization history:: Adult Immunizations up to date. - Social history:: Smoking status: . ROS: 10:25 Constitutional: Negative for body aches, chills, fever, poor PO intake. cp 10:25 Eyes: Negative for injury, pain, redness, and discharge. cp 10:25 ENT: Negative for drainage from ear(s), ear pain, sore throat, difficulty swallowing, difficulty handling secretions. 10:25 Cardiovascular: Positive for chest pain, Negative for palpitations. 10:25 Respiratory: Positive for cough, shortness of breath, at rest. Negative for wheezing. 10:25 Abdomen/GI: Negative for abdominal pain, vomiting, diarrhea, constipation. 10:25 Back: Positive for radiated pain. 10:25 : Negative for urinary symptoms. cp 10:25 Neuro: Negative for altered mental status, dizziness, headache, syncope, weakness. 10:25 All other systems are negative. Exam: 10:25 ECG was reviewed by the Attending Physician. cp 10:30 Constitutional: The patient appears in no acute distress, alert, awake, cp non-diaphoretic, non-toxic, well developed, well nourished, uncomfortable. 10:30 Head/Face: Normocephalic, atraumatic. cp 10:30 Eyes: Periorbital structures: appear normal, Conjunctiva: normal, no exudate, no injection, Sclera: no appreciated abnormality, Lids and lashes: appear normal, bilaterally. 10:30 ENT: External ear(s): are unremarkable, Nose: is normal, Mouth: Lips: moist, Oral mucosa: pink and intact, moist, Posterior pharynx: is normal, airway is patent, no erythema, no exudate. 10:30 Neck: ROM/movement: is normal, is supple, without pain, no range of motions limitations. 10:30 Chest/axilla: Inspection: normal. 10:30 Cardiovascular: Rate: tachycardic, Rhythm: regular, Edema: is not appreciated, JVD: is not appreciated. 10:30 Respiratory: the patient does not display signs of respiratory distress, Respirations: normal, no use of accessory muscles, no retractions, labored breathing, is not present, Breath sounds: bronchial sounds, that are mild, are heard diffusely, decreased breath sounds, are not appreciated, stridor, is not appreciated, wheezing: is not appreciated. 10:30 Abdomen/GI: Inspection: abdomen appears normal, Bowel sounds: active, all quadrants, Palpation: abdomen is soft and non-tender, in all quadrants. 10:30 Back: CVA tenderness, is absent. 10:30 Musculoskeletal/extremity: Extremities: noted in the right lower leg: pain, tenderness, mild swelling. 10:30 Skin: no rash present. 10:30 Neuro: Orientation: to person, place \T\ time. Mentation: is normal, Motor: moves all fours, strength is normal, Sensation: is normal. Vital Signs: 10:14 BP 141 / 98; Pulse 107; Resp 18; Temp 98.2; Pulse Ox 96% on R/A; Weight 95.25 kg; hb Height 6 ft. 2 in. ; Pain 10/10; 10:15 BP 131 / 95; Pulse 97; Resp 18; Temp 98.9(O); Pulse Ox 98% ; eh3 11:15 BP 127 / 90; Pulse 93; Resp 15; Pulse Ox 97% on R/A; eh3 12:15 BP 138 / 93; Pulse 84; Resp 19; Pulse Ox 99% on R/A; eh3 13:15 BP 126 / 92; Pulse 81; Resp 20; Pulse Ox 96% on R/A; eh3 14:15 BP 124 / 90; Pulse 80; Resp 20; Pulse Ox 97% on R/A; eh3 14:57 BP 124 / 90; Pulse 82; Resp 18; Pulse Ox 99% on R/A; ld1 10:14 Body Mass Index 26.96 (95.25 kg, 187.96 cm) hb 10:14 Pain Scale: Adult hb MDM: 10:11 Patient medically screened. cp 11:00 Differential diagnosis: acute myocardial infarction, acute pericarditis, myocarditis, cp pancreatitis, pericarditis, pleurisy, pneumonia, pneumothorax, pulmonary embolus, stable angina, thoracic aortic disection, unstable angina. 13:43 ED course: attempt to call msg Randolph left on voicemail. cp 13:50 Data reviewed: vital signs, nurses notes, lab test result(s), EKG, radiologic studies, cp CT scan, plain films, and as a result, I will admit patient. 13:50 Consideration of Admission/Observation Patient was admitted/placed on observation. cp Management of patient was discussed with the following: Hospitalist: DR Bridges will evaluate patient in ED for admission after discussion. I considered the following discharge prescriptions or medication management in the emergency department Medications were administered in the Emergency Department. See MAR. Independent interpretation of the following test(s) in the Emergency Department EKG: See my EKG interpretation above. Counseling: I had a detailed discussion with the patient and/or guardian regarding: the historical points, exam findings, and any diagnostic results supporting the discharge/admit diagnosis, lab results, radiology results. 12/24 10:16 Order name: Basic Metabolic Panel; Complete Time: 11:54 cp 12/24 11:54 Interpretation: Normal except: NA 133; GLUC 113. cp 12/24 10:16 Order name: CBC with Diff; Complete Time: 11:08 cp 12/24 11:08 Interpretation: Normal except: WBC 13.70; MPV 6.2; OC% 80.4; LYM% 10.7; NEUT A 11.1. cp 05/14 10:16 Order name: LFT's; Complete Time: 11:54 cp 12/24 11:55 Interpretation: Normal except: ALK 154; BILIT 2.9; BILID 1.0; IBILI, CALC 1.9; ALB 3.0; cp GLOB 4.7; A/G 0.6. 12/24 10:16 Order name: Magnesium; Complete Time: 11:54 cp 14 10:16 Order name: NT PRO-BNP; Complete Time: 11:54 cp 12/24 10:16 Order name: PT-INR; Complete Time: 12:08 cp 12/24 12:08 Interpretation: Reviewed. cp 12/24 10:16 Order name: Troponin HS; Complete Time: 11:54 cp 12/24 10:19 Order name: Urinalysis W/Microscopic; Complete Time: 11:33 cp 12/24 11:33 Interpretation: Normal except: UBLD Trace; UPH 7.5; UUROB 2+. cp 12/24 10:19 Order name: Lipase; Complete Time: 11:33 cp 14 11:55 Order name: LAB Add On cp 12/24 11:57 Order name: D-Dimer; Complete Time: 12:08 EDMS 12/24 12:08 Interpretation: Abnormal: D-DIMER [id number]. cp 12/24 14:17 Order name: CBC with Automated Diff EDMS 12/24 10:16 Order name: XRAY Chest (1 view); Complete Time: 11:54 cp 12/24 10:19 Order name: US Extremity Venous Unilateral Ltd; Complete Time: 11:33 cp 12/24 11:34 Interpretation: Report reviewed. cp 12/24 12:10 Order name: CT Chest For PE Angio; Complete Time: 13:33 cp 14 12:10 Order name: CT Abd/Pelvis - IV Contrast Only; Complete Time: 13:38 cp 12/24 10:16 Order name: EKG; Complete Time: 10:17 cp 12/24 14:16 Order name: Regular EDMS 12/24 10:16 Order name: Cardiac monitoring; Complete Time: 10:30 cp 12/24 10:16 Order name: EKG - Nurse/Tech; Complete Time: 10:30 cp 12/24 10:16 Order name: IV Saline Lock; Complete Time: 10:55 cp 12/24 10:16 Order name: Labs collected and sent; Complete Time: 10:55 cp 12/24 10:16 Order name: O2 Per Protocol; Complete Time: 10:30 cp 12/24 10:16 Order name: O2 Sat Monitoring; Complete Time: 10:30 cp 12/24 13:42 Order name: Misc. Order: bedrest; Complete Time: 13:43 cp EC:25 Rate is 102 beats/min. Rhythm is regular. CA interval is normal. QRS interval is cp normal. QT interval is normal. T waves are Inverted in leads aVL, aVR. Interpreted by me. Reviewed by me. Administered Medications: 10:55 Drug: morphine IVP or IV 4 mg Route: IVP; Infused Over: 4 mins; Site: right forearm; eh3 12:00 Follow up: Response: No adverse reaction; Pain is unchanged, physician notified eh3 10:55 Drug: Ondansetron IVP 4 mg Route: IVP; Site: right forearm; eh3 12:00 Follow up: Response: No adverse reaction eh3 12:28 Drug: HYDROmorphone IVP 1 mg Route: IVP; Site: right forearm; eh3 13:30 Follow up: Response: Pain is decreased eh3 15:20 Drug: HYDROmorphone IVP 1 mg Route: IVP; Site: right forearm; ld1 15:46 Follow up: Response: Pain is decreased eh3 Disposition: 16:45 Co-signature as Attending Physician, Shyam Worley MD I agree with the assessment and kdr plan of care. Disposition Summary: 12/24/22 13:47 Hospitalization Ordered Hospitalization Status: Inpatient Admission cp Provider: Tristan Bridges cp Location: Telemetry/MedSurg (Inpatient) cp Condition: Stable cp Problem: new cp Symptoms: have improved cp Bed/Room Type: Standard cp Room Assignment: 413(12/24/22 14:32) eb Diagnosis - Pulmonary embolism without acute cor pulmonale cp - Chest pain, unspecified cp Forms: - Medication Reconciliation Form cp - SBAR form cp Signatures: Dispatcher [employer] EDShyam Odonnell MD MD kdr Page, Corey, PA PA cp Isabell Morrow, RN RN Neha Clay Lauren, DAILY RN ld1 Elina Esposito RN RN eh3 Corrections: (The following items were deleted from the chart) 12:25 11:56 D-DIMER+COAG.LAB.BRZ ordered. EDMS EDMS 14:32 13:47 cp eb 12/25 15:25 05 10:20 The patient or guardian reports chest pain that is located primarily in the cp anterior chest wall, bilaterally, cp
[2022-12-24] MEDS ORDERED: ONDANSETRON 4 MG/2 ML VIAL IV PRN (14:12)
--- NOTE | 2022-12-24 14:19 | P.HP ---
Certification for Inpatient Patient admitted to: Observation With expected LOS: <2 Midnights Practitioner: I am a practitioner with admitting privileges, knowledge of patient current condition, hospital course, and medical plan of care. Services: Services provided to patient in accordance with Admission requirements found in Title 42 Section 412.3 of the Code of Federal Regulations Patient History Date of Service: 12/24/22 Reason for admission: Pulmonary embolism shortness of breath History of Present Illness: Patient is 52 years of age having some right-sided arm pain to 3 days ago chest discomfort prostate chest he noticed some swelling of her legs associated with shortness of breath ended up here in the hospital diagnosed to have bilateral pulmonary embolism patient did have DVT and PE in 2013 was treated with 6 months of Xarelto no other precipitating or risk factors patient is very active no recent surgeries or cancer and does smoke she has some dyspnea on exertion Allergies No Known Allergies Allergy (Verified 09/10/19 10:32) Home Medications: Alprazolam [Xanax] 1 mg PO BID 12/24/22 Amlodipine [Norvasc] 10 mg PO DAILY 12/24/22 Oxycodone HCl/Acetaminophen [Endocet 10-325 mg Tablet] 1 each PO TID 12/24/22 - Past Medical/Surgical History Diabetic: No -: History of pulmonary embolus 2012 -: Hypertension -: Cholecystectomy -: Gastric sleeve - Social History Alcohol use: No CD- Drugs: No Caffeine use: No Review of Systems 10-point ROS is otherwise unremarkable Physical Examination - Vital Signs Temperature: 98.2 F Blood Pressure: 141/98 Pulse: 107 Respirations: 18 Pulse Ox (%): 96 (Room air) - Physical Exam General: Alert, In no apparent distress, Oriented x3 Respiratory: Clear to auscultation bilaterally Cardiovascular: No edema, Regular rate/rhythm, Normal S1 S2 Gastrointestinal: Normal bowel sounds, Soft and benign, Non-distended Integumentary: No rashes, No breakdown, No significant lesion Neurological: Normal speech, Normal strength at 5/5 x4 extr, Cranial nerves 3-12 intact - Studies Laboratory Data (last 24 hrs) 12/24/22 10:52: Lipase 17 12/24/22 10:52: PT 12.2, INR 1.11 12/24/22 10:52: WBC 13.70 H, Hgb 14.2, Hct 42.0, Plt Count 234 12/24/22 10:52: Sodium 133 L, Potassium 3.5, BUN 8, Creatinine 0.72, Glucose 113 H, Magnesium 1.7, Total Bilirubin 2.9 H, AST 33, ALT 26, Alkaline Phosphatase 154 H Assessment and Plan - Problems (Diagnosis) (1) Pulmonary embolism Current Visit: Yes Status: Acute Plan: Patient is 52 years of age admitted with pulmonary embolism this is her second episode last 2012 no obvious precipitating factors patient on Eliquis problems with Xarelto before because some nosebleeds she did take it for 6 month s 3 of hypertension the nursing ordered to call the Eliquis and if covered patient can be discharged tomorrow CT scan reviewed bilateral pulmonary emboli more so on the left side she may have had some bleeding from the blood clot medications hemodynamically stable oxygenation satisfactory Addendum- pt refused Eliquis and wanted Xaretlo/ DC am on Xarelto and Dulera f/u with me 2-4 wks (2) COPD (chronic obstructive pulmonary disease) Current Visit: Yes Status: Acute Plan: Suspect patient has underlying COPD she is an active half a pack a day smoker on some bronchodilators and steroids. DC am on Dulera Qualifiers: COPD type: unspecified COPD Qualified Code(s): J44.9 - Chronic obstructive pulmonary disease, unspecified - Advance Directives Does patient have a Living Will: No Does patient have a Durable POA for Healthcare: No
[2022-12-24] MEDS ORDERED: lisinopriL 20 MG TAB PO SCH (14:20)
--- NOTE | 2022-12-24 14:43 | EKG ---
Test Date: 2022-12-24 Test Time: 10:18:52 Chemical Strength Tester: PRABHJOT MEASUREMENT RESULTS: Intervals: Rate: 102 MD: 158 QRSD: 86 QT: 344 QTc: 448 [place]: P: 71 MD: 158 QRS: 70 T: 83 INTERPRETIVE STATEMENTS: Sinus tachycardia Otherwise normal ECG Compared to ECG 01/31/2022 09:52:56 Sinus rhythm no longer present Electronically Signed On 12-24-22 14:42:42 CDT by Beltran Boone
[2022-12-24] MEDS: DULERA 200/5 (MOMETASONE/FORMOTEROL) INHALER IH SCH ×2 (15:00→20:53)
[2022-12-24] MEDS: APIXABAN 5 MG TABLET PO SCH ×2 (15:00→16:49)
[2022-12-24 15:59] LABS: Absolute Lymphocytes (CBC) 1.9 K/uL (0.7-4.9); Hematocrit 43.4 % (36.0-45.0); Lymphocytes % 14.4 % (15.3-44.8); MCV 94.4 fL (80-100); MPV 6.4 fL (7.6-11.3)
[2022-12-24 16:42] VITALS: O2SAT 99
[2022-12-24] MEDS: predniSONE 20 MG TAB PO SCH ×2 (16:49→20:40)
[2022-12-24 17:13] VITALS: BMI 26.3
[2022-12-24] MEDS ORDERED: RIVAROXABAN 10 MG TABLET PO SCH (18:45)
[2022-12-24] MEDS: MORPHINE 2 MG/ML SYR IV PRN (20:52)
[2022-12-24] MEDS ORDERED: APIXABAN 2.5 MG TABLET PO SCH (21:00)
[2022-12-24] MEDS ORDERED: ACETAMINOPHEN PO PRN (22:32)
[2022-12-24] MEDS ORDERED: OXYCODONE HCL PO PRN (22:32)
[2022-12-24] MEDS: Oxycodone HCl/Acetaminophen 1 TAB TAB PO PRN (22:50)
[2022-12-24] MEDS: BENZONATATE 100 MG CAP PO PRN (22:50)
[2022-12-25] MEDS: MORPHINE 2 MG/ML SYR IV PRN ×4 (05:03→18:41)
--- NOTE | 2022-12-25 07:09 | P.PN ---
Date of Service: 12/25/22 Subjective: complains of chest pain - worsened today states she felt some calf pain that started last night worried about her chest pain / heart ROS: 10 point ROS as noted above, otherwise negative Physical Exam: GEN: Alert, oriented, uncomfortable appearing HEENT: Normal conjunctiva, sclera anicteric CV: Regular rate and rhythm, no edema Pulm: Nonlabored respirations on room air ABD: Soft, nontender, nondistended Neuro: Normal speech, normal affect vitals reviewed Problem List: Pulmonary Embolism Chest pain hx of DVT, PE multiple family members with DVTs COPD, chronic Hypertension Nicotine Dependence CT Abdomen 12/24 -Moderate diffuse fatty liver. Moderate fecal retention throughout the colon CTA Chest 12/24 - Positive for bilateral pulmonary thromboembolism, with more extensive PE seen involving the left CXR 12/24 - Mild hazy left basilar lung opacities seen with trace left pleural effusion CXR 12/25 - Decreased lung volumes with probable increased atelectasis and small left pleural effusion echocardiogram is normal pt wanted Xarelto prescription sent to pharmacy to check affordability Pulmonology consulted Continue bronchodilators per pulm continue steroids VTE: Xarelto Code: Full Dispo: Home , ~24hrs Pt states she's in a lot of pain and short of breath however seen ambulating around floor and downstairs
[2022-12-25] MEDS: Oxycodone HCl/Acetaminophen 1 TAB TAB PO PRN ×2 (07:47→13:07)
[2022-12-25] MEDS ORDERED: PNEUMOCOCCAL VACCINE 0.5 ML IMVAC ONE (08:00)
[2022-12-25] MEDS: DULERA 200/5 (MOMETASONE/FORMOTEROL) INHALER IH SCH ×2 (09:00→20:27)
[2022-12-25] MEDS ORDERED: ALPRAZOLAM 2 MG PO SCH (09:00)
[2022-12-25] MEDS: RIVAROXABAN 15 MG TABLET PO SCH ×2 (09:24→20:26)
[2022-12-25] MEDS: AMLODIPINE 10 MG TAB PO SCH (09:24)
[2022-12-25] MEDS: predniSONE 20 MG TAB PO SCH ×2 (09:24→20:26)
[2022-12-25] MEDS: ALPRAZOLAM 1 MG TABLET PO PRN ×2 (09:29→20:27)
--- NOTE | 2022-12-25 10:12 | RAD REPORT ---
EXAM DESCRIPTION: RAD - Chest Single View - 12/25/2022 10:05 am CLINICAL HISTORY: PE Chest pain COMPARISON: Chest Single View dated 12/24/2022; CHEST SINGLE VIEW dated 07/07/2013; CHEST SINGLE VIEW dated 01/26/2013; CHEST SINGLE VIEW dated 08/27/2012; Chest For Pe Angio dated 12/24/2022; Abdomen Pe lvis W Contrast dated 12/24/2022 FINDINGS: Lines: None. Lungs: Decreased lung volumes with increased left basilar opacities. Pleural: Small left pleural effusion Cardiac: The heart size is within normal limits. Mediastinum: Within normal limits. Bones: No acute fractures. Other: None IMPRESSION: Decreased lung volumes with probable increased atelectasis and small left pleural effusi on .
[2022-12-25] MEDS: BENZONATATE 100 MG CAP PO PRN (10:52)
--- NOTE | 2022-12-25 12:15 | ECHO ---
HEIGHT: 6 ft 2 in WEIGHT: 205 lb 0 oz DATE OF STUDY: 12/25/[address]: Dk Borges MD 2-DIMENSIONAL: YES M.MODE: YES DOPPLER: YES COLOR FLOW: YES TDS: NO PORTABLE: YES DEFINITY: NO BUBBLE STUDY: NO DIAGNOSIS: BILATERAL PE CARDIAC HISTORY: CATHERIZATION: SURGERY: PROSTHETIC VALVE: PACEMAKER: MEASUREMENTS (cm) DIASTOLIC (NORMALS) SYSTOLIC (NORMALS) IVSd 1.0 (0.6-1.2) LA Diam 3.3 (1.9-4.0) LVEF 64% LVIDd 4.7 (3.5-5.7) LVIDs 3.0 (2.0-3.5) %FS 35% LVPWd 1.0 (0.6-1.2) Ao Diam 2.5 (2.0-3.7) 2 DIMENSIONAL ASSESSMENT: RIGHT ATRIUM: NORMAL LEFT ATRIUM: NORMAL RIGHT VENTRICLE: NORMAL LEFT VENTRICLE: NORMAL TRICUSPID VALVE: NORMAL MITRAL VALVE: NORMAL PULMONIC VALVE: NORMAL AORTIC VALVE: NORMAL PERICARDIAL EFFUSION: NONE AORTIC ROOT: NORMAL LEFT VENTRICULAR WALL MOTION: NORMAL. DOPPLER/COLOR FLOW: NORMAL. COMMENTS: NORMAL 2D ECHO WITH DOPPLER. NO PULMONARY HYPERTENSION. NO THROMBUS TECHNOLOGIST: ROD CRAVEN
--- NOTE | 2022-12-25 12:27 | P.PN ---
Subjective Date of Service: 12/25/22 Chief Complaint: Pulmonary embolism shortness of breath Subjective: Improving (Patient is improving still has some chest pain) Review of Systems Unremarkable Physical Examination - Vital Signs Temperature: 97.3 F Blood Pressure: 127/83 Pulse: 87 Respirations: 17 Pulse Ox (%): 97 - Physical Exam General: Alert, Oriented x3, Cooperative, Mild distress Respiratory: Clear to auscultation bilaterally, Friction rub Cardiovascular: Normal S1 S2 Assessment And Plan - Current Problems (Diagnosis) (1) Pulmonary embolism Current Visit: Yes Status: Acute Plan: Patient admitted with pulmonary embolus doing well has some chest pain I suspect from the pulmonary infarct can be discharged home on Xarelto as per protocol for PE needs lifelong treatment echocardiogram is normal chest x-ray possible atelectasis from her pulmonary embolism (2) COPD (chronic obstructive pulmonary disease) Current Visit: Yes Status: Acute Plan: Suspect patient has underlying significant COPD due to smoking will need a bronchodilator Qualifiers: COPD type: unspecified COPD Qualified Code(s): J44.9 - Chronic obstructive pulmonary disease, unspecified
[2022-12-26] MEDS: BENZONATATE 100 MG CAP PO PRN (00:59)
[2022-12-26] MEDS: MORPHINE 2 MG/ML SYR IV PRN ×2 (00:59→05:59)
[2022-12-26 06:05] LABS: Absolute Lymphocytes (CBC) 1.4 K/uL (0.7-4.9); Hematocrit 41.6 % (36.0-45.0); Lymphocytes % 9.5 % (15.3-44.8); MCV 95.2 fL (80-100); MPV 6.3 fL (7.6-11.3); RBC Red Blood Cell Count 4.37 M/uL (3.86-4.86)
[2022-12-26 06:24] LABS: Albumin 2.6 g/dL (3.4-5.0); Bilirubin Total 0.7 mg/dL (0.2-1.0); Potassium 3.6 mEq/L (3.5-5.1); Protein, Total 7.6 g/dL (6.4-8.2)
--- NOTE | 2022-12-26 08:04 | RAD REPORT ---
EXAM DESCRIPTION: RADChest Single View12/26/2022 4:17 am CLINICAL HISTORY: PE Chest pain COMPARISON: Chest Single View dated 12/25/2022; Chest Single View dated 12/24/2022; CHEST SINGLE VIEW dated 07/07/2013; CHEST SINGLE VIEW dated 01/26/2013 TECHNIQUE: Portable AP view of the chest. FINDINGS: Patchy bibasilar airspace opacities and interstitial prominence, progressive since the vonda or exam. Blunting of the left costophrenic angle which may suggest trace effusion. No pneumothorax or sizable effusion. The cardiomediastinal contours are unremarkable. IMPRESSION: Progressive bibasilar airspace opacities, may relate to worsening pulmonary edema or pne umonia.
--- NOTE | 2022-12-26 08:55 | P.DS ---
Admission Date: 12/24/22 Discharge Date: 12/26/22 Disposition: ROUTINE DISCHARGE Discharge Condition: GOOD Reason for Admission: Pulmonary embolism shortness of breath Brief History of Present Illness: Patient is 52 years woman who presented with right-sided arm pain, dyspnea on exertion and chest discomfort of 3 days duration. She also noticed swelling of her legs associated with shortness of breath. CTA thorax done in the emergency department demonstrated by pulm embolism. Patient has a history of DVT and PE in 2012 was treated with 6 months of Xarelto. No known precipitating like immobility or trauma. No risk factors like recent surgeries or known cancer. She is a non-smoker. Patient hospitalized for further management. Hospital Course: Diagnosis Pulmonary Embolism Chest pain hx of DVT, PE multiple family members with DVTs COPD, chronic Hypertension Nicotine Dependence CT Abdomen 12/24 -Moderate diffuse fatty liver. Moderate fecal retention throughout the colon CTA Chest 12/24 - Positive for bilateral pulmonary thromboembolism, with more extensive PE seen involving the left CXR 12/24 - Mild hazy left basilar lung opacities seen with trace left pleural effusion CXR 12/25 - Decreased lung volumes with probable increased atelectasis and small left pleural effusion echocardiogram is normal pt wanted Xarelto. Patient started on Xarelto for anticoagulation Patient seen by pulmonary and started on bronchodilator treatment and oral prednisone for COPD. Patient is not hypoxic. She states she is feeling much better today, her symptoms much improved. She is deemed stable for discharge. She is informed she will need work-up done for hypercoagulable disorders. Vital Signs/Physical Exam: Temp Pulse Resp BP Pulse Ox 98 F 85 16 140/65 99 12/26/22 04:00 12/26/22 04:00 12/26/22 05:59 12/26/22 04:00 12/26/22 05:59 General: Alert, In no apparent distress HEENT: Mucous membr. moist/pink Neck: JVD not distended Respiratory: Clear to auscultation bilaterally, Normal air movement Cardiovascular: No edema, Regular rate/rhythm, Normal S1 S2 Gastrointestinal: Normal bowel sounds, Soft and benign, Non-distended Musculoskeletal: No swelling Integumentary: No rashes, No cyanosis Neurological: Normal strength at 5/5 x4 extr Laboratory Data at Discharge: WBC 14.90 thou/uL (4.3-10.9) H 12/26/22 05:54 Hgb 13.9 g/dL (12.0-15.0) 12/26/22 05:54 Hct 41.6 % (36.0-45.0) 12/26/22 05:54 Plt Count 250 thou/uL (152-406) 12/26/22 05:54 PT 12.2 SECONDS (9.5-12.5) 12/24/22 10:52 INR 1.11 12/24/22 10:52 Sodium 134 mEq/L (136-145) L 12/26/22 05:54 Potassium 3.6 mEq/L (3.5-5.1) 12/26/22 05:54 BUN 14 mg/dL (7-18) 12/26/22 05:54 Creatinine 0.76 mg/dL (0.55-1.02) 12/26/22 05:54 Glucose 140 mg/dL (74-106) H 12/26/22 05:54 Magnesium 1.7 mg/dL (1.6-2.4) 12/24/22 10:52 Total Bilirubin 0.7 mg/dL (0.2-1.0) 12/26/22 05:54 AST 17 U/L (15-37) 12/26/22 05:54 ALT 26 U/L (13-56) 12/26/22 05:54 Alkaline Phosphatase 127 U/L (45-117) H 12/26/22 05:54 Lipase 17 U/L (13-75) 12/24/22 10:52 Home Medications: Alprazolam [Xanax] 1 mg PO BID 12/24/22 Amlodipine [Norvasc*] 10 mg PO DAILY 12/24/22 Oxycodone HCl/Acetaminophen [Endocet 10-325 mg Tablet] 1 each PO TID 12/24/22 Rivaroxaban [Xarelto] 15 mg PO DAILY #42 tablet 12/25/22 Rivaroxaban [Xarelto] 20 mg PO DAILY #30 tab 12/25/22 Benzonatate [Tessalon Perle*] 100 mg PO TID PRN #30 cap 12/26/22 Mometasone/Formoterol [Dulera 200 Mcg-5 Mcg Inhaler] 1 puff IH BID #1 inh 12/26/22 predniSONE [Prednisone*] 20 mg PO BID #6 tab 12/26/22 New Medications: Mometasone/Formoterol [Dulera 200 Mcg-5 Mcg Inhaler] 1 puff IH BID #1 inh predniSONE [Prednisone*] 20 mg PO BID #6 tab Benzonatate [Tessalon Perle*] 100 mg PO TID PRN #30 cap PRN Reason: Cough Rivaroxaban [Xarelto] 20 mg PO DAILY #30 tab Rivaroxaban [Xarelto] 15 mg PO DAILY #42 tablet Physician Discharge Instructions: Diet: AHA Followup: Tristan Bridges MD [ACTIVE - CAN ADMIT] - 1-2 Weeks (dye can operator- call to schedule an appointment) NONE,NONE [Primary Care Provider] - Physician Review: Patient Assessed, Agree with Above Assessment and Plan Time spent managing pt's care (in minutes): 35
[2022-12-26] MEDS: AMLODIPINE 10 MG TAB PO SCH (09:06)
[2022-12-26] MEDS: predniSONE 20 MG TAB PO SCH (09:07)
[2022-12-26] MEDS: RIVAROXABAN 15 MG TABLET PO SCH (09:07)
[2022-12-26] MEDS: DULERA 200/5 (MOMETASONE/FORMOTEROL) INHALER IH SCH (09:07)
[2022-12-26 09:09] VITALS: BP 126/79
[2022-12-26] MEDS: ALPRAZOLAM 1 MG TABLET PO PRN (09:11)
[2022-12-26] MEDS: Oxycodone HCl/Acetaminophen 1 TAB TAB PO PRN (09:13)
[2022-12-26 09:20] VITALS: TEMP 97
== END 2022-12-26 10:40 | disposition home or self-care (01) ==
LOC: ER 09:56 → ERHOLD 14:13 → 4TH 15:47
PROVIDERS: ADMIT Internal Medicine Sleep Medicine; ATTEND Internal Medicine
DX: I26.99 Other pulmonary embolism without acute cor pulmonale (principal); J44.9 Chronic obstructive pulmonary disease, unspecified; R07.9 Chest pain, unspecified; I10 Essential (primary) hypertension; F17.210 Nicotine dependence, cigarettes, uncomplicated; K76.0 Fatty (change of) liver, not elsewhere classified; R06.02 Shortness of breath; J90 Pleural effusion, not elsewhere classified; Z86.718 Personal history of other venous thrombosis and embolism
CPT/HCPCS: 93005; 93306; 85025 ×3; 81001; 80048; 36415 ×2; 83735; 85610; 85379; 80076; 84484 ×2; 83690; 80053; 83880; 71275; 74177; 71045 ×3; 93971; 96375; 96374; 99285; Q9967; J7512 ×5; J3535; J2270 ×7; J1170 ×3; J2405; G0378

== ENCOUNTER 2023-06-12 16:39 | Emergency (ER) | payer OTHER ==
--- OUTSIDE RECORDS SUMMARY | 2023-06-12 16:45 | XMS REPORT | Continuity of Care Document ---
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 1970 Screening for malignant [facility] 00:00:00 neoplasm of colon Medical Ce nter (procedure) [code = 579142792] Future Scheduled 1970 Sigmoidoscopy [facility]code = [facility]] Medical Cente r Future Scheduled 1970 Screening for malignant [facility] 00:00:00 neoplasm of breast Medical C enter (procedure) [code = 174489845] Future Scheduled 1970 CT Colonography (combo) [facility] 00:00:00 [code = CT Colonography [facility] (combo)] Future Scheduled 1970 Screening for malignant [facility] 00:00:00 neoplasm of colon Medical Ce nter (procedure) [code = 955447179] Future Scheduled 1970 Screening for malignant [facility] 00:00:00 neoplasm of colon Medical Ce nter (procedure) [code = 370346212] Future Scheduled 1970 Screening for malignant [facility] 00:00:00 neoplasm of colon Medical Ce nter (procedure) [code = 827536189] Future Scheduled 1970 Screening for malignant [facility] 00:00:00 neoplasm of colon Medical Ce nter (procedure) [code = 077680224] Future Scheduled 1970 Sigmoidoscopy [code = [facility]] Medical Cente r Future Scheduled 1970 Screening for malignant [facility] 00:00:00 neoplasm of breast Medical C enter (procedure) [code = 727966660] Future Scheduled 1970 CT Colonography (combo) [facility] 00:00:00 [code = CT Colonography [facility] (combo)] Future Scheduled 1970 Screening for malignant [facility] 00:00:00 neoplasm of colon Medical Ce nter (procedure) [code = 239031266] Future Scheduled 1970 Screening for malignant [facility] 00:00:00 neoplasm of colon Medical Ce nter (procedure) [code = 992337465] Future Scheduled 1970 Screening for malignant [facility] 00:00:00 neoplasm of colon Medical Ce nter (procedure) [code = 171522048] Future Scheduled 1970 Screening for malignant [facility] 00:00:00 neoplasm of breast Medical C enter (procedure) [code = 711808392] Future Scheduled 1970 CT Colonography (combo) [facility] 00:00:00 [code = CT Colonography [facility] (combo)] Future Scheduled 1970 Screening for malignant [facility] 00:00:00 neoplasm of colon Medical Ce nter (procedure) [code = 183078008] Future Scheduled 1970 Screening for malignant [facility] 00:00:00 neoplasm of colon Medical Ce nter (procedure) [code = 251625729] Future Scheduled 1970 Screening for malignant [facility] 00:00:00 neoplasm of colon Medical Ce nter (procedure) [code = 421753438] Future Scheduled 1970 Screening for malignant [facility] 00:00:00 neoplasm of colon Medical Ce nter (procedure) [code = 150012349] Future Scheduled 1970 Sigmoidoscopy [code = [facility]oscopy] Medical Cente r Encounters Start End Encounter Admission Attending Care Care Encounter Source Date/Time Date/Time Type Type Clinicians Facility Department ID 2022-07-27 Outpatient [facility] [id number] [place] 01:03:21 [id number] [facility] 2022-06-30 Outpatient [facility] [id number] [place] 01:02:12 [id number] [facility] 2022-03-06 Outpatient FERNANDEZ, [facility] [id number] [place] 12:00:42 [id number] [id number] [facility] 2022-02-22 Outpatient [facility] [id number] [place] 16:01:00 [id number] [facility] 2022-02-08 Outpatient [facility] [id number] [place] 06:05:00 [id number] [facility] 2022-02-07 Outpatient [facility] [id number] [place] 15:02:19 [id number] [facility] 2021-05-22 Inpatient ER MALLORY, [facility] Gastro [id number] SLE 11:27:13 LAMIN 2023-06-10 2023-06-10 Outpatient [id number] PRIV PRIV [id number] [facility] 00:00:00 00:00:00 chente_S [id number] Medic [facility] 2022-04-27 2022-04-28 Inpatient TIMOTHY, [facility] [id number] 06:43:00 15:25:00 DONTRELL Oden [facility] 2022-03-06 2022-04-04 Outpatient PRIMLORNA, [facility] [id number] 14:30:00 23:59:00 CHERELLE newman [facility] 2022-03-31 2022-03-31 Outpatient TIMOTHY, [facility] [id number] 06:03:00 08:48:00 [facility] 2022-03-24 2022-03-24 Outpatient PRIMLORNA, [facility] [id number] 09:30:00 23:59:00 CHERELLE Perdomo l [facility] 2022 2022-02-09 Inpatient Dino GAUTAM, [facility] [id number] [facility] 06:37:00 18:00:00 ANT 2022-01-17 2022-01-17 Outpatient RAHUL, [facility] [id number] 10:38:00 23:59:00 [facility] 2021-04-29 [facility] [id number] [facility] 00:00:00 00:00:00 BIJI Results Test Description Test Time Test Comments Results Result Sour e Comments TISSUE EXAM 2021-04-27 Surgical Pathology 13:15:38 Report Case: [id number] Authorizing Provider: Yamilex Cota MD Collected: 04/22/2021 10:18 AM Ordering Location: [facility] PERIOPERATIVE Received: 04/22/2021 11:00 AM SERVICES Pathologist: Amaya Peraza MD Specimen: Gallbladder GALLBLADDER, CHOLECYSTECTOMY:- CHRONIC CHOLECYSTITIS- CHOLELITHIASIS- CHOLESTEROLOSIS Signing Pathologist Direct Phone Line: [phone] ally signed by Amaya Peraza MD on 04/27/2021 at 1:15 [id number] asisGallbladderPerform ed.[facility], Department of Pathology, [address] [place] [address], [facility] of [facility], [address] [place] [address], [facility], Department of Pathology, [address] [place] [address], Zpykzfuv fresh labeled the patient's name, accession number [...] thick and displays multiple embedded black calculi. Student Dean sections are submitted in A1-A2, with the inked cystic duct margin in A1.MARCO Slaughter, KARISSA ([facility]) COMPREHENSIVE METABOLIC PANEL 2021-04-24 07:46:37 Test Item [...] NOT 1092) ACCURATE CRE ATININE CLEARANCE IN ND EDICTING GLOMERULAR FILT RATION RATE. ESTIMATED GFR IS NOT APPLICABLE FOR DIALYSIS PATIENTS. Engraving Supervisor ID Sumeet QUIROGA FCBC (HEMOGRAM ONLY)2021-04-24 07:03:46 [...] WBC 0-0 (BEAKER) (test code = 413) [id number] 07:25:27 Test Item Value Reference Range Interpretation Comments PHOSPHORUS (BEAKER) (test code = 2.5 mg/dL 2.3-4.7 604) Engraving Supervisor ID Sumeet MAKI [id number] 07:25:26 Test Item Value Reference Range Interpretation Comments MAGNESIUM (BEAKER) (test code = 1.9 mg/dL 1.6-2.6 627) Engraving Supervisor GEETA MAKI MCOMPREHENSIVE METABOLIC [id number] 07:25:25 Test Item Value Reference Range Interpretation [...] S NOT APPLICABLE FOR DIALYSIS PATIEN TS. Engraving Supervisor GEETA MAKI MCBC (HEMOGRAM ONLY)2021-04-23 06:17:56 Test Item Value [...] (BEAKER) (test code = 413) COMPREHENSIVE METABOLIC [id number] 05:27:00 Test Item Value Reference Range Interpretation [...] S NOT APPLICABLE FOR DIALYSIS PATIEN TS. Engraving Supervisor ID - PAZ [id number] 05:27:00 Test Item Value Reference Range Interpretation Comments MAGNESIUM (BEAKER) (test code = 1.9 mg/dL 1.6-2.6 627) Engraving Supervisor ID - PAZ [id number] 05:27:00 Test Item Value Reference Range Interpretation Comments PHOSPHORUS (BEAKER) (test code = 3.3 mg/dL 2.3-4.7 604) Engraving Supervisor ID - PAZ LCBC (HEMOGRAM ONLY)2021-04-22 04:50:00 [...] 0-0 (BEAKER) (test code = 413) SCREEN, [id number] 07:38:00 Test Item Value Reference Range Interpretation Comments TEST URINE (BEAKER) (test Negative code = 583) [id number] 07:13:00 Test Item Value Reference Range Interpretation Comments MAGNESIUM (BEAKER) (test code = 1.8 mg/dL 1.6-2.6 627) Engraving Supervisor ID - GLYNN [id number] 07:13:00 Test Item Value Reference Range Interpretation Comments PHOSPHORUS (BEAKER) (test code = 3.5 mg/dL 2.3-4.7 604) Engraving Supervisor ID - GLYNN MCOMPREHENSIVE METABOLIC [id number] 07:13:00 Test Item Value Reference Range Interpretation [...] S NOT APPLICABLE FOR DIALYSIS PATIEN TS. Engraving Supervisor ID - GLYNN MSpecimen slightly ictericCBC (HEMOGRAM [...] 0-0 (BEAKER) (test code = 413) FL, [id number] 12:19:00Reason for exam:->abnormal imagery [facility] 1970 Sex: FFluoroscopic unit utilized for a procedure performed in the OR. No interpretation was requested. Refer to the operative report for findings. Refer to PACS for patient radiation dose information.COMPREHENSIVE METABOLIC [id number] 06:27:00 Test Item Value Reference Range Interpretation [...] S NOT APPLICABLE FOR DIALYSIS PATIEN TS. Engraving Supervisor ID - PIAYA [id number] 06:27:00 Test Item Value Reference Range Interpretation Comments MAGNESIUM (BEAKER) (test code = 1.9 mg/dL 1.6-2.6 627) Engraving Supervisor ID - PAZ [id number] 06:27:00 Test Item Value Reference Range Interpretation Comments PHOSPHORUS (BEAKER) (test code = 3.9 mg/dL 2.3-4.7 604) Engraving Supervisor ID - PAZ LCBC (HEMOGRAM ONLY)2021-04-20 05:44:00 [...] 0-0 (BEAKER) (test code = 413) SARS-COV2/RT-PCR ([facility])2021-04-20 02:44:00 Test Item Value Reference Range Interpretation Comments SARS-COV2/RT-PCR (test code = Negative Negative [id number]) Negative result for this test determines that [...] 564(g) of the Act.Testing was performed using t PaeDae SARS-CoV-2 assay.Fact Sheet for Healthcare Providers:https://www.[employer].pollock/perry/RT SARS-CoV-2 HCP Fact Sheet 51- 361373.pdfFact Sheet for Healthcare Patients:https://www.molecular.pollock/perry/RT SARS-CoV-2 Patient Fact Sheet EN 51-079025Z8.pdfMR, ABDOMEN, [id number] 11:04:00Unlisted Reason for Exam - Click Yes and Enter Reason Below->No [facility] : 1970 Sex: FFINAL REPORT MR, ABDOMEN, [...] segment 5/6 and a 10 mm circumscribed F6mtzzyomplwieru in segment 7, incompletely characterized on this [...] Raya Verified Date/Time: 04/19/2021 11:04:09 Reading Location: [facility] Diagnostic Imaging Reading Room - [place] [address] HEPATITIS PANEL, [id number] 08:02:00 Test Item Value Reference Range Interpretation Comments HEPATITIS A IGM ANTIBODY (BEAKER) Nonreactive Nonreactive (test code = 498) HEPATITIS B CORE IGM ANTIBODY Nonreactive Nonreactive (BEAKER) (test code = 645) HEPATITIS C ANTIBODY (BEAKER) Nonreactive Nonreactive (test code = 367) HEPATITIS B SURFACE ANTIGEN (2) Nonreactive Nonreactive (BEAKER) (test code = 2585) Engraving Supervisor ID - GABRIEL CURINALYSIS W/ REFLEX URINE [id number] 05:17:00 Test Item Value Reference Range Interpretation [...] = 1584) SOURCE(BEAKER) (test code = 2795) Engraving Supervisor ID - [auto]Engraving Supervisor ID - [id number] 04:58:00 Test Item Value Reference Range Interpretation Comments LIPASE (BEAKER) (test code = 749) 19 U/L 8-78 Engraving Supervisor ID - GLYNN MSpecimen slightly ictericC-REACTIVE [id number] 04:58:00 Test Item Value Reference Range Interpretation Comments C-REACTIVE PROTEIN (BEAKER) (test 1.68 mg/dL 0.00-0.50 H code = 676) Engraving Supervisor ID - GLYNN [id number] 04:58:00 Test Item Value Reference Range Interpretation Comments MAGNESIUM (BEAKER) (test code = 1.8 mg/dL 1.6-2.6 627) Engraving Supervisor ID - GLYNN [id number] 04:58:00 Test Item Value Reference Range Interpretation Comments PHOSPHORUS (BEAKER) (test code = 2.8 mg/dL 2.3-4.7 604) Engraving Supervisor ID - GLYNN MCOMPREHENSIVE METABOLIC [id number] 04:58:00 Test Item Value Reference Range Interpretation [...] S NOT APPLICABLE FOR DIALYSIS PATIEN TS. Engraving Supervisor ID - GLYNN MSpecimen slightly ictericBILIRUBIN, [id number] 04:58:00 Test Item Value Reference Range Interpretation Comments BILIRUBIN DIRECT (BEAKER) (test 1.5 mg/dL 0.1-0.5 H code = 706) Engraving Supervisor ID - GLYNN MPROTHROMBIN TIME/[id number] 04:26:00 Test Item Value Reference Range Interpretation Comments PROTIME (BEAKER) 13.1 seconds 11.9-14.2 (test code = 759) INR (BEAKER) (test 1.01 See_Comment [Automat ed message] code = 370) The system GeneExcel generated this result transmitted ref erence range: <=5.90. The reference range was not used to int erpret this result as normal/abnormal . RECOMMENDED COUMADIN/WARFARIN INR THERAPY RANGESSTANDARD DOSE: 2.0 - 3.0 Includes: PROPHYLAXIS for venous thrombosis, systemic embolization; TREATMENT for venous thrombosis and/or pulmonary embolus.HIGH RISK: Target INR is 2.5-3.5 for patients with mechanical heart valves.CBC W/PLT COUNT & AUTO [id number] 04:21:00 Test Item Value Reference Range Interpretation [...] (BEAKER) (test code = 2801) U/S, ABDOMINAL, [id number] 03:10:00Abdomen limited area? Add comment if clarification is needed.->Gall BladderReason for exam:->ch oledocholithiasisShould this be performed at the bedside?->Yes [facility]OYOROMYDino SNYDER : 1970 Sex: FFINAL REPORT EXAM/TECHNIQUE: Limited [...] present without biliary dilatation. Signed: Danny Trammell [facility] Verified Date/Time: 04/19/2021 03:10:27
--- NOTE | 2023-06-12 17:48 | ER ---
Nurse's Notes [facility] Name: Vanna Swan Age: 53 yrs Sex: Female : 1970 Arrival Date: 06/12/2023 Time: 16:39 Bed 4 Private MD: Diagnosis: Adverse effect of other opioids, initial encounter;Syncope Presentation: 06/12 16:59 Chief complaint: EMS states: pt was found at [facility], lowered herself to the ground iw slowly, she was difficult to arouse, states she took 2 oxycodone pills. Coronavirus screen: At this time, the client does not indicate any symptoms associated with coronavirus-19. Ebola Screen: Patient negative for fever greater than or equal to 101.5 degrees Fahrenheit, and additional compatible Ebola Virus Disease symptoms Patient denies exposure to infectious person. Patient denies travel to an Ebola-affected area in the 21 days before illness onset. No symptoms or risks identified at this time. Initial Sepsis Screen: Does the patient meet any 2 criteria? No. Patient's initial sepsis screen is negative. Does the patient have a suspected source of infection? No. Patient's initial sepsis screen is negative. Risk Assessment: Do you want to hurt yourself or someone else? Patient reports no desire to harm self or others. Onset of symptoms was June 12, 2023. 16:59 Method Of Arrival: EMS: [facility] iw 16:59 Acuity: AILEEN 3 iw Historical: - PMHx: 17:01 Colitis; Hypertension; Irregular heart rate; Ulcers; iw - PSHx: 17:01 gastric; Cholecystectomy; neck injections; uterine ablation; iw Assessment: 17:31 Reassessment: pt refusing IV/urine at this time, Davis Millan at bedside to speak to pt. iw 18:01 Reassessment: pt left before d/c instructions or EKG. iw Vital Signs: 17:30 BP 135 / 96; Pulse 74; Resp 16; Temp 98; Pulse Ox 97% on R/A; iw ED Course: 16:52 Patient arrived in ED. jl7 16:55 Davis Millan PA is PHCP. cp 16:55 Davis Anthony MD is Attending Physician. cp 17:01 Triage completed. iw 17:01 Arm band placed on. iw 17:29 Adriana Hardwick, RN is Primary Nurse. iw Administered Medications: No medications were administered Outcome: 17:47 Discharge ordered by . greg 18:01 Discharged to home ambulatory, with family, iw 18:01 Condition: improved 18:01 Discharge instructions given to pt left before d/c instructions 18:06 Patient left the ED. iw Signatures: Adriana Hardwick, RN RN iw Davis Millan PA PA cp Leal, Jahala RN RN jl7
--- NOTE | 2023-06-12 17:48 | EDPHYS ---
Physician Documentation [facility] Name: Vanna Swan Age: 53 yrs Sex: Female : 1970 Arrival Date: 06/12/2023 Time: 16:39 Bed 4 Private MD: ED Physician Davis Anthony HPI: 06/12 17:10 This 53 yrs old Black Female presents to ER via EMS with complaints of Syncope. cp 17:10 The patient has experienced syncope, lost consciousness. Onset: The symptoms/episode cp began/occurred just prior to arrival. Duration: This was a single episode, that lasted an unknown period of time. Context: the episode(s) was witnessed, by a bystander, occurred local [facility], occurred while the patient was walking, Just prior to the episode the patient experienced lightheadedness, weakness. Associated injury: The patient did not suffer any apparent associated injury. Current symptoms: drowsiness. EMS reports patient was at [facility] when bystanders observed patient become weak and lose consciousness. Bystanders reports patient was able to sit on floor prior to loss of consciousness. Patient admits to taking 2 tablets of prescribed Percocet for back pain prior to loss of consciousness. Historical: - PMHx: 17:01 Colitis; Hypertension; Irregular heart rate; Ulcers; iw - PSHx: 17:01 gastric; Cholecystectomy; neck injections; uterine ablation; iw ROS: 17:15 Constitutional: Negative for body aches, chills, fever, poor PO intake, cp 17:15 Eyes: Negative for injury, pain, redness, and discharge, cp 17:15 Cardiovascular: Negative for chest pain, edema, palpitations, 17:15 Respiratory: Negative for cough, shortness of breath, wheezing, 17:15 Abdomen/GI: Negative for abdominal pain, nausea, vomiting, and diarrhea, 17:15 Back: Positive for chronic pain, 17:15 Neuro: Positive for loss of consciousness, weakness, Negative for altered mental status, 17:15 All other systems are negative, Exam: 17:20 Constitutional: The patient appears in no acute distress, alert, awake, cp non-diaphoretic, non-toxic, well developed, well nourished, 17:20 Head/Face: Normocephalic, atraumatic. cp 17:20 Eyes: Periorbital structures: appear normal, Pupils: pinpoint, bilaterally, Extraocular movements: intact throughout, Conjunctiva: normal, no exudate, no injection, Sclera: no appreciated abnormality, Lids and lashes: appear normal, bilaterally, 17:20 ENT: External ear(s): are unremarkable, Ear canal(s): are normal, clear, TM's: dullness, bilaterally, Nose: is normal, Mouth: Lips: dry, Oral mucosa: dry, Posterior pharynx: Airway: no evidence of obstruction, patent, erythema, is not appreciated, exudate, is not appreciated, 17:20 Neck: C-spine: vertebral tenderness, is not appreciated, crepitus, is not appreciated, ROM/movement: is normal, is supple, without pain, no range of motions limitations, 17:20 Chest/axilla: Inspection: normal, Palpation: is normal, no crepitus, no tenderness, 17:20 Cardiovascular: Rate: normal, Rhythm: regular, Edema: is not appreciated, JVD: is not appreciated, 17:20 Respiratory: the patient does not display signs of respiratory distress, Respirations: normal, no use of accessory muscles, no retractions, labored breathing, is not present, Breath sounds: are clear throughout, no decreased breath sounds, no stridor, no wheezing, 17:20 Abdomen/GI: Inspection: abdomen appears normal, Bowel sounds: active, all quadrants, Palpation: abdomen is soft and non-tender, in all quadrants, 17:20 Back: ROM is normal, 17:20 Neuro: Orientation: to person, place \T\ time. Mentation: able to follow commands, slow to respond, Motor: moves all fours, strength is normal, Sensation: no obvious gross deficits, Vital Signs: 17:30 BP 135 / 96; Pulse 74; Resp 16; Temp 98; Pulse Ox 97% on R/A; iw MDM: 16:56 Patient medically screened. cp 17:45 Data reviewed: vital signs, nurses notes, I have discussed the patient's cp presentation/case with the attending Emergency Department Physician; and as a result, I will discharge patient. 17:45 Differential Diagnosis: cardiac arrhythmia, drug effect, GI bleed, , pseudo cp seizure, seizure, sepsis, vasovagal episode. Refusal of service: The patient/guardian displays adequate decision making capability and despite a detailed discussion of alternatives, benefits, risks, and consequences refuses: all lab tests, EKG, any radiology studies. 06/12 17:04 Order name: Cardiac monitoring cp 06/12 17:04 Order name: EKG - Nurse/Tech cp 06/12 17:04 Order name: IV Saline Lock cp 06/12 17:04 Order name: Labs collected and sent cp 06/12 17:04 Order name: O2 Per Protocol cp 06/12 17:04 Order name: O2 Sat Monitoring cp Administered Medications: No medications were administered Disposition Summary: 06/12/23 17:47 Discharge Ordered Notes: Location: Home cp Problem: new cp Symptoms: have improved cp Condition: Stable cp Diagnosis - Adverse effect of other opioids, initial encounter cp - Syncope cp Followup: cp - With: Emergency Department - When: As needed - Reason: Worsening of condition Discharge Instructions: - Discharge Summary Sheet cp - Syncope cp - Opioid Pain Medicine Management cp - Warning Signs of Opioid Misuse cp Forms: - Medication Reconciliation Form cp - Thank You Letter cp - Antibiotic Education cp - Prescription Opioid Use cp - Patient Portal Instructions cp - Leadership Thank You Letter cp Signatures: Dispatcher [employer] Adriana Lanza, RN RN Davis Nieves PA PA cp
[2023-06-12 18:22] VITALS: BP 135/96; TEMP 98; O2SAT 97
== END 2023-06-12 18:06 | disposition home or self-care (01) ==
LOC: ER 16:39
DX: R55 Syncope and collapse (principal); T40.2X5A Adverse effect of other opioids, initial encounter
CPT/HCPCS: 99283

== ENCOUNTER 2025-05-08 06:38 | Emergency (ER) | payer OTHER ==
[2025-05-08] MEDS ORDERED: METOCLOPRAMIDE 10 MG/2mL INJ ONE (07:47)
[2025-05-08] MEDS ORDERED: PANTOPRAZOLE 40 MG INJ ONE (07:47)
[2025-05-08] MEDS ORDERED: FENTANYL CITR 100 MCG/2 ML ONE (07:48)
[2025-05-08] MEDS ORDERED: NA CHLORIDE 0.9% 1,000 ML ONE (07:48)
[2025-05-08 07:51] LABS: Absolute Lymphocytes (CBC) 1.4 K/uL (0.7-4.9); Hematocrit 42.2 % (36.0-45.0); Hemoglobin 14.1 g/dL (12.0-15.0); MCH 29.8 pg (27.0-35.0); MCHC 33.4 g/dL (32.0-36.0); MCV 89.4 fL (80-100); MPV 6.9 fL (7.6-11.3); Nucleated RBC Absolute Count 0.0 (0-0); Nucleated Red Blood Cells % 0.0 % (0-0); RBC Red Blood Cell Count 4.72 M/uL (3.86-4.86); White Blood Count 10.40 thou/uL (4.3-10.9)
[2025-05-08 08:13] LABS: PT Prothrombin Time 10.8 SECONDS (10-13.0); Protime INR 0.95
[2025-05-08 08:14] LABS: ALT/SGPT 20.0 U/L (13-56); AST/SGOT 13.0 U/L (15-37); Albumin 3.4 g/dL (3.4-5.0); Albumin/Globulin Ratio 0.8 (1.1-1.8); Alkaline Phosphatase 69.0 U/L (45-117); Anion Gap 9.6 mEq/L (5.0-15.0); BUN Blood Urea Nitrogen 15.0 mg/dL (7-18); Bilirubin Indirect, Calculated 0.7 mg/dL (0.2-0.8); Globulin 4.1 g/dL (2.3-3.5); Glucose Level 157.0 mg/dL (74-106); Lipase 41.0 U/L (13-75); Magnesium 2.2 mg/dL (1.6-2.4); NT PRO-BNP 10.0 pg/mL (<125); Potassium 3.6 mEq/L (3.5-5.1); Troponin High Sensitivity 3.9 pg/mL (<58.9)
--- NOTE | 2025-05-08 08:20 | RAD REPORT ---
EXAMINATION: ONE VIEW CHEST XR CLINICAL INDICATION: ABDOMINAL DISTENTION TECHNIQUE: Frontal chest projection is submitted. Examination is limited by patient positioning and t echnique. COMPARISON: 12/26/2022 FINDINGS: The lungs are well inflated and clear. The heart is upper limit of normal in size. No displaced fract ures identified. IMPRESSION: No acute intrathoracic abnormalities.
--- NOTE | 2025-05-08 08:43 | RAD REPORT ---
EXAMINATION: CT ABDOMEN AND PELVIS WITH CONTRAST CLINICAL INDICATION: ABD PAIN TECHNIQUE: CT abdomen and pelvis was performed, after the administration of IV contrast, [facility]. Axial, sagittal and coronal reconstructions were obtained. One or more of the following dose reduction techniques were used: Automated exposure control, adjustment of the mA and k V according to patient size, and iterative reconstruction. Unless otherwise specified, incidental findings do not require dedicated imaging follow-up. COMPARISON: 12/24/2022 FINDINGS: LOWER CHEST: The visualized lung bases are clear. Small hiatal hernia. Postsurgical changes about the stomach. LIVER: Mild fatty liver is present. No focal lesion or biliary dilatation is seen. 12 mm low-density lesion posterior right lobe of liver. Cholecystectomy clips. SPLEEN: Normal size. No focal lesion. PANCREAS: No mass, ductal dilation, or rafaela-pancreatic fluid. ADRENALS: Normal; no mass. KIDNEYS: Normal size and contour. No hydronephrosis. GASTROINTESTINAL TRACT: Mild free fluid is seen in the abdomen. Moderately thickened small bowel loop s with mucosal enhancement seen, particularly the ileum. Mild wall thickening of the colon as well. APPENDIX: Normal appendix. LYMPH NODES: No lymphadenopathy. MUSCULOSKELETAL: Mild anterior wedge compression deformity L2 and L4. IMPRESSION: Thickened small bowel loops are present with enhancement of the mucosa and edema in the pinon compati ble with nonspecific enteritis. This predominantly seems to impact the ileum. This may be related to infectious etiology or inflammatory bowel disease. There is also mild colonic wall thickening seen suggesting a component of colitis is also present.
--- NOTE | 2025-05-08 09:36 | EDPHYS ---
Physician Documentation [facility] Name: Vanna Swan Age: 55 yrs Sex: Female : 1970 Arrival Date: 05/08/2025 Time: 06:38 Bed 6 Private MD: ED Physician Davis Anthony HPI: 05/08 07:20 This 55 yrs old Black Female presents to ER via EMS with complaints of Abdominal Pain. giselle 07:20 The patient presents with abdominal pain abdominal distention. Onset: The giselle symptoms/episode began/occurred 2 day(s) ago. The patient presents to the emergency department with nausea, vomiting, abdominal pain, of the right lower quadrant and left lower quadrant. Onset: The symptoms/episode began/occurred 2 day(s) ago. Possible causes: unknown. The symptoms are aggravated by nothing. The symptoms are alleviated by nothing. Associated signs and symptoms: Pertinent positives: abdominal pain, nausea, vomiting. 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 - Infectious Disease History:: Denies. - Social history:: Smoking status: Reported history of juuling and/or vaping. Patient uses alcohol, only on a social basis. - Family history:: not pertinent. ROS: 07:20 Constitutional: Negative for fever, chills, and weight loss, Eyes: Negative for injury, giselle pain, redness, and discharge, ENT: Negative for injury, pain, and discharge, Neck: Negative for injury, pain, and swelling, Cardiovascular: Negative for chest pain, palpitations, and edema, Respiratory: Negative for shortness of breath, cough, wheezing, and pleuritic chest pain, Back: Negative for injury and pain, : Negative for injury, bleeding, discharge, and swelling, MS/Extremity: Negative for injury and deformity, Skin: Negative for injury, rash, and discoloration, Neuro: Negative for headache, weakness, numbness, tingling, and seizure, Psych: Negative for depression, anxiety, suicide ideation, homicidal ideation, and hallucinations, Allergy/Immunology: Negative for hives, rash, and allergies, Endocrine: Negative for neck swelling, polydipsia, polyuria, polyphagia, and marked weight changes, Hematologic/Lymphatic: Negative for swollen nodes, abnormal bleeding, and unusual bruising, 07:20 Abdomen/GI: Positive for of the right lower quadrant and left lower quadrant, Exam: 07:27 Constitutional: This is a well developed, well nourished patient who is awake, alert, giselle and in no acute distress. Head/Face: Normocephalic, atraumatic. Eyes: Pupils equal round and reactive to light, extra-ocular motions intact. Lids and lashes normal. Conjunctiva and sclera are non-icteric and not injected. Cornea within normal limits. Periorbital areas with no swelling, redness, or edema. ENT: Nares patent. No nasal discharge, no septal abnormalities noted. Tympanic membranes are normal and external auditory canals are clear. Oropharynx with no redness, swelling, or masses, exudates, or evidence of obstruction, uvula midline. Mucous membranes moist. Neck: Trachea midline, no thyromegaly or masses palpated, and no cervical lymphadenopathy. Supple, full range of motion without nuchal rigidity, or vertebral point tenderness. No Meningismus. Chest/axilla: Normal chest wall appearance and motion. Nontender with no deformity. No lesions are appreciated. Cardiovascular: Regular rate and rhythm with a normal S1 and S2. No gallops, murmurs, or rubs. Normal PMI, no JVD. No pulse deficits. Respiratory: Lungs have equal breath sounds bilaterally, clear to auscultation and percussion. No rales, rhonchi or wheezes noted. No increased work of breathing, no retractions or nasal flaring. Back: No spinal tenderness. No costovertebral tenderness. Full range of motion. Female : Normal external genitalia. Skin: Warm, dry with normal turgor. Normal color with no rashes, no lesions, and no evidence of cellulitis. MS/ Extremity: Pulses equal, no cyanosis. Neurovascular intact. Full, normal range of motion., bilateral aka Neuro: Awake and alert, GCS 15, oriented to person, place, time, and situation. Cranial nerves II-XII grossly intact. Motor strength 5/5 in all extremities. Sensory grossly intact. Cerebellar exam normal. Normal gait. Psych: Awake, alert, with orientation to person, place and time. Behavior, mood, and affect are within normal limits. 07:27 Abdomen/GI: Inspection: abdomen appears normal, Bowel sounds: normal, Palpation: moderate abdominal tenderness, in the right lower quadrant and left lower quadrant, Liver: no appreciated palpable abnormalities, Hernia: not appreciated, 08:20 ECG was reviewed by the Attending Physician. [facility] Vital Signs: 06:40 BP 129 / 86; Pulse 77; Resp 16; Temp 98.4; Pulse Ox 99% ; Weight 85.28 kg; Height 6 ft. zm 2 in. ; Pain 10/10; 08:00 BP 128 / 85; Pulse 78; Resp 18; Pulse Ox 100% ; db 08:34 BP 119 / 80; Pulse 59; Resp 12; Pulse Ox 99% ; Pain 8/10; pm7 09:34 BP 134 / 87; Pulse 75; Resp 16; Pulse Ox 100% on R/A; db 11:00 BP 122 / 87; Pulse 60; Resp 16; Temp 98.2; Pulse Ox 100% ; me1 06:40 Body Mass Index 24.14 (85.28 kg, 187.96 cm) zm 06:40 Pain Scale: Adult zm 08:34 Pain Scale: Adult pm7 MDM: 07:05 Medical Screening Exam initiated giselle 07:28 Differential diagnosis: Nonspecific abd pain, gastritis, cholecystitis, pancreatitis, giselle appendicitis, diverticulitis, viral gastroenteritis, gastroenteritis, diverticulitis, gastritis, gastroesophageal reflux disease, GI Bleed, Menorrhagia, Mesenteric ischemia or infarction, myocardia ischemia or infarction, non-specific abd pain, pancreatitis, Peptic Ulcer Disease, Perf. Duodenal Ulcer, Perf. Gastric Ulcer, Peritonitis, Ureterolithiasis, urinary tract infection. Data reviewed: vital signs, nurses notes, lab test result(s), EKG, radiologic studies, plain films. Consideration of Admission/Observation Patient was admitted/placed on observation. Escalation of care including admission/observation considered. I considered the following discharge prescriptions or medication management in the emergency department Medications were administered in the Emergency Department. See MAR. Independent interpretation of the following test(s) in the Emergency Department EKG: See my EKG interpretation above. Test considered but Not performed: Ultrasound no abd usg. 05/08 07:10 Order name: Basic Metabolic Panel; [facility] 05/08 07:10 Order name: CBC with Diff; Complete [facility] 05/08 07:10 Order name: LFT's; Complete [facility]: [facility] 05/08 07:10 Order name: Magnesium; Complete Time: [facility] 05/08 07:10 Order name: NT PRO-BNP; Complete [facility]: [facility] 05/08 07:10 Order name: PT-INR; Complete [facility]: [facility] 05/08 07:10 Order name: Troponin HS; Complete [facility]: [facility] 05/08 07:10 Order name: Lipase; Complete Time: [facility] 05/08 07:10 Order name: XRAY Chest (1 view); Complete Time: [facility] 05/08 07:16 Order name: CT Abd/Pelvis - IV Contrast Only; Complete Time: [facility] 05/08 07:10 Order name: Cardiac monitoring; Complete Time: 08: [facility] 05/08 07:10 Order name: EKG - Nurse/Tech; Complete Time: 08: [facility] 05/08 07:10 Order name: IV Saline Lock; Complete Time: 08: [facility] 05/08 07:10 Order name: Labs collected and sent; Complete Time: 08: [facility] 05/08 07:10 Order name: O2 Per Protocol; Complete Time: 08: [facility] 05/08 07:10 Order name: O2 Sat Monitoring; Complete Time: 08:02 [facility] EC:20 Rate is 67 beats/min. Rhythm is regular. QRS [place] is Normal. VA interval is normal. QRS giselle interval is normal. QT interval is normal. No Q waves. T waves are Normal. No ST changes noted. Clinical impression: Normal ECG and No evidence of ischemia. Interpreted by me. Reviewed by me. Administered Medications: 07:20 CANCELLED (Duplicate Order): [id number] mg IVP once; dilute with 10 mL 0.9% NaCl; [facility] give over 2 minutes 07:45 Drug: NS 0.9% IV 1000 ml IV at 1000 ml once; to be given as a bolus over 60 minutes db Route: IV; Rate: 1000 ml; Site: right antecubital; 10:06 Follow up: Response: No adverse reaction; IV Status: Completed infusion; IV Intake: db 1000ml 07:45 Drug: metoCLOPramide IVP 10 mg IVP once; over 1 to 2 minutes Route: IVP; Site: right db antecubital; 10:06 Follow up: Response: No adverse reaction db 07:45 Drug: fentaNYL (PF) IVP 50 mcg IVP once Route: IVP; Site: right antecubital; db 10:05 Follow up: Response: No adverse reaction db 07:45 Drug: Pantoprazole IVP 40 mg IVP once Route: IVP; Site: right antecubital; db 11:06 Follow up: Response: No adverse reaction me1 09:45 Drug: Ciprofloxacin IVPB 400 mg 200 ml IVPB once over 60 mins Volume: 200 ml; Route: db IVPB; Infused Over: 60 mins; Site: right antecubital; 11:07 Follow up: Response: No adverse reaction; IV Status: Completed infusion me1 09:48 Drug: metroNIDAZOLE IVPB 500 mg 100 ml IVPB at 200 ml/hr once over 30 mins Volume: 100 db ml; Route: IVPB; Rate: 200 ml/hr; Infused Over: 30 mins; Site: right antecubital; 11:07 Follow up: Response: No adverse reaction; IV Status: Completed infusion me1 09:48 Drug: MethylPrednisoLONE IVP 125 mg IVP once Route: IVP; Site: right antecubital; db 10:06 Follow up: Response: No adverse reaction db 09:48 Drug: predniSONE PO 20 mg PO once Route: PO; db 11:06 Follow up: Response: No adverse reaction me1 09:48 Drug: morphine IVP or IV 4 mg IVP once over 4 mins Route: IVP; Infused Over: 4 mins; db Site: right antecubital; 11:07 Follow up: Response: No adverse reaction; Pain is decreased me1 Disposition Summary: 05/08/25 09:36 Discharge Ordered Notes: Location: Home giselle Problem: new giselle Symptoms: have improved giselle Condition: Stable giselle Diagnosis - Abdominal pain, Generalized giselle - Left sided colitis giselle - Other specified noninfective gastroenteritis and colitis giselle - Vomiting giselle Followup: giselle - With: Private Physician - When: 2 - 3 days - Reason: Recheck today's complaints, Continuance of care, Re-evaluation by your physician Followup: giselle - With: Jason Randall MD - When: 2 - 3 days - Reason: Recheck today's complaints, Continuance of care, Re-evaluation by your physician Discharge Instructions: - Discharge Summary Sheet giselle - Abdominal Pain, Adult giselle - Abdominal Pain, Adult, [id number] giselle - Vomiting, Adult giselle - Colitis [facility] Forms: - Medication Reconciliation Form [facility] - Antibiotic Education giselle - Prescription Opioid Use giselle - Patient Portal Instructions [facility] - Leadership Thank You Letter [facility] Prescriptions: - ondansetron 4 mg Oral Tablet,disintegrating - take 1 tablet ORAL route every 6 hours as needed for nausea and vomiting; 24 giselle tablet; Refills: 0, Product Selection Permitted - Flagyl 500 mg Oral tablet - take 1 tablet ORAL route every 8 hours for 7 days; 21 tablet; Refills: 0, [facility] Product Selection Permitted - Cipro 500 mg Oral Tablet - take 1 tablet ORAL route every 12 hours for 7 days; 14 tablet; Refills: 0, [facility] Product Selection Permitted - Medrol (Toby) 4 mg Oral Tablets, Dose Pack - take 1 tablet ORAL route as directed - follow package instructions; 1 packet; [facility] Refills: 0, Product Selection Permitted - dicyclomine 20 mg Oral tablet - take 1 tablet ORAL route 4 times per day; 28 tablet; Refills: 0, Product [facility] Selection Permitted - Tylenol-Codeine #3 300mg-30mg Oral tablet - take 2 tablets ORAL route every 6 hours As needed; 16 tablet; Refills: 0, [facility] Product Selection Permitted Signatures: Dispatcher [employer] Davis Marcelino MD MD cha Martinez, Zaina RN RN Laura Petty RN RN db Eddleman, Michelle RN me1 Corrections: (The following items were deleted from the chart) 07:10 07:10 BASIC METABOLIC PANEL+C.LAB.BRZ ordered. EDMS EDMS 07:10 07:10 CBC+H.LAB.BRZ ordered. EDMS EDMS 07:10 07:10 HEPATIC FUNCTION+C.LAB.BRZ ordered. EDMS EDMS 07:10 07:10 MAGNESIUM+C.LAB.BRZ ordered. EDMS EDMS 07:10 07:10 PROBNP+C.LAB.BRZ ordered. EDMS EDMS 07:10 07:10 PROTIME (+INR)+COAG.LAB.BRZ ordered. EDMS EDMS 07:10 07:10 Troponin High Sensitivity+C.LAB.BRZ ordered. EDMS EDMS 07:10 07:10 UA Rfx Mino Cult if indicated+U.LAB.BRZ ordered. EDMS EDMS 07:10 07:10 LIPASE+C.LAB.BRZ ordered. EDMS EDMS 07:11 07:10 Chest Single View+RAD.RAD.BRZ ordered. EDMS EDMS 07:20 07:10 Famotidine IVP 20 mg IVP once; dilute with 10 mL 0.9% NaCl; give over 2 minutes giselle ordered. giselle
--- NOTE | 2025-05-08 09:36 | ER ---
Nurse's Notes [facility] Name: Vanna Swan Age: 55 yrs Sex: Female : 1970 Arrival Date: 05/08/2025 Time: 06:38 Bed 6 Private MD: Diagnosis: Abdominal pain, Generalized;Left sided colitis;Other specified noninfective gastroenteritis and colitis;Vomiting Presentation: 05/08 06:40 Chief complaint: Patient states: I have gastroparesis and it started acting up bad zm tonight. Coronavirus screen: At this time, the client does not indicate any symptoms associated with coronavirus-19. Ebola Screen: Patient negative for fever greater than or equal to 101.5 degrees Fahrenheit, and additional compatible Ebola Virus Disease symptoms Patient denies exposure to infectious person. Patient denies travel to an Ebola-affected area in the 21 days before illness onset. No symptoms or risks identified at this time. Initial Sepsis Screen: Does the patient meet any 2 criteria? No. Patient's initial sepsis screen is negative. Does the patient have a suspected source of infection? No. Patient's initial sepsis screen is negative. Risk Assessment: Do you want to hurt yourself or someone else? Patient reports no desire to harm self or others. Onset of symptoms was May 07, 2025 at 23:00. 06:40 Method Of Arrival: EMS: [facility] 06:40 Acuity: AILEEN 3 zm Triage Assessment: 06:42 General: Appears in no apparent distress. uncomfortable, Behavior is calm, cooperative, zm appropriate for age. Pain: Complains of pain in abdomen Pain currently is 10 out of 10 on a pain scale. EENT: No deficits noted. No signs and/or symptoms were reported regarding the EENT system. Neuro: No deficits noted. Level of Consciousness is awake, alert, obeys commands, Oriented to person, place, time, situation, Appropriate for age. Cardiovascular: Capillary refill < 3 seconds in bilateral fingers Patient's skin is warm and dry. Respiratory: No deficits noted. Airway is patent Respiratory effort is even, unlabored, Respiratory pattern is regular, symmetrical. GI: Abdomen is round non-distended, Bowel sounds present X 4 quads. Abd is soft X 4 quads Abdomen is tender to palpation in right lower quadrant and left lower quadrant Reports lower abdominal pain, nausea, vomiting. : No signs and/or symptoms were reported regarding the genitourinary system. Derm: No deficits noted. No signs and/or symptoms reported regarding the dermatologic system. Skin is intact, is healthy with good turgor, Skin is dry, Skin is normal, Skin temperature is warm. Musculoskeletal: No deficits noted. No signs and/or symptoms reported regarding the musculoskeletal system. Circulation, motion, and sensation intact. Range of motion: intact in all extremities. 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 - Infectious Disease History:: Denies. - Social history:: Smoking status: Reported history of juuling and/or vaping. Patient uses alcohol, only on a social basis. - Family history:: not pertinent. Screenin:45 [facility] ED Fall Risk Assessment (Adult) History of falling in the last 3 months, zm including since admission No falls in past 3 months (0 pts) Confusion or Disorientation No (0 pts) Intoxicated or Sedated No (0 pts) Impaired Gait No (0 pts) Mobility Assist Device Used No (0 pt) Altered Elimination No (0 pt) Score/Fall Risk Level 0 - 2 = Low Risk Oriented to surroundings, Maintained a safe environment, Educated pt \T\ family on fall prevention, incl call for assistance when getting out of bed, Assessed \T\ reinforced patient's understanding of fall precautions. Abuse screen: Denies threats or abuse. Denies injuries from another. Nutritional screening: No deficits noted. Tuberculosis screening: No symptoms or risk factors identified. Assessment: 06:45 General: see triage assessment. zm 08:03 Reassessment: Patient appears in no apparent distress at this time. Patient and/or db family updated on plan of care and expected duration. Pain level reassessed. Patient is alert, oriented x 3, equal unlabored respirations, skin warm/dry/pink. General: Appears in no apparent distress. comfortable, Behavior is calm, cooperative. Pain: Complains of pain in abdomen. Neuro: Level of Consciousness is awake, alert, obeys commands, Oriented to person, place, time, situation. 09:00 Reassessment: Patient appears in no apparent distress at this time. Patient and/or db family updated on plan of care and expected duration. Pain level reassessed. Patient is alert, oriented x 3, equal unlabored respirations, skin warm/dry/pink. 10:06 Reassessment: PENDING ABX PRIOR TO DC. db Vital Signs: 06:40 BP 129 / 86; Pulse 77; Resp 16; Temp 98.4; Pulse Ox 99% ; Weight 85.28 kg; Height 6 ft. zm 2 in. ; Pain 10/10; 08:00 BP 128 / 85; Pulse 78; Resp 18; Pulse Ox 100% ; db 08:34 BP 119 / 80; Pulse 59; Resp 12; Pulse Ox 99% ; Pain 8/10; pm7 09:34 BP 134 / 87; Pulse 75; Resp 16; Pulse Ox 100% on R/A; db 11:00 BP 122 / 87; Pulse 60; Resp 16; Temp 98.2; Pulse Ox 100% ; me1 06:40 Body Mass Index 24.14 (85.28 kg, 187.96 cm) zm 06:40 Pain Scale: Adult zm 08:34 Pain Scale: Adult pm7 ED Course: 06:40 Patient arrived in ED. zm 06:42 Triage completed. zm 06:42 Arm band placed on right wrist. zm 06:45 Patient has correct armband on for positive identification. Placed in gown. Bed in low zm position. Call light in reach. Side rails up X 1. Client placed on continuous cardiac and pulse oximetry monitoring. NIBP monitoring applied. Door closed. Noise minimized. Warm blanket given. Pillow given. 06:45 Inserted saline lock: 20 gauge in right antecubital area, using aseptic technique. zm Blood collected. Flushed with 10 mL NS. 07:05 Davis Anthony MD is Attending Physician. giselle 07:15 Initial lab(s) drawn, by tn, sent to lab. db 07:40 Laura Dowling, DAILY is Primary Nurse. db 08:16 XRAY Chest (1 view) In Process Unspecified. EDMS 08:28 CT Abd/Pelvis - IV Contrast Only In Process Unspecified. EDMS 09:35 Jason Randall MD is Referral Physician. [facility] 10:00 Provided Education on: POC. Verbalized understanding.. me1 11:08 No provider procedures requiring assistance completed. me1 11:16 IV discontinued, intact, bleeding controlled, No redness/swelling at site. Pressure me1 dressing applied. Administered Medications: 07:20 CANCELLED (Duplicate Order): [id number] mg IVP once; dilute with 10 mL 0.9% NaCl; [facility] give over 2 minutes 07:45 Drug: NS 0.9% IV 1000 ml IV at 1000 ml once; to be given as a bolus over 60 minutes db Route: IV; Rate: 1000 ml; Site: right antecubital; 10:06 Follow up: Response: No adverse reaction; IV Status: Completed infusion; IV Intake: db 1000ml 07:45 Drug: metoCLOPramide IVP 10 mg IVP once; over 1 to 2 minutes Route: IVP; Site: right db antecubital; 10:06 Follow up: Response: No adverse reaction db 07:45 Drug: fentaNYL (PF) IVP 50 mcg IVP once Route: IVP; Site: right antecubital; db 10:05 Follow up: Response: No adverse reaction db 07:45 Drug: Pantoprazole IVP 40 mg IVP once Route: IVP; Site: right antecubital; db 11:06 Follow up: Response: No adverse reaction me1 09:45 Drug: Ciprofloxacin IVPB 400 mg 200 ml IVPB once over 60 mins Volume: 200 ml; Route: db IVPB; Infused Over: 60 mins; Site: right antecubital; 11:07 Follow up: Response: No adverse reaction; IV Status: Completed infusion me1 09:48 Drug: metroNIDAZOLE IVPB 500 mg 100 ml IVPB at 200 ml/hr once over 30 mins Volume: 100 db ml; Route: IVPB; Rate: 200 ml/hr; Infused Over: 30 mins; Site: right antecubital; 11:07 Follow up: Response: No adverse reaction; IV Status: Completed infusion me1 09:48 Drug: MethylPrednisoLONE IVP 125 mg IVP once Route: IVP; Site: right antecubital; db 10:06 Follow up: Response: No adverse reaction db 09:48 Drug: predniSONE PO 20 mg PO once Route: PO; db 11:06 Follow up: Response: No adverse reaction me1 09:48 Drug: morphine IVP or IV 4 mg IVP once over 4 mins Route: IVP; Infused Over: 4 mins; db Site: right antecubital; 11:07 Follow up: Response: No adverse reaction; Pain is decreased me1 Medication: 06:45 VIS not applicable for this client. zm Intake: 10:06 IV: 1000ml; Total: 1000ml. db Outcome: 09:36 Discharge ordered by . giselle 11:16 Discharged to home ambulatory, with significant other, [facility] 11:16 Condition: stable 11:16 Discharge instructions given to patient, significant other, Instructed on discharge instructions, follow up and referral plans. medication usage, Demonstrated understanding of instructions, follow-up care, medications, Prescriptions given X X6 11:17 Patient left the ED. me1 Signatures: Dispatcher [employer] Davis Marcelino MD MD cha Martinez, Zaina, RN Laura Mills RN RN db Eddleman, Michelle, RN RN me1 Liliana Cortes pm7
[2025-05-08] MEDS ORDERED: CIPROFLOXACIN 400mg IV 400 MG/200 ML BAG IV ONE (09:49)
[2025-05-08] MEDS ORDERED: METHYLPREDNISOLONE 125 MG INJ ONE (09:49)
[2025-05-08] MEDS ORDERED: predniSONE 20 MG TAB ONE (09:49)
[2025-05-08] MEDS ORDERED: MORPHINE 4 MG/ML SYR ONE (09:49)
[2025-05-08] MEDS ORDERED: METRONIDAZOLE 500mg IVPB 500 MG/100 ML BAG IV ONE (09:50)
[2025-05-08 11:30] VITALS: O2SAT 100
[2025-05-08 11:32] VITALS: BP 122/87; TEMP 98.2
== END 2025-05-08 11:17 | disposition home or self-care (01) ==
LOC: ER 06:38
DX: K51.50 Left sided colitis without complications (principal); K52.89 Other specified noninfective gastroenteritis and colitis; R11.10 Vomiting, unspecified
CPT/HCPCS: 96365; 96361; 93005; 85025; 80048; 36415; 83735; 85610; 80076; 84484; 83690; 83880; 74177; 71045; 96375; 99285; Q9967; J7512; J2765; J2470; J3010; J2919; J0744; J7030